=== PATIENT | female | born 1970 | race Caucasian/White ===

== ENCOUNTER 2025-02-03 21:55 | Emergency (ER) | payer MEDICAID, SELFPAY ==
--- NOTE | 2025-02-03 22:06 | EDNOTE_ITS ---
ED Chest Pain RME/HPI General Chief Complaint: Chest Pain Stated Complaint: CHEST PAIN Time Seen by Provider: 02/03/25 22:22 Arrival date/time: 02/03/25 21:55 Limitations: no limitations RME / HPI RME / HPI narrative: Dr. Bae's Main ED Evaluation: 54yo female with a history of DM presents to the ED for a chief complaint of mid chest pain. No radiation or migration. EMS administered nitroglycerin sublingual and 1-inch nitropaste en route. Blood sugar en route was 101. Patient reports associated diarrhea. No fever, chills, or any other associated symptoms. Related Data Home Medications ?Medication ?Instructions ?Recorded ?Confirmed insulin glargine 100 unit/mL (3 40 unit subcut QAM 10/30/22 mL) subcutaneous pen (Lantus Solostar U-100 Insulin) Previous Rx's ?Medication ?Instructions ?Recorded blood sugar diagnostic (Accu-Chek #100 ea 08/07/22 Evelyn Plus test strips) pen needle, diabetic 32 gauge x #100 ea 08/07/2207/11 (BD Ultra-Fine Micro Pen Needle) insulin degludec 100 unit/mL (3 40 unit (0.4 mL) subcu t QAM 1 11/01/22 mL) subcutaneous pen (Tresiba month #12 mL FlexTouch U-100 insulin) insulin glargine 100 unit/mL (3 40 unit (0.4 mL) subcu t QAM 1 11/01/22 mL) subcutaneous pen (Lantus month #12 mL Solostar U-100 Insulin) insulin glargine U-300 conc 300 40 unit (0.1333 mL) bocanegra bcut QDAY 1 11/01/22 unit/mL (3 mL) subcutaneous pen month #3.999 mL (Toujeo Max U-300 SoloStar) insulin glargine-yfgn 100 unit/mL 40 unit (0.4 mL) sub cut QDAY 11/01/22 (3 mL) subcutaneous pen (Semglee month #12 mL (insulin glargine-yfgn) Pen) insulin lispro 100 unit/mL 12 unit (0.12 mL) subcut TI D 11/01/22 subcutaneous pen month #10.8 mL insulin glargine 100 unit/mL 20 unit (0.2 mL) subcut B ID #20 mL 11/09/23 subcutaneous solution (Lantus U-100 Insulin) Allergies Allergy/AdvReac Type Severity Reaction Status Date / Time codeine Allergy Mild Vomiting Verified 11/09/23 19:56 Review of Systems Review of Systems Systems Reviewed: All systems reviewed, normal except as documented Past Medical History Past Medical History NEUROLOGIC: Positive Cerebrovascular Accident CARDIAC: Negative Congestive Heart Failure RESPIRATORY: Negative Chronic Obstructive Pulmonary Disease (COPD) GASTROINTESTINAL: Negative Gastrointestinal Disorders GENITOURINARY: Negative Renal Disease ENDOCRINE: Positive Endocrine Disorders and Diabetes Mellitus Type 1; Negative Diabetes Mellitus Type 2 PSYCHO/SOCIAL: Positive Psychiatric Problems, Recreational Drug Use and Anxiety OTHER HISTORY: Positive Chicken Pox and Hepatitis C (2011) Surgical History SURGICAL: Positive Tonsillectomy and Tubal Ligation Social History SMOKING STATUS: Former smoker SECOND HAND EXPOSURE: No SUBSTANCE USE: former substance user, IV drugs and methamphetamine ED Exam General Limitations: Present no limitations General appearance: Present alert and in no apparent distress Head Head exam: Present atraumatic Eye Eye exam: Present normal appearance, PERRL and EOMI ENT ENT exam: Present normal exam, normal oropharynx and mucous membranes moist Neck Neck exam: Present normal inspection, full ROM and trachea midline Chest Chest inspection: Present normal inspection and symmetric chest wall rise Respiratory Respiratory exam: Present normal lung sounds bilaterally Cardiovascular Cardiovascular exam: Present regular rate, normal rhythm and normal heart sounds Abdominal Exam Abdominal exam: Present soft and normal bowel sounds Extremities Exam Extremities exam: Present normal inspection and full ROM Back Exam Back exam: Present normal inspection and full ROM Neurological Exam Neurological exam: Present alert, oriented X3 and CN II-XII intact Psychiatric Psychiatric exam: Present normal affect and normal mood Skin Skin exam: Present warm, dry, intact and normal color Course Course Course Narrative: CXR is ordered for determining the etiology of chest pain. Quality Measures none Orders Category Date Time Status EKG (ED ONLY) *Do not use* NOW Care 02/03/25 22:02 Completed CXRP [XR chest 1V portable] Stat Exams 02/03/25 22:23 Completed EKG (ED Only) Stat Exams 02/03/25 22:02 Ordered BNP [B-Type Natriuretic Peptide] Stat Lab 02/03/25 22:32 Completed Beta Hydroxybutyrate Stat Lab 02/03/25 23:17 Completed CBC Stat Lab 02/03/25 22:32 Completed CMP [Comprehensive Metabolic Panel] Stat Lab 02/03/25 22:32 Completed Drug Screen,Urine Stat Lab 02/04/25 00:18 Completed HCG Qualitative,Urine Stat Lab 02/04/25 00:18 Completed Magnesium Stat Lab 02/03/25 22:32 Completed Troponin I Stat Lab 02/03/25 22:32 Completed Troponin I Stat Lab 02/04/25 02:35 Completed Diazepam Inj [Valium Inj] Med 02/03/25 22:43 Discontinued 2 mg IVP X1 ONE Sodium Chloride 0.9% 1000 ml [Ns] 1,000 ml Med 02/03/25 22:23 Discontinued IV 999 mls/hr Sodium Chloride 0.9% 1000 ml [Ns] 1,000 ml Med 02/03/25 22:25 Discontinued IV 999 mls/hr Vital Signs Vital signs: Vital Signs Temperature 96.9 F 02/03/25 22:19 Pulse Rate 100 02/03/25 22:19 Respiratory Rate 24 H 02/03/25 22:19 Blood Pressure 89/68 L 02/03/25 22:19 Pulse Oximetry (%) 99 02/03/25 22:19 Oxygen Delivery Method Room Air 02/03/25 22:19 Chest Pain MDM Narrative MDM Narrative:: Scribe Attestation: 02/03/25 Ghada Felipe am scribing for and in the presence of Dr. Bae. Patient data External records reviewed:: [facility] previous records (Per chart review, patient was seen here on 11/09/23 for dehydration.) and EMS form Clinical information provided by:: patient and EMS Social determinants that could affect healthcare access:: substance use (history of methamphetamine abuse) Patient has the following chronic illnesses:: DM How is presenting disease/condition affected by chronic disease/condition?: uneffected by Evaluation data The following diagnostics were reviewed and interpreted by me:: lab results, radiology exam(s) and EKG tracing(s) Lab and/or radiology exams considered but not ordered:: none Interpretation Summary: WBC 15.7, Troponin x2 normal, BNP normal, Electrolytes normal, HCG negative, UDS positive for methamphetamines. EKG done at 2202, sinus tachycardia, rate of 106, RBBB, ST depression in V6, no ST elevations, according to my interpretation. [place] [address] [place] [facility] Report Signed Patient: SERGIO ALVARADO Record#: [id number] Birthdate: 1970 Age/Sex: 54 / F Location: [facility] Attending Dr: Ordering Physician: Clarissa Sandoval MD Date of Service: 02/03/25 Procedure(s): XR chest 1V portable Accession Number(s): [id number] cc: Foster Rizvi MD; NO PRIMARY/FAMILY,PHYSICIAN; Clarissa Sandoval MD~ Examination: AP chest single view TECHNIQUE: AP portable semiupright chest single view Date and time: February 03, 2025 10:41 PM INDICATION: Chest pain today. FINDINGS: Normal heart size Lungs are clear. The osseous structures are intact IMPRESSION: No active disease Dictated By: Foster Rizvi MD Signed By: <Electronically signed by Foster Rizvi MD in OV> 02/03/25 2232 Medications / Prescriptions Medications or Prescriptions considered but not ordered:: none Medication administrations:: Medication Administration History Discontinued Medications Diazepam (Diazepam Inj 5 Mg/Ml Vial 2 Ml) 2 mg IVP X1 ONE Stop: 02/03/25 22:44 Last Admin: 02/03/25 22:54 Dose: 2 mg Documented By: CHARU Sodium Chloride (Ns) 1,000 mls @ 999 mls/hr IV .Q1H1M ONE Stop: 02/03/25 23:23 Last Infusion: 02/04/25 00:14 Dose: Infused Documented By: Admin: 02/03/25 22:35 Dose: 999 mls/hr Documented By: CHARU Sodium Chloride (Ns) 1,000 mls @ 999 mls/hr IV .Q1H1M ONE Stop: 02/03/25 23:25 Last Infusion: 02/04/25 00:14 Dose: Infused Documented By: Admin: 02/03/25 22:37 Dose: 999 mls/hr Documented By: CHARU see above Consultations Consultation(s) initiated? (list below): No Diagnosis Chest Pain Differential Diagnosis: atypical chest pain and other (electrolyte abnormality, anxiety, NSTEMI, ischemia) Most likely diagnosis given after review of the tests above:: see clinical impression below Admission Indicated Admission indicated?: not indicated Explain why admission is indicated or not indicated:: Patient is resting comfortably and is stable to be discharged home. Admission Request Was there a request for admission?: No Disposition Plan Disposition Plan: Discharge Discharge Attestation Discharge Attestation: The patient and all family members were given an opportunity to ask questions and understood the discharge instructions. Discharge instructions specifically effects, indications for sooner follow up or return to the emergency department, and the expected course of current diagnosis. Patient condition: Stable Discharge Plan Plan Patient Disposition: HOME (Self Care) Patient condition on transfer: Stable Prescriptions/Referrals Prescriptions/Med Rec: No Action (DME) pen needle, diabetic [BD Ultra-Fine Micro Pen Needle] 32 gauge x 1/4 needle See Rx Instructions .Route Qty: 100 0RF Rx Instructions: As directed (DME) Accu-Chek Evelyn Plus test strp Strip See Rx Instructions .Route Qty: 100 0RF Rx Instructions: As directed insulin glargine [Lantus Solostar U-100 Insulin] 100 unit/mL (3 mL) insulin pen 40 unit SUBCUT QAM insulin glargine-yfgn [Semglee(insulin glarg-yfgn)Pen] 100 unit/mL (3 mL) insulin pen 40 unit subcut QDAY 30 Days Qty: 12 2RF insulin glargine [Lantus Solostar U-100 Insulin] 100 unit/mL (3 mL) insulin pen 40 unit subcut QAM 30 Days Qty: 12 2RF Toujeo Max U-300 SoloStar 300 unit/mL (3 mL) insulin pen 40 unit subcut QDAY 30 Days Qty: 3.999 2RF Rx Instructions: Sending multiple prescriptions. Please only dispense 1 form of insulin which is covered/cheapest option for patient. insulin degludec [Tresiba FlexTouch U-100] 100 unit/mL (3 mL) insulin pen 40 unit subcut QAM 30 Days Qty: 12 2RF insulin lispro 100 unit/mL insulin pen 12 unit subcut TID 30 Days Qty: 10.8 2RF insulin glargine [Lantus U-100 Insulin] 100 unit/mL solution 20 unit subcut BID Qty: 20 0RF Referrals: [facility] [Outside] - In 1 week Problem List Clinical Impression: Atypical chest pain Patient/Caregiver Discharge Instructions Education Materials: ED Chest Pain, Uncertain Cause Additional Instructions: Return to the Emergency Department for worsening symptoms or other concerns. Please continue medication as prescribed. Print Language: Romanian Stand Alone Forms: Consuelo Award Info., Patient Portal Info Letter
[2025-02-03 22:15] VITALS: PULSE 100
[2025-02-03 22:16] VITALS: PULSE 100; O2SAT 94; BMI 25.4
[2025-02-03 22:19] VITALS: BP 89/68; PULSE 100; RESP 24; TEMP 36.1; O2SAT 99
--- NOTE | 2025-02-03 22:23 | XR_ITS ---
Examination: AP chest single view TECHNIQUE: AP portable semiupright chest single view Date and time: February 03, 2025 10:41 PM INDICATION: Chest pain today. FINDINGS: Normal heart size Lungs are clear. The osseous structures are intact IMPRESSION: No active disease
[2025-02-03] MEDS: SODIUM CHLORIDE 0.9% 1000 ML 1,000 ML 999 ML IV ×2 (22:35→22:37)
[2025-02-03 22:38] VITALS: BP 94/69
[2025-02-03 22:50] LABS: Basophils # (Auto) 0.1 Thou/mm3 (0.0-0.2); Basophils % (Auto) 1 % (0-2.5); Eosinophils # (Auto) 0.1 Thou/mm3 (0.0-0.5); Eosinophils % (Auto) 1 % (0-10); Hematocrit 48.3 % (36.0-46.0); Hemoglobin 16.0 g/dL (12.0-16.0); Immature Granulocytes Auto 0.06 Thou/mm3 (0.00-0.00); Lymphocytes # (Auto) 1.5 Thou/mm3 (1.0-4.8); Lymphocytes % (Auto) 10 % (10-50); Mean Corpuscular HGB Conc 33.1 g/dl (31.0-37.0); Mean Corpuscular Hemoglobin 28.3 pg (25.0-35.0); Mean Corpuscular Volume 86 fL (80-100); Monocytes # (Auto) 0.7 Thou/mm3 (0.0-0.8); Monocytes % (Auto) 5 % (0-12); Neutrophils # (Auto) 13.2 Thou/mm3 (1.8-7.7); Neutrophils % (Auto) 84 % (37-80); Nucleated Red Blood Cell # 0.00 Thou/mm3 (0.00-0.00); Nucleated Red Blood Cell % 0 /100 WBC (0); Platelet Count 473 Thou/mm3 (140-440); RDW Standard Deviation 41.1 fL (36.4-46.3); Red Blood Count 5.65 Miln/mm3 (4.00-5.20); White Blood Count 15.7 Thou/mm3 (3.6-11.0)
[2025-02-03] MEDS: DIAZEPAM INJ 5 MG/ML VIAL 2 ML 2 MG IVP (22:54)
[2025-02-03 23:13] LABS: B-Type Natriuretic Peptide 20 pg/mL (0-100)
[2025-02-03 23:14] LABS: Alanine Aminotransferase 131 U/L (10-49); Albumin, Serum 5.2 gm/dL (3.5-5.0); Albumin/Globulin Ratio 1.4 (1.2-2.2); Alkaline Phosphatase 151 U/L (46-116); Anion Gap 10 (7-16); Aspartate Amino Transferase 73 U/L (0-34); BUN/Creatinine Ratio 19 Ratio (12-20); Bilirubin,Total 0.6 mg/dL (0.3-1.2); Blood Urea Nitrogen 19 mg/dL (9-23); Calcium 10.9 mg/dL (8.3-10.6); Calcium (Corrected) 10.9 mg/dL (8.5-10.1); Carbon Dioxide 26.0 mMol/L (20.0-31.0); Chloride 100 mMol/L (98-107); Creatinine (Component) 1.0 mg/dL (0.6-1.3); Estimated Creatinine Clearance 56.8 mL/min (>60); Globulin 3.7 gm/dL (2.3-3.5); Glucose 97 mg/dL (74-106); Osmolality,Calculated 274 (275-295); Potassium 3.5 mMol/L (3.4-5.1); Sodium 136 mMol/L (136-145); Total Protein 8.9 gm/dL (5.7-8.2); Troponin I < 0.002 ng/mL (0.0-0.045); eGFR > 60 See Note
[2025-02-03 23:28] LABS: Beta Hydroxybutyrate 0.2 mmol/L (<0.6)
[2025-02-03 23:40] LABS: Magnesium 1.8 mg/dL (1.6-2.6)
[2025-02-04 00:19] VITALS: BP 133/83; PULSE 101; RESP 15; O2SAT 95
[2025-02-04 00:24] VITALS: PULSE 99
--- NOTE | 2025-02-04 00:40 | PC.NURSE ---
PT AMBULATED TO RESTROOM WITHOUT ASSISTANCE. PTS GAIT WAS STEADY. PT DENIES WEAKNESS AND SOB
[2025-02-04 00:45] LABS: HCG Qualitative,Urine Negative
[2025-02-04 00:59] LABS: Amphetamine/Methamp Scrn,U Positive (Negative); Barbiturate Screen,Urine Negative (Negative); Benzodiazepines Screen,Urine Negative (Negative); Benzoylecgonine Screen, Ur Negative (Negative); Fentanyl Screen,Urine Negative (Negative); Opiate Screen,Urine Negative (Negative); THC Screen,Urine Negative (Negative)
[2025-02-04 03:03] LABS: Troponin I < 0.002 ng/mL (0.0-0.045)
[2025-02-04 03:21] VITALS: BP 114/73; PULSE 102; RESP 17; TEMP 36.5; O2SAT 95
--- NOTE | 2025-02-04 03:24 | PC.NURSE ---
patient is resting quietly in bed with eyes closed, respirations are even and unlabored, and there is no acute distress. CHEST RISE AND FALL NOTED. PT WAS AWAKEN FOR VITAL SIGNS
[2025-02-04 05:16] VITALS: BP 115/80; PULSE 95; RESP 18; TEMP 36.1; O2SAT 95
== END 2025-02-04 05:17 | disposition home or self-care (01) ==
PROVIDERS: Emergency Provider Emergency Medicine
DX: R07.89 Other chest pain (principal); R00.0 Tachycardia, unspecified; I45.10 Unspecified right bundle-branch block
CPT/HCPCS: 36415; 71045; 80053; 80307; 81025; 82010; 83735; 83880; 84484; 85025; 93005; 96361; 96374; 99283; J3360; J7030

== ENCOUNTER 2025-05-03 00:38 | Inpatient (IN) | payer SELFPAY ==
[2025-05-03] VITALS (41 sets, daily range): BP systolic 65–142; BP diastolic 43–80; PULSE 66–120; RESP 14–31; TEMP 36.5–37.4; O2SAT 90–100; BMI 25.5; BMI 25.4
--- NOTE | 2025-05-03 01:07 | PD.EDRME ---
Rapid Medical Screening Exam RME Arrival date/time: 05/03/25 00:38 This is a case of 55-year-old female with history of diabetes and DKA came into the emergency room due to abdominal pain nausea vomiting today worsening of the symptoms this patient decided to start consulted in the emergency room Chief Complaint: Nausea/Vomiting/Diarrhea Time Seen by Provider: 05/03/25 01:06 Vital signs: Vital Signs Temperature 97.7 F 05/03/25 00:52 Pulse Rate 66 05/03/25 00:52 Respiratory Rate 26 H 05/03/25 00:52 Blood Pressure 65/43 L 05/03/25 00:52 Pulse Oximetry (%) 98 05/03/25 00:52 Oxygen Delivery Method Room Air 05/03/25 00:52 Exam: Patient is dehydrated in distress mild to moderate tenderness on the periumbilical area Clinical Impression: Abdominal pain nausea vomiting hyperglycemia hypotensive
[2025-05-03] MEDS: SODIUM CHLORIDE 0.9% 1000 ML 1,000 ML 999 ML IV ×2 (01:37→02:20)
[2025-05-03 01:54] LABS: Base Excess, Venous -19 (-3-3); O2 Saturation, Venous 79 % (96-97); PCO2, Venous 31 mmHg (36-56); PO2, Venous 50 mmHg (15-58); pH, Venous 7.11 (7.33-7.66)
[2025-05-03 01:58] LABS: Basophils # (Auto) 0.1 Thou/mm3 (0.0-0.2); Basophils % (Auto) 0 % (0-2.5); Eosinophils # (Auto) 0.0 Thou/mm3 (0.0-0.5); Eosinophils % (Auto) 0 % (0-10); Hematocrit 45.4 % (36.0-46.0); Hemoglobin 14.6 g/dL (12.0-16.0); Immature Granulocytes Auto 0.31 Thou/mm3 (0.00-0.00); Lymphocytes # (Auto) 1.8 Thou/mm3 (1.0-4.8); Lymphocytes % (Auto) 6 % (10-50); Mean Corpuscular HGB Conc 32.2 g/dl (31.0-37.0); Mean Corpuscular Hemoglobin 29.6 pg (25.0-35.0); Mean Corpuscular Volume 92 fL (80-100); Monocytes # (Auto) 2.2 Thou/mm3 (0.0-0.8); Monocytes % (Auto) 7 % (0-12); Neutrophils # (Auto) 26.0 Thou/mm3 (1.8-7.7); Neutrophils % (Auto) 86 % (37-80); Nucleated Red Blood Cell # 0.00 Thou/mm3 (0.00-0.00); Nucleated Red Blood Cell % 0 /100 WBC (0); Platelet Count 441 Thou/mm3 (140-440); RDW Standard Deviation 43.3 fL (36.4-46.3); Red Blood Count 4.93 Miln/mm3 (4.00-5.20); White Blood Count 30.3 Thou/mm3 (3.6-11.0)
--- NOTE | 2025-05-03 01:59 | EDNOTE_ITS ---
Nausea/Vomit./Diarrhea-RME/HPI General Chief complaint: Nausea/Vomiting/Diarrhea Stated complaint: VOMITING, HISTORY DKA, TYPE 1 DM Time Seen by Provider: 05/03/25 01:06 Arrival date/time: 05/03/25 00:38 RME / HPI RME / HPI Narrative: 05/03/25 00:38 This is a case of 55-year-old female with history of diabetes and DKA came into the emergency room due to abdominal pain nausea vomiting today worsening of the symptoms this patient decided to start consulted in the emergency room Dr. Tello?s Main ED Evaluation: 55yo female known IDDM presenting with gross hematemesis intermittently x 1 week up to 5 episodes. Patient reports generalized fatigue and lightheadedness with standing. No fever or chills. Reports blood sugar has been running high . Denies noncompliance regarding i nsulin. No melena or hematochezia. No prior history of PUD or esophageal varices. PSH noncontributory. Reports heavy smoker, denies alcohol or illicit drug use. Related Data Home Medications ?Medication ?Instructions ?Recorded ?Confirmed insulin glargine 100 unit/mL (3 40 unit subcut QAM 10/30/22 mL) subcutaneous pen (Lantus Solostar U-100 Insulin) Previous Rx's ?Medication ?Instructions ?Recorded blood sugar diagnostic (Accu-Chek #100 ea 08/07/22 Evelyn Plus test strips) pen needle, diabetic 32 gauge x #100 ea 08/07/2207/11 (BD Ultra-Fine Micro Pen Needle) insulin degludec 100 unit/mL (3 40 unit (0.4 mL) subcu t QAM 1 11/01/22 mL) subcutaneous pen (Tresiba month #12 mL FlexTouch U-100 insulin) insulin glargine 100 unit/mL (3 40 unit (0.4 mL) subcu t QAM 11/01/22 mL) subcutaneous pen (Lantus month #12 mL Solostar U-100 Insulin) insulin glargine U-300 conc 300 40 unit (0.1333 mL) bocanegra bcut QDAY 11/01/22 unit/mL (3 mL) subcutaneous pen month #3.999 mL (Toujeo Max U-300 SoloStar) insulin glargine-yfgn 100 unit/mL 40 unit (0.4 mL) sub cut QDAY 1 11/01/22 (3 mL) subcutaneous pen (Semglee month #12 mL (insulin glargine-yfgn) Pen) insulin lispro 100 unit/mL 12 unit (0.12 mL) subcut TI D 1 11/01/22 subcutaneous pen month #10.8 mL insulin glargine 100 unit/mL 20 unit (0.2 mL) subcut B ID #20 mL 11/09/23 subcutaneous solution (Lantus U-100 Insulin) Allergies Allergy/AdvReac Type Severity Reaction Status Date / Time codeine Allergy Mild Vomiting Verified 05/03/25 00:39 Review of Systems Review of Systems Systems Reviewed: All systems reviewed, normal except as documented Past Medical History Past Medical History NEUROLOGIC: Positive Cerebrovascular Accident CARDIAC: Negative Congestive Heart Failure RESPIRATORY: Negative Chronic Obstructive Pulmonary Disease (COPD) GASTROINTESTINAL: Negative Gastrointestinal Disorders GENITOURINARY: Negative Renal Disease ENDOCRINE: Positive Endocrine Disorders and Diabetes Mellitus Type 1; Negative Diabetes Mellitus Type 2 PSYCHO/SOCIAL: Positive Psychiatric Problems, Recreational Drug Use and Anxiety OTHER HISTORY: Positive Chicken Pox and Hepatitis C (2011) Surgical History SURGICAL: Positive Tonsillectomy and Tubal Ligation Social History SMOKING STATUS: Current some day smoker SECOND HAND EXPOSURE: No SUBSTANCE USE: former substance user, IV drugs and methamphetamine ED Exam Narrative Physical exam: GENERAL APPEARANCE: alert and oriented x 4, active hematemesis, in mild distress VITALS: All vitals were reviewed and the pulse ox is 98% on room air, which is normal according to my interpretation. Notably hypotensive and tachycardic. HEENT: Normocephalic, atraumatic; pupils equal, round, reactive to light; EOMI; mucous membranes pink, moist; obvious blood in the oral cavity NECK: Supple LUNGS: CTABL; no wheezes, no rales, no rhonchi HEART: Tachycardic, regular rhythm; normal S1, S2; no murmurs ABDOMEN: non distended; normal BS; soft, no tenderness, no guarding, no rebound; no masses, no organomegaly, no hernia BACK: no CVA tenderness EXTREMITIES: atraumatic; no edema; slightly cold on palpation NEUROLOGIC: awake; alert and oriented x4; cranial nerves II-XII grossly intact; no focal sensory or motor deficits PSYCHIATRIC: appropriate mood and affect SKIN: warm, dry, pale; no rashes Course Quality Measures none Orders Category Date Time Status Bedside Blood Glucose STAT Care 05/03/25 02:31 Active Buffer Copper STAT Care 05/03/25 02:31 Active DKA Protocol QSHIFT Care 05/03/25 02:31 Active EKG (ED ONLY) *Do not use* NOW Care 05/03/25 02:32 Completed IV [Insert IV] NOW Care 05/03/25 01:32 Active Intake and Output Routine Care 05/03/25 02:31 Ordered NPO NOW Care 05/03/25 02:32 Active Notify provider NEEDED Care 05/03/25 02:31 Active Referral Registered Dietitian Routine Cons 05/03/25 02:[address] abdomen pelvis wo con Stat Exams 05/03/25 03:27 Taken EKG (ED Only) Stat Exams 05/03/25 02:31 Ordered XR chest 1V portable Stat Exams 05/03/25 02:52 Taken Arterial Blood Gas Stat Lab 05/03/25 02:58 Completed Beta HCG,Quantitative Stat Lab 05/03/25 01:36 Completed Beta Hydroxybutyrate Stat Lab 05/03/25 01:39 Completed Blood Culture (Lab) Stat Lab 05/03/25 01:39 Received CBC Stat Lab 05/03/25 01:39 Completed Comprehensive Metabolic Panel Stat Lab 05/03/25 01:39 Completed HCG Qualitative,Urine Stat Lab 05/03/25 04:33 Completed Lactate (Lactic Acid) Stat Lab 05/03/25 01:39 Results Lipase Stat Lab 05/03/25 01:39 Completed Magnesium Stat Lab 05/03/25 01:39 Completed Phosphorous Stat Lab 05/03/25 01:39 Completed Procalcitonin Stat Lab 05/03/25 01:36 Completed Type and Screen Stat Lab 05/03/25 02:30 Completed Urinalysis Stat Lab 05/03/25 04:33 Completed Urinalysis, C/S if Indicated Stat Lab 05/03/25 04:33 Received Venous Blood Gas Stat Lab 05/03/25 01:39 Completed ALBUTEROL RT 0.5ml [Proventil Rt 0.5ml] Med 05/03/25 02:41 Discontinued 10 mg INH X1 ONE Calcium Chloride 10% Abboject Med 05/03/25 02:41 Discontinued 10 ml IV X1 ONE Dextrose 5%-Lactated Ringers [D5-Lr] 1,000 ml Med 05/03/25 02:31 Active Pot Chl Additive [KCl Additive] 40 meq IV 250 mls/hr Dextrose 5%-Lactated Ringers [D5-Lr] 1,000 ml Med 05/03/25 02:31 Active IV 250 mls/hr Dextrose 50% Syr [D50w Syringe Abboject] Med 05/03/25 02:31 Active 25 ml IV PRNMRX1 PRN Insulin Regular Med 05/03/25 02:31 Discontinued 7 unit IV X1 ONE KCL 20 mEq/L in D5-LR Med 05/03/25 02:31 Active 20 meq in 1,000 ml IV 250 mls/hr Magnesium Sulfate 2 GM Ivpb [Magnesium Sulfate Ivpb] Med 05/03/25 02:31 Active 2 gm in 50 ml IV 25 mls/hr POT PHOS 15 mMol in NS 250 ML [Pot Phos 15 mMol in NS Med 05/03/25 02:31 Active 250 ml] 15 mmol in 250 ml IV PRN POTASSIUM CHL 10 mEq IVPB [Kcl Ivpb] Med 05/03/25 02:31 Active 10 meq in 100 ml IV 100 mls/hr POTASSIUM CHL 10 mEq IVPB [Kcl Ivpb] Med 05/03/25 02:31 Active 10 meq in 100 ml IV PRN Pantoprazole Inj [Protonix Inj] Med 05/03/25 02:09 Discontinued 80 mg IVP X1 ONE Pantoprazole Inj [Protonix Inj] Med 05/03/25 02:37 Discontinued 80 mg IVP X1 ONE Pantoprazole/Ns 80Mg IV Premix [Protonix/NS 80mg IV Med 05/03/25 02:10 Active Premix] 80 mg in 100 ml IV Q10H Piper/Tazo Inj [Zosyn Inj] 3.375 gm Med 05/03/25 02:45 Discontinued Sodium Chloride 0.9% (Pop) [NS 0.9% mini bag] 100 ml IV X1 Piper/Tazo Inj [Zosyn Inj] 4.5 gm Med 05/03/25 06:00 Pending Sodium Chloride 0.9% (Pop) [NS 0.9% mini bag] 100 ml IV Q8HR Pre-Mixed [Pre-mixed Bag] 1 bag Med 05/03/25 02:31 Active Insulin Reg 100 Units/100 ml [Myxredlin] 100 unit IV 0.1 unit/kg/hr Ringers Lactated 1000 ml [Lactated Ringers] 1,000 ml Med 05/03/25 02:31 Active Pot Chl Additive [KCl Additive] 20 meq IV 250 mls/hr Ringers Lactated 1000 ml [Lactated Ringers] 1,000 ml Med 05/03/25 02:31 Active Pot Chl Additive [KCl Additive] 40 meq IV 250 mls/hr Ringers Lactated 1000 ml [Lactated Ringers] 1,000 ml Med 05/03/25 02:31 Active IV 250 mls/hr Sodium Bicarb 8.4% SYR Med 05/03/25 02:31 Active 50 ml IV Q4HR PRN Sodium Chloride 0.9% 1000 ml [Ns] 1,000 ml Med 05/03/25 01:06 Discontinued IV 999 mls/hr Sodium Chloride 0.9% 1000 ml [Ns] 1,000 ml Med 05/03/25 02:09 Discontinued IV 999 mls/hr Sodium Chloride 0.9% 1000 ml [Ns] 1,000 ml Med 05/03/25 02:11 Discontinued IV 999 mls/hr Sodium Chloride 0.9% 250 ml [Ns] 250 ml Med 05/03/25 02:31 Active Sod Phos Additive [NaPhos Additive] 15 mmol IV 62.5 mls/hr Sodium Chloride Rt Sarai 0.9% [NS Rt Sarai 0.9%] Med 05/03/25 02:41 Active 3 ml INH PRN PRN Vancomycin Inj 1,000 mg Med 05/03/25 02:38 Discontinued Sodium Chloride 0.9% 250 ml [Ns] 250 ml IV X1 Vital Signs Vital signs: Vital Signs Temperature 97.7 F 05/03/25 00:52 Pulse Rate 66 05/03/25 00:52 Respiratory Rate 26 H 05/03/25 00:52 Blood Pressure 65/43 L 05/03/25 00:52 Pulse Oximetry (%) 98 05/03/25 00:52 Oxygen Delivery Method Room Air 05/03/25 00:52 Nausea/Vomiting/Diarrhea MDM Narrative MDM Narrative:: Scribe Attestation: 05/03/25 - I, Ghada Prashant, am scribing for and in the presence of Dr. Tello. 55yo female known IDDM presenting with gross hematemesis intermittently x 1 week up to 5 episodes. Patient reports generalized fatigue and lightheadedness with standing. Please see PE findings. Lab markers demonstrated WBC 30.3, Hgb 14.6, left shift without bandemia. Chemistries demonstrated markedly elevated K 6.8, Cl 77, markedly elevated AG 33, Creatinine 4.1 demonstrating acute renal failure, Glucose 1438, elevated osmolality at 329, and Lipase at 1146. Beta Hydroxybutyrate >6.4. Patient immediately triaged to monitored bed, IV established, and received IV fluids to correct volume deficit. On initial presentation, patient demonstrated gross hematemesis of 200-300cc. Patient star pipo on Protonix drip and was enrolled in sepsis protocol. IV empiric antibiotics administered. Dx: DKA, acute renal failure, hyperkalemia, acute pancreatitis, acute upper GI bleed Patient data External records reviewed:: [facility] previous records (Per chart review, patient was seen here on 02/03/25 for atypical chest pain.) Clinical information provided by:: patient Social determinants that could affect healthcare access:: substance use (tobacco use) Patient has the following chronic illnesses:: DMI How is presenting disease/condition affected by chronic disease/condition?: exacerbated by Evaluation data The following diagnostics were reviewed and interpreted by me:: lab results, radiology exam(s) and EKG tracing(s) Lab and/or radiology exams considered but not ordered:: none Interpretation Summary: CXR shows increased markings at the left lower lobe consistent with possible consolidation, no pleural effusions, normal cardiac silhouette, according to my interpretation. EKG done at 0248, sinus tachycardia, rate of 103, diffuse peaked T-waves throughout the precordium, RBBB, normal axis, normal intervals, according to my interpretation. Telerad Preliminary Report Draft Patient: SERGIO ALVARADO [facility]. Record#: [id number] Birthdate: 1970 Age/Sex: 55 / F [facility] Att[facility] Dr: Ordering Physician: Date of Service: Procedure(s): Accession Number(s): cc: ~ CT abdomen and pelvis without intravenous contrast (axial sections with sagittal and coronal reformats) May 03, 2025 at 0446 hours Clinical History: Pancreatitis/ Gastrointestinal bleed. Comparison: No prior study is available for comparison. Findings: The lung bases are clear. The head and body of the pancreas are edematous with mild peripancreatic fat stranding. There is a no peripancreatic fluid. Contiguous spread of inflammation is seen to third part of duodenum. The liver, gallbladder, spleen, kidneys and adrenals are unremarkable on this noncontrast study. No evidence of bowel obstruction. The appendix is within normal limits (images 130-141/[id number]). Abundant amount of fecal matter is seen within the colon. There is no mesenteric or retroperitoneal adenopathy. The urinary bladder is unremarkable. There is a small uterine fibroid .There is no free air. The osseous structures are unremarkable. Impression: Acute pancreatitis without peripancreatic fluid collection. Recommend clinical and laboratory correlation. Constipation. Other findings as described above. Report Electronically Signed By: Bakari Stevenson 05/03/2025 5:15:26 AM Medications / Prescriptions Medications / Prescriptions considered but not ordered:: none Medication administrations:: Medication Administration History Dextrose (Dextrose 50%-Water Inj 50 Ml Syringe) 25 ml IV PRNMRX1 PRN PRN Reason: Blood Sugar - Low Pantoprazole Sodium (Protonix/Ns 80mg Iv Premix) 80 mg in 100 mls @ 10 mls/hr IV Q10H [facility] Stop: 05/06/25 00:09 Last Admin: 05/03/25 03:00 Dose: 10 mls/hr Documented By: LINETTE Potassium Chloride (Kcl Ivpb) 10 meq in 100 mls @ 100 mls/hr IV .Q1H PRN PRN Reason: IF POTASSIUM LESS THAN 3.3 Stop: 06/02/25 02:30 Magnesium Sulfate (Magnesium Sulfate Ivpb) 2 gm in 50 mls @ 25 mls/hr IV .Q2H PRN PRN Reason: PER DKA PROTOCOL Stop: 06/02/25 02:30 Insulin Human Regular 100 unit (/ IV Miscellaneous Supplies) 100 mls @ 6.759 mls/hr IV .[id number] PRN; Protocol PRN Reason: PER PROTOCOL Stop: 06/02/25 02:30 Last Titration: 05/03/25 04:20 Dose: 0.1 unit/kg/hr, 6.759 mls/hr Documented By: LINETTE Co-signed By: KITA Admin: 05/03/25 03:12 Dose: 0.1 unit/kg/hr, 6.759 mls/hr Documented By: LINETTE Co-signed By: Dextrose/Lactated Ringer's (D5-Lr) 1,000 mls @ 250 mls/hr IV .Q4H PRN PRN Reason: PER PROTOCOL Stop: 06/02/25 02:30 Lactated Ringer's (Lactated Ringers) 1,000 mls @ 250 mls/hr IV .Q4H PRN PRN Reason: PER PROTOCOL Stop: 05/04/25 02:30 Potassium Chloride 20 meq/ (Lactated Ringer's) 1,010 mls @ 250 mls/hr IV .Q4H3M PRN PRN Reason: K LEVEL 3.3 TO 5.3mM/L Stop: 06/02/25 02:30 Potassium Chloride 40 meq/ (Lactated Ringer's) 1,020 mls @ 250 mls/hr IV .Q4H5M PRN PRN Reason: K LEVEL < 3.3 mM/L Stop: 06/02/25 02:30 Potassium Chloride 40 meq/ (Dextrose/Lactated Ringer's) 1,020 mls @ 250 mls/hr IV .Q4H5M PRN PRN Reason: K LEVEL < 3.3mM/L Stop: 06/02/25 02:30 Potassium Cl/Dextrose/Lact Ringer's (Kcl 20 Meq/L In D5-Lr) 20 meq in 1,000 mls @ 250 mls/hr IV .Q4H PRN PRN Reason: K LEVEL 3.3 TO 5.3 mM/L Potassium Chloride (Kcl Ivpb) 10 meq in 100 mls @ 50 mls/hr IV PRN PRN PRN Reason: K LEVEL 3.3 to 5.3 & BG > 200 Stop: 06/02/25 02:30 Potassium Phosphate (Pot Phos 15 Mmol In Ns 250 Ml) 15 mmol in 250 mls @ 62.5 mls/hr IV PRN PRN PRN Reason: Phosphate <= 1mg/dL Stop: 06/02/25 02:30 Sodium Phosphate 15 mmol/ (Sodium Chloride) 255 mls @ 62.5 mls/hr IV .Q4H5M PRN PRN Reason: Phosphate <= 1mg/dL and K> than 5.3 Stop: 06/02/25 02:30 Piperacillin Sod/Tazobactam (Sod 4.5 gm/ Sodium Chloride) 100 mls @ 200 mls/hr IV Q8HR CHUY; Protocol Stop: 05/10/25 05:59 Sodium Bicarbonate (Sodium Bicarb Inj 8.4% Syr 50 Ml Syringe) 50 ml IV Q4HR PRN PRN Reason: For ph <= to 7.0 Stop: 06/02/25 02:30 Sodium Chloride (Sodium Chloride Rt Sarai 0.9% 3 Ml Nebu) 3 ml INH PRN PRN PRN Reason: SOLN Stop: 06/02/25 02:40 Last Admin: 05/03/25 02:55 Dose: 3 ml Documented By: DANIEL Discontinued Medications Albuterol (Albuterol Rt 2.5 Mg/0.5 Ml Nebu) 10 mg INH X1 ONE Stop: 05/03/25 02:42 Last Admin: 05/03/25 02:55 Dose: 10 mg Documented By: DANIEL Calcium Chloride (Calcium Chloride 10% Inj 10 Ml Syrg) 10 ml IV X1 ONE Stop: 05/03/25 02:42 Last Admin: 05/03/25 04:31 Dose: 10 ml Documented By: LINETTE Sodium Chloride (Ns) 1,000 mls @ 999 mls/hr IV .Q1H1M ONE Stop: 05/03/25 02:06 Last Infusion: 05/03/25 02:38 Dose: Infused Documented By: Admin: 05/03/25 01:37 Dose: 999 mls/hr Documented By: LINETTE Sodium Chloride (Ns) 1,000 mls @ 999 mls/hr IV .Q1H1M ONE Stop: 05/03/25 03:11 Last Admin: 05/03/25 02:17 Dose: Not Given Documented By: KITA Non-Admin Reason: Discontinued Sodium Chloride (Ns) 1,000 mls @ 999 mls/hr IV .Q1H1M ONE Stop: 05/03/25 03:09 Last Infusion: 05/03/25 03:21 Dose: Infused Documented By: Admin: 05/03/25 02:20 Dose: 999 mls/hr Documented By: KITA Vancomycin HCl 1,000 mg/ (Sodium Chloride) 250 mls @ 150 mls/hr IV X1 ONE Stop: 05/03/25 04:17 Piperacillin Sod/Tazobactam (Sod 3.375 gm/ Sodium Chloride) 100 mls @ 200 mls/hr IV X1 ONE; Protocol Stop: 05/03/25 03:14 Last Infusion: 05/03/25 04:26 Dose: Infused Documented By: Admin: 05/03/25 03:56 Dose: 200 mls/hr Documented By: LINETTE Insulin Human Regular (Insulin Hum Regular 1 Unit/0.01 Ml (Per Unit)) 7 unit IV X1 ONE Stop: 05/03/25 02:32 Last Admin: 05/03/25 02:48 Dose: 7 unit Documented By: LINETTE Co-signed By: KITA Pantoprazole Sodium (Pantoprazole Inj 40 Mg Vial) 80 mg IVP X1 ONE Stop: 05/03/25 02:10 Last Admin: 05/03/25 03:06 Dose: Not Given Documented By: LINETTE Non-Admin Reason: Duplicate Medication on eMAR Pantoprazole Sodium (Pantoprazole Inj 40 Mg Vial) 80 mg IVP X1 ONE Stop: 05/03/25 02:38 Last Admin: 05/03/25 02:44 Dose: 80 mg Documented By: LINETTE see above Consultations Consultation(s) initiated? (list below): Yes Consultation #1 (Physician, Specialty, Details): Discussed case with the resident physician, attending Dr. Yu from Hospitalist service regarding admission. Discussed patients ED course, exam findings, labs, and radiology results. The Hospitalist agrees to accept the patient for admission. Time: 05:25 Diagnosis Nausea Differential Diagnosis: drug-induced nausea and vomiting, dehydration and other (pancreatitis, diverticulitis, electrolyte abnormality) Most likely diagnosis given after review of the tests above:: see clinical impression below Admission Indicated Admission indicated?: indicated Admission Request Was there a request for admission?: Yes Admission Attestation Admission request attestation: Discussed case with [] from Hospitalist service regarding admission. Discussed patients ED course, exam findings, labs, and radiology results. The Hospitalist [agrees,declines] to accept the patient for admission. Disposition Plan Disposition Plan: Admit Critical Care Time Critical Care Time Critical Care Time: Yes Total Critical Care Time (min.): 50 Attestation: The high probability of sudden, clinically significant deterioration in the patient?s condition required the highest level of my preparedness to intervene urgently. The services I provided to this patient were to treat and/or prevent clinically significant deterioration. Services included the following: chart data review, reviewing nursing notes and/or old charts, documentation time, automotive consultant collaboration regarding findings and treatment options, medication orders and management, direct patient care, vital sign assessments and ordering, interpreting and reviewing diagnostic studies and lab tests. Aggregate critical care time includes only time during which I was engaged in work directly related to the patient?s care, as described above, whether at bedside or elsewhere in the Emergency Department. It did not include time spent performing other reported procedures or the services of residents, students, nurses or physician assistants. Discharge Plan Plan Patient Disposition: Admit Acute Care w/in Hospital Prescriptions/Referrals Prescriptions/Med Rec: No Action (DME) pen needle, diabetic [BD Ultra-Fine Micro Pen Needle] 32 gauge x 1/4 needle See Rx Instructions .Route Qty: 100 0RF Rx Instructions: As directed (DME) Accu-Chek Evelyn Plus test strp Strip See Rx Instructions .Route Qty: 100 0RF Rx Instructions: As directed insulin glargine [Lantus Solostar U-100 Insulin] 100 unit/mL (3 mL) insulin pen 40 unit SUBCUT QAM insulin glargine-yfgn [Semglee(insulin glarg-yfgn)Pen] 100 unit/mL (3 mL) insulin pen 40 unit subcut QDAY 30 Days Qty: 12 2RF insulin glargine [Lantus Solostar U-100 Insulin] 100 unit/mL (3 mL) insulin pen 40 unit subcut QAM 30 Days Qty: 12 2RF Toujeo Max U-300 SoloStar 300 unit/mL (3 mL) insulin pen 40 unit subcut QDAY 30 Days Qty: 3.999 2RF Rx Instructions: Sending multiple prescriptions. Please only dispense 1 form of insulin which is covered/cheapest option for patient. insulin degludec [Tresiba FlexTouch U-100] 100 unit/mL (3 mL) insulin pen 40 unit subcut QAM 30 Days Qty: 12 2RF insulin lispro 100 unit/mL insulin pen 12 unit subcut TID 30 Days Qty: 10.8 2RF insulin glargine [Lantus U-100 Insulin] 100 unit/mL solution 20 unit subcut BID Qty: 20 0RF Problem List Clinical Impression: DKA (diabetic ketoacidosis), Acute renal failure, Hyperkalemia, Acute pancreatitis, GI bleed Patient/Caregiver Discharge Instructions Print Language: Cameroonian Stand Alone Forms: Consuelo Award Info., Patient Portal Info Letter
[2025-05-03 02:02] LABS: Beta Hydroxybutyrate > 6.4 mmol/L (<0.6)
--- NOTE | 2025-05-03 02:14 | PC.NURSE ---
Pt vomitted a coupeous amount of dark red blood. Dr. Fuentes made aware, see MAR
[2025-05-03 02:28] LABS: Alanine Aminotransferase 74 U/L (10-49); Albumin, Serum 4.6 gm/dL (3.5-5.0); Albumin/Globulin Ratio 1.7 (1.2-2.2); Alkaline Phosphatase 119 U/L (46-116); Anion Gap 33 (7-16); Aspartate Amino Transferase 25 U/L (0-34); BUN/Creatinine Ratio 12 Ratio (12-20); Bilirubin,Total 0.4 mg/dL (0.3-1.2); Blood Urea Nitrogen 49 mg/dL (9-23); Calcium 8.7 mg/dL (8.3-10.6); Calcium (Corrected) 8.7 mg/dL (8.5-10.1); Chloride 77 mMol/L (98-107); Creatinine (Component) 4.1 mg/dL (0.6-1.3); Estimated Creatinine Clearance 14.8 mL/min (>60); Globulin 2.7 gm/dL (2.3-3.5); Lipase 1146 U/L (12-53); Osmolality,Calculated 329 (275-295); Sodium 120 mMol/L (136-145); Total Protein 7.3 gm/dL (5.7-8.2); eGFR 12 See Note
[2025-05-03 02:30] LABS: Carbon Dioxide < 10.0 mMol/L (20.0-31.0); Potassium 6.8 mMol/L (3.4-5.1)
[2025-05-03 02:31] LABS: Glucose 1438 mg/dL (74-106)
--- NOTE | 2025-05-03 02:31 | EKG_ITS ---
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
[2025-05-03] MEDS: INSULIN HUM REGULAR 1 UNIT/0.01 ML (PER UNIT) 7 UNIT IV (02:48)
--- NOTE | 2025-05-03 02:52 | XR_ITS ---
EXAMINATION: AP chest single view TECHNIQUE: Portable AP chest single view Date and time: May 03, 2025, 0303 hours, comparison February 03, 2025 INDICATIONS: Abdominal pain nausea vomiting shortness of breath today FINDINGS: Normal heart size Mild vascular congestion. No lobar pneumonia or pulmonary edema. Prominent osteopenia IMPRESSION: Mild vascular congestion
[2025-05-03] MEDS: SODIUM CHLORIDE RT SOL 0.9% 3 ML NEBU INH (02:55)
[2025-05-03] MEDS: ALBUTEROL RT 2.5 MG/0.5 ML NEBU 10 MG INH (02:55)
[2025-05-03] MEDS: PANTOPRAZOLE/NS 80MG IV PREMIX 80 MG/100 ML BAG 10 MG IV (03:00)
[2025-05-03 03:05] LABS: Base Excess -18 (-3-3); HCO3 9 mEq/L (20-26); Inspired Oxygen, FIO2 21 %; O2 Saturation 98 % (91-98); PCO2 24 mmHg (32.0-48.0); PO2 107 mmHg (83-108)
[2025-05-03] MEDS: INSULIN REG 100 UNITS/100 ML 100 UNIT in PRE-MIXED 1 BAG 6.759 UNIT IV ×2 (03:12→17:00)
[2025-05-03 03:25] LABS: Allen Test Performed/OK; Puncture Site Right Radial; pH, Arterial 7.16 (7.35-7.45)
[2025-05-03 03:27] LABS: Magnesium 2.5 mg/dL (1.6-2.6)
--- NOTE | 2025-05-03 03:27 | XR_ITS ---
Examination: CT abdomen and pelvis without contrast. Coronal 3-D reconstructions. Sagittal 2-D reconstructions. Date and time of exam: May 03, 2025 at 0447 hours INDICATIONS: Abdominal pain and vomiting today, history of diabetic ketoacidosis history pancreatitis gastrointestinal bleeding CTDI: vol (mGy): 8.51 DLP: (mGycm): 451 Technique: Axial images of the abdomen have been obtained, 3 mm slice thickness Intravenous contrast material has not been administered. Low dose protocols were performed. One or more of the following dose reduction techniques were used; automated exposure control, adjustment of the mA and/or KV according to patient size, use of iterative reconstruction technique. Findings: Limited noncontrast study Fatty infiltration throughout the liver no focal liver or splenic lesions Possible gallbladder sludge versus small stones Edematous appearing pancreas on this noncontrast study No hydronephrosis or renal calculi No bowel obstruction Small fat-containing inguinal hernia Normal appendix No pelvic mass Urinary bladder intact The [place] structures are intact IMPRESSION: Suspicious for acute pancreatitis, consider MRCP follow-up
[2025-05-03 03:46] LABS: Phosphorous 10.3 mg/dL (2.4-5.1)
[2025-05-03] MEDS: PIPER/TAZO INJ 3.375 GM in SODIUM CHLORIDE 0.9% (POP) 100 ML IV (03:56)
[2025-05-03 04:10] LABS: Lactate (Lactic Acid) 5.8 mMol/L (0.4-2.0)
[2025-05-03 04:15] LABS: Beta HCG,Quantitative 2 mIU/mL (<5.0); Procalcitonin 1.43 ng/ml (0.0-0.49)
[2025-05-03] MEDS: CALCIUM CHLORIDE 10% INJ 10 ML SYRG IV (04:31)
[2025-05-03 05:03] LABS: Collection Type, Urine Clean Catch
[2025-05-03 05:09] LABS: HCG Qualitative,Urine Negative
[2025-05-03 05:16] LABS: Bilirubin,Urine Negative (Negative); Blood,Urine Negative (Negative); Clarity,Urine Turbid (Clear/Hazy); Color,Urine Lt-Yellow (Lt Yel-Yel); Glucose, Urine 4+ (Negative); Hyaline Casts,Urine < 1 /hpf (0-1); Ketones,Urine 1+ (Negative); Leukocyte Esterase,Urine Negative (Negative); Nitrite,Urine Negative (Negative); PH,Urine 5.5 (5.0-7.0); Protein,Urine Trace (Neg - Trace); RBC,Urine 4 /hpf (0-3); Specific Gravity,Urine 1.021 (1.001-1.035); Squamous Epithelial Cell,Urine 5 /hpf (0-5); Urobilinogen,Urine Negative mg/dL (0.0-1.0); WBC,Urine 4 /hpf (0-5)
--- NOTE | 2025-05-03 05:16 | PRELIM_ITS ---
CT abdomen and pelvis without intravenous contrast (axial sections with sagittal and coronal reformats) May 03, 2025 at 0446 hours Clinical History: Pancreatitis/ Gastrointestinal bleed. Comparison: No prior study is available for comparison. Findings: The lung bases are clear. The head and body of the pancreas are edematous with mild peripancreatic fat stranding. There is a no peripancreatic fluid. Contiguous spread of inflammation is seen to third part of duodenum. The liver, gallbladder, spleen, kidneys and adrenals are unremarkable on this noncontrast study. No evidence of bowel obstruction. The appendix is within normal limits (images 130-141/248). Abundant amount of fecal matter is seen within the colon. There is no mesenteric or retroperitoneal adenopathy. The urinary bladder is unremarkable. There is a small uterine fibroid .There is no free air. The osseous structures are unremarkable. Impression: Acute pancreatitis without peripancreatic fluid collection. Recommend clinical and laboratory correlation. Constipation. Other findings as described above. Report Electronically Signed By: Bakari Stevenson 05/03/2025 5:15:26 AM [EST]
--- NOTE | 2025-05-03 05:42 | ESHP_ITS ---
Documentation for date of: 05/03/25 HPI History of Present Illness History of present illness: Chief complaint: Abdominal pain, dark vomiting HPI: Ms. Joseph is a 55-year-old female with past medical history of poorly controlled type 1 insulin-dependent diabetes mellitus, recurrent DKA, substance use/methamphetamine and hepatitis C, who was presented to the ED on 05/03/2025 with significant abdominal pain, intractable nausea and multiple episodes of vomiting. She also complained of gross hematemesis intermittently over the last week, endorses 3?4 episodes of dark red blood-streaked vomitus. She has also experienced significant fatigue and lightheadedness over the last 48 hours. Patient was seen in the ED yesterday and discharged. Denies any fever or chills. Per patient, her blood sugar has been running high at home. She denies noncompliance with insulin, expresses taking her medications regularly. She has no known history of peptic ulcers or esophageal varices, however did have hepatitis C which was treated in the past. Patient cannot recall when her hepatitis C was diagnosed. Patient is still an active heavy smoker, however denies alcohol or illicit drug use. She denies any other systemic symptoms, exposure or recent travel at this time. Pt was recently at a wedding 4 days and drank a lot of alcohol >8 beers, wine and ?rum. Last Meth use 5 days ago. In the ED, vitals showed tachycardia HR 102-110 bpm, tachypnea 21?26 and soft blood pressure 70?80/40?50 before fluids. Initial laboratory workup remarkable for leukocytosis WBC 20.3 with neutrophil predominance, borderline thrombocytosis 441 PLT, gross abnormalities on the CHEM panel?hyperkalemia 6.8, glucose 1438, anion gap 33, bicarb <10 with ABG pH 7.16 and CO2 24, BHB > 6.4, lactic acid 5.8, RFT: BUN 49 CR 4.1 (baseline 0.5?0.7) and GFR 12, and hyperphosphatemia 10.3. Lipase level noted to be 1146 and Pro-Milan 1.43. Pending urinalysis and urine tox result. On imaging, CT abdomen pelvis showed significant edema surrounding pancreas, malignancy ruled out. Patient will be admitted to ICU for management of DKA and acute pancreatitis. Started on DKA protocol, pending Abdo pelvic CT read. She was given 3 L IVF bolus in the ED, and started on Protonix drip 80 mg over 10 hours. Allergies: NKFDA Social history: Tobacco?Use:?Active smoker , vapes (nicotine) ETOH?Use:?Denies, except for one episode Drug?Note:?Denies, previously positive for meth. Says she is clean since 5 days Social?History?Note:?Lives?at home with family Family history: Unsure Review of Systems Review of Systems Narrative Review of Systems: GENERAL: Denies fevers/chills, diaphoresis. HEENT: Denies headache or visual/hearing changes. Denies nasal discharge. NEURO: Denies unusual weakness or difficulty speaking. CARDIO: Denies chest pain, palpitations. PULM: Denies SOB, cough, wheezing. GI: diffuse abdominal pain, worsening N/V, dark vomitus, no C/D. Reports having BMs URO: Denies burning/itching/pain/urinary changes. 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 MSK/EXT/SKIN: Denies skeletal/muscle pain, changes in upper or lower extremities, itchiness, superficial skin chnages. PSYCH: Cooperative, pleasant mood & affect. The rest of the review of systems is otherwise negative. Exam Vital Signs Temp Pulse Resp BP Pulse Ox O2 Del Method 97.9 F 110 H 23 H 97/60 98 Room Air 05/03/25 03:00 05/03/25 04:00 05/03/25 04:00 05/03/25 04:00 05/03/25 04:00 05/03/25 04:00 Narrative Exam Constitutional Alert, oriented x3. Fatigued HEENT Vision grossly intact, PERRL. Patent nares. Trachea midline. Dried blood around mouth, no teeth, wears dentures since her late 30s Respiratory Chest normal on inspection and clear to auscultation bilaterally. Cardiovascular S1 and S2 audible, RRR. No murmurs or carotid bruit. No gross JVD. Abdominal Soft and BS + ; diffusely tender to palpation, epigastric primarily. Genitourinary No bladder tenderness, no flank pain. Normal to palpation. Musculoskeletal Extremities tone within normal limits. No LE edema. Neurological CN II - XII grossly intact. Extremity motor and sensation grossly intact. Skin Warm, dry and intact. No apparent lesions. Psychiatric Patient has a good affect, is cooperative. Results: Labs 10/27/25 07:37 05/03/25 23:02 Labs: Short CBC 05/03/25 Range/Units 01:39 WBC 30.3 H (3.6-11.0) Thou/mm3 Hgb 14.6 (12.0-16.0) g/dL Hct 45.4 (36.0-46.0) % Plt Count 441 H (140-440) Thou/mm3 BMP 05/03/25 01:39 Sodium 120 L Potassium 6.8 H* Chloride 77 L* Carbon Dioxide < 10.0 L* BUN 49 H Creatinine 4.1 H* Glucose 1438 H* Calcium 8.7 Liver Function 05/03/25 Range/Units 01:39 Total Bilirubin 0.4 (0.3-1.2) mg/dL AST 25 (0-34) U/L ALT 74 H (10-49) U/L Alkaline Phosphatase 119 H (46-116) U/L Albumin 4.6 (3.5-5.0) gm/dL Urine 05/03/25 Range/Units 04:33 Urine Color Lt-Yellow (Lt Yel-Yel) Urine Clarity Turbid A (Clear/Hazy) Urine pH 5.5 (5.0-7.0) Ur Specific [place] 1.021 (1.001-1.035) Urine Protein Trace (Neg - Trace) Urine Glucose (UA) 4+ A (Negative) ABG Interpretation ABG results: 05/03/25 05/03/25 01:39 02:58 ABG pH 7.16 L* ABG pCO2 24 L ABG pO2 107 ABG HCO3 9 L* ABG O2 Saturation 98 ABG Base Excess -18 L VBG pH 7.11 L VBG pCO2 31 L VBG pO2 50 VBG Base Excess -19 L Quality Measures Quality Measures none Medications Home Medications and Allergies Home Medications ?Medication ?Instructions ?Recorded ?Confirmed ?Type insulin glargine 100 unit/mL (3 40 unit subcut QAM 10/30/22 History mL) subcutaneous pen (Lantus Solostar U-100 Insulin) Allergies Allergy/AdvReac Type Severity Reaction Status Date / Time codeine Allergy Mild Vomiting Verified 05/03/25 00:39 Visit Medications Dextrose (Dextrose 50%-Water Inj 50 Ml Syringe) 25 ml IV [id number] PRN PRN Reason: Blood Sugar - Low Pantoprazole Sodium (Protonix/Ns 80mg Iv Premix) 80 mg in 100 mls @ 10 mls/hr IV Q10H CHUY Stop: 05/06/25 00:09 Last Admin: 05/03/25 03:00 Dose: 10 mls/hr Potassium Chloride (Kcl Ivpb) 10 meq in 100 mls @ 100 mls/hr IV .Q1H PRN PRN Reason: IF POTASSIUM LESS THAN 3.3 Stop: 06/02/25 02:30 Magnesium Sulfate (Magnesium Sulfate Ivpb) 2 gm in 50 mls @ 25 mls/hr IV .Q2H PRN PRN Reason: PER DKA PROTOCOL Stop: 06/02/25 02:30 Insulin Human Regular 100 unit (/ IV Miscellaneous Supplies) 100 mls @ 6.759 mls/hr IV .[id number] PRN; Protocol PRN Reason: PER PROTOCOL Stop: 06/02/25 02:30 Last Titration: 05/03/25 04:20 Dose: 0.1 unit/kg/hr, 6.759 mls/hr Dextrose/Lactated Ringer's (D5-Lr) 1,000 mls @ 250 mls/hr IV .Q4H PRN PRN Reason: PER PROTOCOL Stop: 06/02/25 02:30 Lactated Ringer's (Lactated Ringers) 1,000 mls @ 250 mls/hr IV .Q4H PRN PRN Reason: PER PROTOCOL Stop: 05/04/25 02:30 Potassium Chloride 20 meq/ (Lactated Ringer's) 1,010 mls @ 250 mls/hr IV .Q4H3M PRN PRN Reason: K LEVEL 3.3 TO 5.3mM/L Stop: 06/02/25 02:30 Potassium Chloride 40 meq/ (Lactated Ringer's) 1,020 mls @ 250 mls/hr IV .Q4H5M PRN PRN Reason: K LEVEL < 3.3 mM/L Stop: 06/02/25 02:30 Potassium Chloride 40 meq/ (Dextrose/Lactated Ringer's) 1,020 mls @ 250 mls/hr IV .Q4H5M PRN PRN Reason: K LEVEL < 3.3mM/L Stop: 06/02/25 02:30 Potassium Cl/Dextrose/Lact Ringer's (Kcl 20 Meq/L In D5-Lr) 20 meq in 1,000 mls @ 250 mls/hr IV .Q4H PRN PRN Reason: K LEVEL 3.3 TO 5.3 mM/L Potassium Chloride (Kcl Ivpb) 10 meq in 100 mls @ 50 mls/hr IV PRN PRN PRN Reason: K LEVEL 3.3 to 5.3 & BG > 200 Stop: 06/02/25 02:30 Potassium Phosphate (Pot Phos 15 Mmol In Ns 250 Ml) 15 mmol in 250 mls @ 62.5 mls/hr IV PRN PRN PRN Reason: Phosphate <= 1mg/dL Stop: 06/02/25 02:30 Sodium Phosphate 15 mmol/ (Sodium Chloride) 255 mls @ 62.5 mls/hr IV .Q4H5M PRN PRN Reason: Phosphate <= 1mg/dL and K> than 5.3 Stop: 06/02/25 02:30 Piperacillin Sod/Tazobactam (Sod 4.5 gm/ Sodium Chloride) 100 mls @ 200 mls/hr IV Q8HR CHUY; Protocol Stop: 05/10/25 05:59 Sodium Bicarbonate (Sodium Bicarb Inj 8.4% Syr 50 Ml Syringe) 50 ml IV Q4HR PRN PRN Reason: For ph <= to 7.0 Stop: 06/02/25 02:30 Sodium Chloride (Sodium Chloride Rt Sarai 0.9% 3 Ml Nebu) 3 ml INH PRN PRN PRN Reason: SOLN Stop: 06/02/25 02:40 Last Admin: 05/03/25 02:55 Dose: 3 ml Discontinued Medications Albuterol (Albuterol Rt 2.5 Mg/0.5 Ml Nebu) 10 mg INH X1 ONE Stop: 05/03/25 02:42 Last Admin: 05/03/25 02:55 Dose: 10 mg Calcium Chloride (Calcium Chloride 10% Inj 10 Ml Syrg) 10 ml IV X1 ONE Stop: 05/03/25 02:42 Last Admin: 05/03/25 04:31 Dose: 10 ml Sodium Chloride (Ns) 1,000 mls @ 999 mls/hr IV .Q1H1M ONE Stop: 05/03/25 02:06 Last Infusion: 05/03/25 02:38 Dose: Infused Sodium Chloride (Ns) 1,000 mls @ 999 mls/hr IV .Q1H1M ONE Stop: 05/03/25 03:11 Last Admin: 05/03/25 02:17 Dose: Not Given Sodium Chloride (Ns) 1,000 mls @ 999 mls/hr IV .Q1H1M ONE Stop: 05/03/25 03:09 Last Infusion: 05/03/25 03:21 Dose: Infused Vancomycin HCl 1,000 mg/ (Sodium Chloride) 250 mls @ 150 mls/hr IV X1 ONE Stop: 05/03/25 04:17 Piperacillin Sod/Tazobactam (Sod 3.375 gm/ Sodium Chloride) 100 mls @ 200 mls/hr IV X1 ONE; Protocol Stop: 05/03/25 03:14 Last Infusion: 05/03/25 04:26 Dose: Infused Insulin Human Regular (Insulin Hum Regular 1 Unit/0.01 Ml (Per Unit)) 7 unit IV X1 ONE Stop: 05/03/25 02:32 Last Admin: 05/03/25 02:48 Dose: 7 unit Pantoprazole Sodium (Pantoprazole Inj 40 Mg Vial) 80 mg IVP X1 ONE Stop: 05/03/25 02:10 Last Admin: 05/03/25 03:06 Dose: Not Given Pantoprazole Sodium (Pantoprazole Inj 40 Mg Vial) 80 mg IVP X1 ONE Stop: 05/03/25 02:38 Last Admin: 05/03/25 02:44 Dose: 80 mg Assessment & Plan Plan Patient is a 55-year-old female admitted for acute pancreatitis in the setting of DKA ENDO DKA Type 1 IDDM Hx of DKA Dx: - Anion gap 33, bicarb <10 with ABG pH 7.16 and CO2 24 - glucose 1438, BHB > 6.4 - Lactic acid 5.8 - Pt was given 3 L IVF bolus in the ED - Patient was seen in the ED yesterday and discharged. Rx: - Insulin drip per DKA protocol - Continue IV fluid hydration, anticipate improvement in DKA and pancreatitis - Electrolyte repletion per DKA protocol - Hypoglycemia protocol in place - HbA1c ordered for a.m. draw NEURO No active problems CVS Sinus tachycardia Hypotension - improved with IVF Meth use 5 days ago Active smoker, nicotine vape Dx: - ED Vitals: tachycardia HR 102-110 bpm, blood pressure 70?80/40?50 before fluids. - Likely in the setting of DKA Pancreatitis - Actively smokes, vapes with nicotine. Hx of >30 pack years - Pt was recently at a wedding 4 days and drank a lot of alcohol >8 beers, wine and ?rum - Last Meth use 5 days ago Rx: - Continue DKA protocol - Repeat EKG after electrolyte correction - No hx of cardiac work up. Follow up echo to r/o wall motion abnormalities given rapid IVF hydration in the setting of DKA - Consider Nicotine patch PULM No active problems GI/Hep Acute pancreatitis Acute hematemesis History of hep C Alcohol use, recent episode of heavy drinking Dx: - Presented with significant abdominal pain, intractable nausea and multiple episodes of vomiting. - Gross hematemesis intermittently over the last week, endorses 3?4 episodes of dark red blood-streaked vomitus. - Fatigue and lightheadedness over the last 48 hours. - Lipase =- 1146 - Pro-Milan = 1.43 - CT abdomen/pelvis shows netta-pacreatic edema, pending official read. No malignancy. - Malgorzata-Imrie score= 3 , high risk for severe pancreatitis - Ransons's criteria= 4 , 15% predicted mortality - She was given CaCl x in the ED, rachael Ca 8.7 on chem panel - Pt was recently at a wedding 4 days and drank a lot of alcohol >8 beers, wine and ?rum Rx: - On DKA management per protocol. Ancitipate improvement in pancreatitis with fluids. - Started on Protonix drip 80 mg over 10 hours - GI consulted, day team to follow up recs. Patient will likely need EGD after pancreatitis resolves. - NPO. No Hx of PUD or varices. - PRN zofran for N/V RENAL AGMA 2/2 DKA, LA MAHI/ARF Lactic acidosis HyperKalemia HyperPHOSphatemia Dx: Gross abnormalities on the CHEM panel? - RFT: BUN 49 CR 4.1 (baseline 0.5?0.7) and GFR 12, - K 6.8, Phos 10.3 - Anion gap 33, bicarb <10 with ABG pH 7.16 and CO2 24 - glucose 1438, BHB > 6.4 - Lactic acid 5.8 - Pt was given 3 L IVF bolus in the ED Rx: - Insulin drip per DKA protocol - Continue IV fluid hydration, anticipate improvement in DKA and pancreatitis - Pain control: Tylenol (1-4) , Dilaudid 0.5 IV (5-10) - Patient was given 7 units insulin regular x 1, Will give 15 mL Kayexalate x 1, anticipate improvement in potassium levels with insulin drip - Sevelamer 400mg x1, expect correction with improved Renal function HEME/ONC Leukocytosis Dx: - Initial labs: WBC 20.3 with neutrophil predominance Rx: - Likely in the setting of pancreatitis and DKA - Anticipate improvement with IVF and insulin ID No active problems MSK/DERM: Hx of dentures since her late 30s Rx: Able to eat comfortably with dentures Lost teeth due to extensive drug use Able to carry ADLs daily ICU Health maintenance: Dispo: Admit to ICU for acute pancreatitis in the setting of DKA Diet: N.p.o. DVT ppx: SCDs only GI ppx: Protonix drip IV lines: 2 pIV Code status: FULL CODE Plan of care discussed with attending Dr Yu, Rodriguez Newby M.D. PGY3 Disclaimer: Minor errors in master fire control technician may be present as this note was dictated using voice recognition software. Attending Provider Attestation/Addendum After examination of the patient and review of the clinical data I feel that this patient needs admission to the hospital for further treatment/evaluation. TOTAL CC TIME: 75 MIN TOTAL TIME: 75 Minutes of direct medical management and planning of care. I Sherrie Yu MD, attest that I was physically present for ojeda portions of evaluation, and examined patient, labs and imagings and plan of care were discussed with IM residents team, and I agree with the findings and plans documented above.
[2025-05-03] MEDS: Vancomycin Inj 1,000 MG in SODIUM CHLORIDE 0.9% 250 ML 250 ML 150 MG IV (06:12)
[2025-05-03 06:43] LABS: Lactate (Lactic Acid) 6.6 mMol/L (0.4-2.0)
[2025-05-03 06:49] LABS: Reflex Lactate? Y
[2025-05-03] MEDS: RINGERS LACTATED 1000 ML 1,000 ML 999 ML IV (07:33)
[2025-05-03] MEDS: CALCIUM GLUCONATE 10% INJ 1 GM/10 ML VIAL IV (07:39)
[2025-05-03] MEDS: Sodium Bicarb Inj 8.4% SYR 50 ML SYRINGE IV (07:39)
[2025-05-03 07:44] LABS: Basophils # (Auto) 0.0 Thou/mm3 (0.0-0.2); Basophils % (Auto) 0 % (0-2.5); Eosinophils # (Auto) 0.0 Thou/mm3 (0.0-0.5); Eosinophils % (Auto) 0 % (0-10); Hematocrit 38.2 % (36.0-46.0); Hemoglobin 13.5 g/dL (12.0-16.0); Immature Granulocytes Auto 0.13 Thou/mm3 (0.00-0.00); Lymphocytes # (Auto) 0.7 Thou/mm3 (1.0-4.8); Lymphocytes % (Auto) 4 % (10-50); Mean Corpuscular HGB Conc 35.3 g/dl (31.0-37.0); Mean Corpuscular Hemoglobin 29.0 pg (25.0-35.0); Mean Corpuscular Volume 82 fL (80-100); Monocytes # (Auto) 1.5 Thou/mm3 (0.0-0.8); Monocytes % (Auto) 8 % (0-12); Neutrophils # (Auto) 17.9 Thou/mm3 (1.8-7.7); Neutrophils % (Auto) 88 % (37-80); Nucleated Red Blood Cell # 0.00 Thou/mm3 (0.00-0.00); Nucleated Red Blood Cell % 0 /100 WBC (0); Platelet Count 374 Thou/mm3 (140-440); RDW Standard Deviation 36.6 fL (36.4-46.3); Red Blood Count 4.65 Miln/mm3 (4.00-5.20); White Blood Count 20.4 Thou/mm3 (3.6-11.0)
[2025-05-03] MEDS: SOD POLYSTYRENE SULFON SUSP 15 GM/60 ML BTL PO (08:00)
[2025-05-03] MEDS: OCTREOTIDE ACET INJ 1,000 MCG in SODIUM CHLORIDE 0.9% 100 ML 5.1 MCG IV (08:03)
[2025-05-03] MEDS: CEFEPIME INJ 2 GM in SODIUM CHLORIDE 0.9% (Popper) 50 ML IV (08:03)
[2025-05-03 08:06] LABS: Albumin, Serum 4.2 gm/dL (3.5-5.0); BUN/Creatinine Ratio 16 Ratio (12-20); Blood Urea Nitrogen 49 mg/dL (9-23); Calcium 9.5 mg/dL (8.3-10.6); Calcium (Corrected) 9.5 mg/dL (8.5-10.1); Carbon Dioxide 18.2 mMol/L (20.0-31.0); Cardiac Risk Estimate 2.8 RATIO (3.7-5.6); Chloride 104 mMol/L (98-107); Cholesterol 205 mg/dL (132-200); Creatinine (Component) 3.0 mg/dL (0.6-1.3); Estimated Creatinine Clearance 20.3 mL/min (>60); HDL Cholesterol 73 mg/dL (40-60); LDL Cholesterol,Calculated 102 mg/dL (0-130); Magnesium 2.2 mg/dL (1.6-2.6); Phosphorous 4.4 mg/dL (2.4-5.1); Potassium 3.5 mMol/L (3.4-5.1); Triglycerides 148 mg/dL (30-150); eGFR 18 See Note
[2025-05-03 08:12] LABS: Anion Gap 20 (7-16); Osmolality,Calculated 334 (275-295); Sodium 142 mMol/L (136-145)
[2025-05-03 08:14] LABS: Glucose 775 mg/dL (74-106)
[2025-05-03] MEDS: SEVELAMER CARBONATE 800 MG TABLET 400 MG PO (08:16)
[2025-05-03 09:34] LABS: Reflex Lactate? Y
[2025-05-03 09:48] LABS: Lactic Acid, 3 HR 3.7 mMol/L (0.4-2.0)
[2025-05-03] MEDS: POT CHL ADDITIVE 20 MEQ in RINGERS LACTATED 1000 ML 1,000 ML 250 MEQ IV (10:26)
[2025-05-03 10:40] LABS: Albumin, Serum 4.3 gm/dL (3.5-5.0); Anion Gap 17 (7-16); BUN/Creatinine Ratio 16 Ratio (12-20); Blood Urea Nitrogen 39 mg/dL (9-23); Calcium 10.4 mg/dL (8.3-10.6); Calcium (Corrected) 10.4 mg/dL (8.5-10.1); Carbon Dioxide 23.4 mMol/L (20.0-31.0); Chloride 106 mMol/L (98-107); Creatinine (Component) 2.5 mg/dL (0.6-1.3); Estimated Creatinine Clearance 24.3 mL/min (>60); Magnesium 2.4 mg/dL (1.6-2.6); Osmolality,Calculated 329 (275-295); Phosphorous 3.9 mg/dL (2.4-5.1); Potassium 3.6 mMol/L (3.4-5.1); Sodium 146 mMol/L (136-145); eGFR 22 See Note
[2025-05-03 10:42] LABS: Glucose 630 mg/dL (74-106)
--- NOTE | 2025-05-03 11:02 | XR_ITS ---
Examination: Abdomen sonogram, Limited Date and time of exam: May 03, 2025, 1340 hours INDICATIONS: CT examination today gallbladder sludge versus stones Technique: Real-time richardson scale transabdominal sonographic images of the upper abdomen obtained. Findings: No gallstones identified Normal gallbladder wall Common bile duct 0.30 cm Pancreatic head 2.4 cm Liver 16.87 cm no liver lesions Normal hepatopetal portal venous Patent IVC IMPRESSION: Negative for cholelithiasis, negative for cholecystitis Mild to moderate hepatomegaly
--- NOTE | 2025-05-03 11:33 | ESPR_ITS ---
<Statement entered by Usman Banegas MD - 05/04/25 10:36> TOTAL CC TIME: 45 MIN I saw and evaluated the patient. I reviewed the resident?s note and agree with findings and plan as documented in the resident?s note. Upon my evaluation, this patient had a high probability of imminent or life- threatening deterioration due to metabolic acidosis due to DKA, pancreatitis in the setting of cocaine intoxication., which required my direct attention, intervention, and personal management. This time is exclusive of time spent on procedures, which are documented separately if performed. Continue copious IV fluids and frequent Basic chemistry follow-up. Replete electrolytes as appropriate. Abdominal exam reveals mild tenderness to percussion, pancreatitis seems to be mild. However she does have evidence of cholelithiasis and will require follow-up with the surgeon given the concurrent diagnosis of pancreatitis. No evidence of common bile duct dilation or choledocholithiasis or significant elevations in labs to suggest cholangitis or retained stone. <Statement entered by Markus Metcalf MD - 05/03/25 17:05> This patient is a 55-year-old female with history of type 1 diabetes,Hep c, history of recurrent pancreatitis, history of drug use methamphetamine use presented with abdominal pain, intractable nausea and vomiting and lightheadedness. Patient is alert and oriented x 3. Her abdominal was soft tender more on the epigastrium and right hypochondrium. Patient was found to have DKA and mild pancreatitis seen on CT abdomen pelvis. Patient met SIRS criteria on point of arrival due to DKA and pancreatitis. Patient had 1 episode of bloody emesis per nursing. Vitals showed hypotension improved post fluid resuscitation. Patient was started on DKA protocol and electrolytes were repleted as necessary. Initially patient received 2 L NS in the ED. Additional 1 L bolus with bicarb amp was given. CT abdomen showed that patient has tiny gallstones/gallbladder sludge therefore ultrasound abdomen was performed which showed no gallstones or sludge. Will continue with Protonix 40 IV twice daily and hemoglobin is currently stable therefore we will trend it. GI was consulted by night team. Initial pancreatitis scores were not calculated because of skewed results with DKA. Octreotide was discontinued. Lactic acid has been downtrending. Blood sugars have been improving. Currently sodium has been uptrending however we will wait until DKA resolved to change to IV fluids if sodium continues to trend up. Kidney functions have shown improvement. Due to 1 episode of emesis with blood and stable hemoglobin, DVT prophylaxis with heparin was added and will be stopped if hemoglobin drops or patient has another episode of emesis with blood. Will continue with DKA protocol. Echo and antibiotics were discontinued. All labs and orders were reviewed. I discussed and supervised with the application development intern physician who took care of this patient. I personally saw and examined the patient. I agree with most of the assessment and plan. Disclaimer: Despite multiple revisions, due to the dictation software being used, the document bellow may not be free of grammatical errors including phonetic/typographic errors. However, this does not deter from our commitment to providing health care in the patient's best interest in mind. Plan of care discussed with attending Physician Dr. Makenzie Metcalf MD PGY-3 Documentation for date of: 05/03/25 Subjective Subjective Interval history: 55-year-old female with a past medical history of poorly controlled type 1 insulin-dependent diabetes mellitus, recurrent diabetic ketoacidosis, hepatitis C, and substance use (including methamphetamine) presented to the ED on 05/03 with complaints of abdominal pain, intractable nausea, and two episodes of hematemesis. She has been experiencing significant fatigue and lightheadedness over the past 48 hours. Patient reports being compliant with her insulin regimen. She states that she attended a wedding 4 days ago, during which she had a large intake of alcohol. Patient?s last methamphetamine use was 5 days ago. Patient admitted to the ICU for DKA and acute pancreatitis. Patient was started on DKA protocol. Exam Vital Signs Temp Pulse Resp BP Pulse Ox O2 Del Method 98.0 F 115 H 20 102/57 L 90 L Room Air 05/03/25 09:00 05/03/25 10:00 05/03/25 10:00 05/03/25 10:05/03/25 10:05/03/25 09:00 Narrative Exam General: Awake and in no acute distress. Head: Normocephalic, atraumatic. Eyes: Pupils equally round and reactive to light. Anicteric. Mouth/Throat: Dried blood around mouth. No teeth. Heart: Regular rate and rhythm, no murmurs. No JVD. Lungs: Clear to auscultation with no wheezing or crackles. Non-labored respirations, symmetric chest rise, no use of accessory muscles. Abdomen: Tender to palpation R>L. No guarding or rebound tenderness. Neurologic: Alert and oriented x3, no gross neurological deficit, and patient able to move all 4 extremities. Extremities: No edema. Posterior tibial pulses are 2+ bilaterally. 2+ radial pulse bilaterally. No clubbing or cyanosis. No mottling. Skin: No rash. Psychiatric: Anxious. Objective Labs 05/03/25 07:37 05/03/25 19:26 Labs: Laboratory Results - last 24 hr 05/03/25 05/03/25 05/03/25 01:36 01:39 02:30 WBC 30.3 H RBC 4.93 Hgb 14.6 Hct 45.4 MCV 92 MCH 29.6 MCHC 32.2 RDW Std Deviation 43.3 Plt Count 441 H Neut % (Auto) 86 H Lymph % (Auto) 6 L Leslie % (Auto) 7 Eos % (Auto) 0 Baso % (Auto) 0 Neut # (Auto) 26.0 H Lymph # (Auto) 1.8 Leslie # (Auto) 2.2 H Eos # (Auto) 0.0 Baso # (Auto) 0.1 Immature Gran # (Auto) 0.31 H Absolute Nucleated RBC 0.00 Immature Gran % 1 H Nucleated RBC % 0 Puncture Site ABG pH ABG pCO2 ABG pO2 ABG HCO3 ABG O2 Saturation ABG Base Excess VBG pH 7.11 L VBG pCO2 31 L VBG pO2 50 VBG O2 Sat (Yaron) 79 L VBG Base Excess -19 L FiO2 Sodium 120 L Potassium 6.8 H* Chloride 77 L* Carbon Dioxide < 10.0 L* Anion Gap 33 H BUN 49 H Creatinine 4.1 H* Estim Creat Clear Calc 14.8 L eGFR 12 L* BUN/Creatinine Ratio 12 Glucose 1438 H* Calculated Osmolality 329 H Lactic Acid 5.8 H* Calcium 8.7 Corrected Calcium 8.7 Phosphorus 10.3 H Magnesium 2.5 Total Bilirubin 0.4 AST 25 ALT 74 H Alkaline Phosphatase 119 H Total Protein 7.3 Albumin 4.6 Globulin 2.7 Albumin/Globulin Ratio 1.7 Triglycerides Cholesterol LDL Cholesterol, Calc HDL Cholesterol Cholesterol/HDL Ratio Lipase 1146 H* Beta-Hydroxybutyrate/Acetoacetate > 6.4 H Procalcitonin 1.43 H Beta HCG, Quant 2 Ur Collection Type Urine Color Urine Clarity Urine pH Ur Specific Baker Urine Protein Urine Glucose (UA) Urine Ketones Urine Blood Urine Nitrite Urine Bilirubin Urine Urobilinogen (Auto) Ur Leukocyte Esterase Urine RBC Urine WBC Ur Squamous Epith Cells Ur Transition Epith Cell Ur Renal Epithelial Cell Calcium Carbonate Cryst Calcium Phosphate Cryst Calcium Oxalate Crystal Leucine Crystals Cystine Crystals Uric Acid Crystals Triple Phos Crystals Tyrosine Crystals Amorphous Crystals Urine Bacteria Cellular Casts Epithelial Casts Fatty Casts Hyaline Casts Granular Casts Waxy Casts Broad Casts RBC Casts Urine Mucus Urine Trichomonas Ur Yeast w Hyphae Urine Yeast (Budding) Urine Sperm Ur Oval Fat Bodies Ur Culture Indicated? Urine HCG, Qual Blood Type O Positive Antibody Screen NEGATIVE Blood Bank Wristband ID Yes 05/03/25 05/03/25 05/03/25 02:58 04:33 04:33 WBC RBC Hgb Hct MCV MCH MCHC RDW Std Deviation Plt Count Neut % (Auto) Lymph % (Auto) Leslie % (Auto) Eos % (Auto) Baso % (Auto) Neut # (Auto) Lymph # (Auto) Leslie # (Auto) Eos # (Auto) Baso # (Auto) Immature Gran # (Auto) Absolute Nucleated RBC Immature Gran % Nucleated RBC % Puncture Site Right Radial ABG pH 7.16 L* ABG pCO2 24 L ABG pO2 107 ABG HCO3 9 L* ABG O2 Saturation 98 ABG Base Excess -18 L VBG pH VBG pCO2 VBG pO2 VBG O2 Sat (Yaron) VBG Base Excess FiO2 21 Sodium Potassium Chloride Carbon Dioxide Anion Gap BUN Creatinine Estim Creat Clear Calc eGFR BUN/Creatinine Ratio Glucose Calculated Osmolality Lactic Acid Calcium Corrected Calcium Phosphorus Magnesium Total Bilirubin AST ALT Alkaline Phosphatase Total Protein Albumin Globulin Albumin/Globulin Ratio Triglycerides Cholesterol LDL Cholesterol, Calc HDL Cholesterol Cholesterol/HDL Ratio Lipase Beta-Hydroxybutyrate/Acetoacetate Procalcitonin Beta HCG, Quant Ur Collection Type Clean Catch Cancelled Urine Color Lt-Yellow Urine Clarity Urine pH Ur Specific Baker Urine Protein Urine Glucose (UA) Urine Ketones Urine Blood Urine Nitrite Urine Bilirubin Urine Urobilinogen (Auto) Ur Leukocyte Esterase Urine RBC Urine WBC Ur Squamous Epith Cells Ur Transition Epith Cell Ur Renal Epithelial Cell Calcium Carbonate Cryst Calcium Phosphate Cryst Calcium Oxalate Crystal Leucine Crystals Cystine Crystals Uric Acid Crystals Triple Phos Crystals Tyrosine Crystals Amorphous Crystals Urine Bacteria Cellular Casts Epithelial Casts Fatty Casts Hyaline Casts Granular Casts Waxy Casts Broad Casts RBC Casts Urine Mucus Urine Trichomonas Ur Yeast w Hyphae Urine Yeast (Budding) Urine Sperm Ur Oval Fat Bodies Ur Culture Indicated? Urine HCG, Qual Blood Type Antibody Screen Blood Bank Wristband ID 05/03/25 05/03/25 05/03/25 04:33 04:33 04:33 WBC RBC Hgb Hct MCV MCH MCHC RDW Std Deviation Plt Count Neut % (Auto) Lymph % (Auto) Leslie % (Auto) Eos % (Auto) Baso % (Auto) Neut # (Auto) Lymph # (Auto) Leslie # (Auto) Eos # (Auto) Baso # (Auto) Immature Gran # (Auto) Absolute Nucleated RBC Immature Gran % Nucleated RBC % Puncture Site ABG pH ABG pCO2 ABG pO2 ABG HCO3 ABG O2 Saturation ABG Base Excess VBG pH VBG pCO2 VBG pO2 VBG O2 Sat (Yaron) VBG Base Excess FiO2 Sodium Potassium Chloride Carbon Dioxide Anion Gap BUN Creatinine Estim Creat Clear Calc eGFR BUN/Creatinine Ratio Glucose Calculated Osmolality Lactic Acid Calcium Corrected Calcium Phosphorus Magnesium Total Bilirubin AST ALT Alkaline Phosphatase Total Protein Albumin Globulin Albumin/Globulin Ratio Triglycerides Cholesterol LDL Cholesterol, Calc HDL Cholesterol Cholesterol/HDL Ratio Lipase Beta-Hydroxybutyrate/Acetoacetate Procalcitonin Beta HCG, Quant Ur Collection Type Urine Color Cancelled Urine Clarity Turbid A Cancelled Urine pH 5.5 Cancelled Ur Specific Baker 1.021 Urine Protein Urine Glucose (UA) Urine Ketones Urine Blood Urine Nitrite Urine Bilirubin Urine Urobilinogen (Auto) Ur Leukocyte Esterase Urine RBC Urine WBC Ur Squamous Epith Cells Ur Transition Epith Cell Ur Renal Epithelial Cell Calcium Carbonate Cryst Calcium Phosphate Cryst Calcium Oxalate Crystal Leucine Crystals Cystine Crystals Uric Acid Crystals Triple Phos Crystals Tyrosine Crystals Amorphous Crystals Urine Bacteria Cellular Casts Epithelial Casts Fatty Casts Hyaline Casts Granular Casts Waxy Casts Broad Casts RBC Casts Urine Mucus Urine Trichomonas Ur Yeast w Hyphae Urine Yeast (Budding) Urine Sperm Ur Oval Fat Bodies Ur Culture Indicated? Urine HCG, Qual Blood Type Antibody Screen Blood Bank Wristband ID 05/03/25 05/03/25 05/03/25 04:33 04:33 04:33 WBC RBC Hgb Hct MCV MCH MCHC RDW Std Deviation Plt Count Neut % (Auto) Lymph % (Auto) Leslie % (Auto) Eos % (Auto) Baso % (Auto) Neut # (Auto) Lymph # (Auto) Leslie # (Auto) Eos # (Auto) Baso # (Auto) Immature Gran # (Auto) Absolute Nucleated RBC Immature Gran % Nucleated RBC % Puncture Site ABG pH ABG pCO2 ABG pO2 ABG HCO3 ABG O2 Saturation ABG Base Excess VBG pH VBG pCO2 VBG pO2 VBG O2 Sat (Yaron) VBG Base Excess FiO2 Sodium Potassium Chloride Carbon Dioxide Anion Gap BUN Creatinine Estim Creat Clear Calc eGFR BUN/Creatinine Ratio Glucose Calculated Osmolality Lactic Acid Calcium Corrected Calcium Phosphorus Magnesium Total Bilirubin AST ALT Alkaline Phosphatase Total Protein Albumin Globulin Albumin/Globulin Ratio Triglycerides Cholesterol LDL Cholesterol, Calc HDL Cholesterol Cholesterol/HDL Ratio Lipase Beta-Hydroxybutyrate/Acetoacetate Procalcitonin Beta HCG, Quant Ur Collection Type Urine Color Urine Clarity Urine pH Ur Specific Baker Cancelled Urine Protein Trace Cancelled Urine Glucose (UA) 4+ A Cancelled Urine Ketones 1+ A Urine Blood Urine Nitrite Urine Bilirubin Urine Urobilinogen (Auto) Ur Leukocyte Esterase Urine RBC Urine WBC Ur Squamous Epith Cells Ur Transition Epith Cell Ur Renal Epithelial Cell Calcium Carbonate Cryst Calcium Phosphate Cryst Calcium Oxalate Crystal Leucine Crystals Cystine Crystals Uric Acid Crystals Triple Phos Crystals Tyrosine Crystals Amorphous Crystals Urine Bacteria Cellular Casts Epithelial Casts Fatty Casts Hyaline Casts Granular Casts Waxy Casts Broad Casts RBC Casts Urine Mucus Urine Trichomonas Ur Yeast w Hyphae Urine Yeast (Budding) Urine Sperm Ur Oval Fat Bodies Ur Culture Indicated? Urine HCG, Qual Blood Type Antibody Screen Blood Bank Wristband ID 05/03/25 05/03/25 05/03/25 04:33 04:33 04:33 WBC RBC Hgb Hct MCV MCH MCHC RDW Std Deviation Plt Count Neut % (Auto) Lymph % (Auto) Leslie % (Auto) Eos % (Auto) Baso % (Auto) Neut # (Auto) Lymph # (Auto) Leslie # (Auto) Eos # (Auto) Baso # (Auto) Immature Gran # (Auto) Absolute Nucleated RBC Immature Gran % Nucleated RBC % Puncture Site ABG pH ABG pCO2 ABG pO2 ABG HCO3 ABG O2 Saturation ABG Base Excess VBG pH VBG pCO2 VBG pO2 VBG O2 Sat (Yaron) VBG Base Excess FiO2 Sodium Potassium Chloride Carbon Dioxide Anion Gap BUN Creatinine Estim Creat Clear Calc eGFR BUN/Creatinine Ratio Glucose Calculated Osmolality Lactic Acid Calcium Corrected Calcium Phosphorus Magnesium Total Bilirubin AST ALT Alkaline Phosphatase Total Protein Albumin Globulin Albumin/Globulin Ratio Triglycerides Cholesterol LDL Cholesterol, Calc HDL Cholesterol Cholesterol/HDL Ratio Lipase Beta-Hydroxybutyrate/Acetoacetate Procalcitonin Beta HCG, Quant Ur Collection Type Urine Color Urine Clarity Urine pH Ur Specific Baker Urine Protein Urine Glucose (UA) Urine Ketones Cancelled Urine Blood Negative Cancelled Urine Nitrite Negative Cancelled Urine Bilirubin Negative Urine Urobilinogen (Auto) Ur Leukocyte Esterase Urine RBC Urine WBC Ur Squamous Epith Cells Ur Transition Epith Cell Ur Renal Epithelial Cell Calcium Carbonate Cryst Calcium Phosphate Cryst Calcium Oxalate Crystal Leucine Crystals Cystine Crystals Uric Acid Crystals Triple Phos Crystals Tyrosine Crystals Amorphous Crystals Urine Bacteria Cellular Casts Epithelial Casts Fatty Casts Hyaline Casts Granular Casts Waxy Casts Broad Casts RBC Casts Urine Mucus Urine Trichomonas Ur Yeast w Hyphae Urine Yeast (Budding) Urine Sperm Ur Oval Fat Bodies Ur Culture Indicated? Urine HCG, Qual Blood Type Antibody Screen Blood Bank Wristband ID 05/03/25 05/03/25 05/03/25 04:33 04:33 04:33 WBC RBC Hgb Hct MCV MCH MCHC RDW Std Deviation Plt Count Neut % (Auto) Lymph % (Auto) Leslie % (Auto) Eos % (Auto) Baso % (Auto) Neut # (Auto) Lymph # (Auto) Leslie # (Auto) Eos # (Auto) Baso # (Auto) Immature Gran # (Auto) Absolute Nucleated RBC Immature Gran % Nucleated RBC % Puncture Site ABG pH ABG pCO2 ABG pO2 ABG HCO3 ABG O2 Saturation ABG Base Excess VBG pH VBG pCO2 VBG pO2 VBG O2 Sat (Yaron) VBG Base Excess FiO2 Sodium Potassium Chloride Carbon Dioxide Anion Gap BUN Creatinine Estim Creat Clear Calc eGFR BUN/Creatinine Ratio Glucose Calculated Osmolality Lactic Acid Calcium Corrected Calcium Phosphorus Magnesium Total Bilirubin AST ALT Alkaline Phosphatase Total Protein Albumin Globulin Albumin/Globulin Ratio Triglycerides Cholesterol LDL Cholesterol, Calc HDL Cholesterol Cholesterol/HDL Ratio Lipase Beta-Hydroxybutyrate/Acetoacetate Procalcitonin Beta HCG, Quant Ur Collection Type Urine Color Urine Clarity Urine pH Ur Specific Baker Urine Protein Urine Glucose (UA) Urine Ketones Urine Blood Urine Nitrite Urine Bilirubin Cancelled Urine Urobilinogen (Auto) Negative Cancelled Ur Leukocyte Esterase Negative Cancelled Urine RBC 4 H Urine WBC Ur Squamous Epith Cells Ur Transition Epith Cell Ur Renal Epithelial Cell Calcium Carbonate Cryst Calcium Phosphate Cryst Calcium Oxalate Crystal Leucine Crystals Cystine Crystals Uric Acid Crystals Triple Phos Crystals Tyrosine Crystals Amorphous Crystals Urine Bacteria Cellular Casts Epithelial Casts Fatty Casts Hyaline Casts Granular Casts Waxy Casts Broad Casts RBC Casts Urine Mucus Urine Trichomonas Ur Yeast w Hyphae Urine Yeast (Budding) Urine Sperm Ur Oval Fat Bodies Ur Culture Indicated? Urine HCG, Qual Blood Type Antibody Screen Blood Bank Wristband ID 05/03/25 05/03/25 05/03/25 04:33 04:33 04:33 WBC RBC Hgb Hct MCV MCH MCHC RDW Std Deviation Plt Count Neut % (Auto) Lymph % (Auto) Leslie % (Auto) Eos % (Auto) Baso % (Auto) Neut # (Auto) Lymph # (Auto) Leslie # (Auto) Eos # (Auto) Baso # (Auto) Immature Gran # (Auto) Absolute Nucleated RBC Immature Gran % Nucleated RBC % Puncture Site ABG pH ABG pCO2 ABG pO2 ABG HCO3 ABG O2 Saturation ABG Base Excess VBG pH VBG pCO2 VBG pO2 VBG O2 Sat (Yaron) VBG Base Excess FiO2 Sodium Potassium Chloride Carbon Dioxide Anion Gap BUN Creatinine Estim Creat Clear Calc eGFR BUN/Creatinine Ratio Glucose Calculated Osmolality Lactic Acid Calcium Corrected Calcium Phosphorus Magnesium Total Bilirubin AST ALT Alkaline Phosphatase Total Protein Albumin Globulin Albumin/Globulin Ratio Triglycerides Cholesterol LDL Cholesterol, Calc HDL Cholesterol Cholesterol/HDL Ratio Lipase Beta-Hydroxybutyrate/Acetoacetate Procalcitonin Beta HCG, Quant Ur Collection Type Urine Color Urine Clarity Urine pH Ur Specific Baker Urine Protein Urine Glucose (UA) Urine Ketones Urine Blood Urine Nitrite Urine Bilirubin Urine Urobilinogen (Auto) Ur Leukocyte Esterase Urine RBC Cancelled Urine WBC 4 Cancelled Ur Squamous Epith Cells 5 Cancelled Ur Transition Epith Cell Cancelled Ur Renal Epithelial Cell Cancelled Calcium Carbonate Cryst Cancelled Calcium Phosphate Cryst Cancelled Calcium Oxalate Crystal Cancelled Leucine Crystals Cancelled Cystine Crystals Cancelled Uric Acid Crystals Cancelled Triple Phos Crystals Cancelled Tyrosine Crystals Cancelled Amorphous Crystals Cancelled Urine Bacteria None Cellular Casts Epithelial Casts Fatty Casts Hyaline Casts Granular Casts Waxy Casts Broad Casts RBC Casts Urine Mucus Urine Trichomonas Ur Yeast w Hyphae Urine Yeast (Budding) Urine Sperm Ur Oval Fat Bodies Ur Culture Indicated? Urine HCG, Qual Blood Type Antibody Screen Blood Bank Wristband ID 05/03/25 05/03/25 05/03/25 04:33 04:33 06:28 WBC RBC Hgb Hct MCV MCH MCHC RDW Std Deviation Plt Count Neut % (Auto) Lymph % (Auto) Leslie % (Auto) Eos % (Auto) Baso % (Auto) Neut # (Auto) Lymph # (Auto) Leslie # (Auto) Eos # (Auto) Baso # (Auto) Immature Gran # (Auto) Absolute Nucleated RBC Immature Gran % Nucleated RBC % Puncture Site ABG pH ABG pCO2 ABG pO2 ABG HCO3 ABG O2 Saturation ABG Base Excess VBG pH VBG pCO2 VBG pO2 VBG O2 Sat (Yaron) VBG Base Excess FiO2 Sodium Potassium Chloride Carbon Dioxide Anion Gap BUN Creatinine Estim Creat Clear Calc eGFR BUN/Creatinine Ratio Glucose Calculated Osmolality Lactic Acid 6.6 H* Calcium Corrected Calcium Phosphorus Magnesium Total Bilirubin AST ALT Alkaline Phosphatase Total Protein Albumin Globulin Albumin/Globulin Ratio Triglycerides Cholesterol LDL Cholesterol, Calc HDL Cholesterol Cholesterol/HDL Ratio Lipase Beta-Hydroxybutyrate/Acetoacetate Procalcitonin Beta HCG, Quant Ur Collection Type Urine Color Urine Clarity Urine pH Ur Specific Baker Urine Protein Urine Glucose (UA) Urine Ketones Urine Blood Urine Nitrite Urine Bilirubin Urine Urobilinogen (Auto) Ur Leukocyte Esterase Urine RBC Urine WBC Ur Squamous Epith Cells Ur Transition Epith Cell Ur Renal Epithelial Cell Calcium Carbonate Cryst Calcium Phosphate Cryst Calcium Oxalate Crystal Leucine Crystals Cystine Crystals Uric Acid Crystals Triple Phos Crystals Tyrosine Crystals Amorphous Crystals Urine Bacteria Cancelled Cellular Casts Cancelled Epithelial Casts Cancelled Fatty Casts Cancelled Hyaline Casts < 1 Cancelled Granular Casts Cancelled Waxy Casts Cancelled Broad Casts Cancelled RBC Casts Cancelled Urine Mucus Cancelled Urine Trichomonas Cancelled Ur Yeast w Hyphae Cancelled Urine Yeast (Budding) Cancelled Urine Sperm Cancelled Ur Oval Fat Bodies Cancelled Ur Culture Indicated? Cancelled Urine HCG, Qual Negative Blood Type Antibody Screen Blood Bank Wristband ID 05/03/25 05/03/25 07:37 09:29 WBC 20.4 H D RBC 4.65 Hgb 13.5 Hct 38.2 MCV 82 MCH 29.0 MCHC 35.3 RDW Std Deviation 36.6 Plt Count 374 D Neut % (Auto) 88 H Lymph % (Auto) 4 L Leslie % (Auto) 8 Eos % (Auto) 0 Baso % (Auto) 0 Neut # (Auto) 17.9 H Lymph # (Auto) 0.7 L Leslie # (Auto) 1.5 H Eos # (Auto) 0.0 Baso # (Auto) 0.0 Immature Gran # (Auto) 0.13 H Absolute Nucleated RBC 0.00 Immature Gran % 1 H Nucleated RBC % 0 Puncture Site ABG pH ABG pCO2 ABG pO2 ABG HCO3 ABG O2 Saturation ABG Base Excess VBG pH VBG pCO2 VBG pO2 VBG O2 Sat (Yaron) VBG Base Excess FiO2 Sodium 142 D 146 H Potassium 3.5 D 3.6 Chloride 104 106 Carbon Dioxide 18.2 L 23.4 Anion Gap 20 H 17 H BUN 49 H 39 H Creatinine 3.0 H D 2.5 H D Estim Creat Clear Calc 20.3 L 24.3 L eGFR 18 L 22 L BUN/Creatinine Ratio 16 16 Glucose 775 H* D 630 H* D Calculated Osmolality 334 H 329 H Lactic Acid 3.7 H Calcium 9.5 10.4 Corrected Calcium 9.5 10.4 H Phosphorus 4.4 3.9 Magnesium 2.2 2.4 Total Bilirubin AST ALT Alkaline Phosphatase Total Protein Albumin 4.2 4.3 Globulin Albumin/Globulin Ratio Triglycerides 148 Cholesterol 205 H LDL Cholesterol, Calc 102 HDL Cholesterol 73 H Cholesterol/HDL Ratio 2.8 L Lipase Beta-Hydroxybutyrate/Acetoacetate Procalcitonin Beta HCG, Quant Ur Collection Type Urine Color Urine Clarity Urine pH Ur Specific Baker Urine Protein Urine Glucose (UA) Urine Ketones Urine Blood Urine Nitrite Urine Bilirubin Urine Urobilinogen (Auto) Ur Leukocyte Esterase Urine RBC Urine WBC Ur Squamous Epith Cells Ur Transition Epith Cell Ur Renal Epithelial Cell Calcium Carbonate Cryst Calcium Phosphate Cryst Calcium Oxalate Crystal Leucine Crystals Cystine Crystals Uric Acid Crystals Triple Phos Crystals Tyrosine Crystals Amorphous Crystals Urine Bacteria Cellular Casts Epithelial Casts Fatty Casts Hyaline Casts Granular Casts Waxy Casts Broad Casts RBC Casts Urine Mucus Urine Trichomonas Ur Yeast w Hyphae Urine Yeast (Budding) Urine Sperm Ur Oval Fat Bodies Ur Culture Indicated? Urine HCG, Qual Blood Type Cancelled Antibody Screen Cancelled Blood Bank Wristband ID Cancelled ABG Interpretation ABG results: 05/03/25 05/03/25 01:39 02:58 ABG pH 7.16 L* ABG pCO2 24 L ABG pO2 107 ABG HCO3 9 L* ABG O2 Saturation 98 ABG Base Excess -18 L VBG pH 7.11 L VBG pCO2 31 L VBG pO2 50 VBG Base Excess -19 L Quality Measures Quality Measures none Assessment & Plan Assessment Current Active Medications: Generic Name Dose Route Start Last Admin Trade Name Freq PRN Reason Stop Dose Admin Acetaminophen 650 mg 05/03/25 06:11 Acetaminophen 325 Mg Tablet PO 06/02/25 06:14 Q4H PRN fever >99.9 Dextrose 25 ml 05/03/25 02:31 Dextrose 50%-Water Inj 50 Ml Syringe IV [id number] PRN Blood Sugar - Low Heparin Sodium (Porcine) 5,000 unit 05/03/25 21:00 Heparin Sod Inj 5000 Unit/Ml Vial SC 05/17/25 20:59 Q12HR CHUY Hydromorphone HCl 0.5 mg 05/03/25 06:10 Hydromorphone Inj 2 Mg/Ml Vial IVP 05/08/25 06:09 Q4H PRN pain 5-10 Potassium Chloride 10 meq in 100 mls @ 100 mls/hr 05/03/25 02:31 Kcl Ivpb IV 06/02/25 02:30 .Q1H PRN IF POTASSIUM LESS THAN 3.3 Magnesium Sulfate 2 gm in 50 mls @ 25 mls/hr 05/03/25 02:31 Magnesium Sulfate Ivpb IV 06/02/25 02:30 .Q2H PRN PER DKA PROTOCOL Insulin Human Regular 100 unit 100 mls @ 6.759 mls/hr 05/03/25 02:31 05/03/25 11:00 / IV Miscellaneous Supplies IV 06/02/25 02:30 0.1 unit/kg/hr .[id number] PRN 6.759 mls/hr PER PROTOCOL Titration Protocol 0.1 UNIT/KG/HR Dextrose/Lactated Ringer's 1,000 mls @ 250 mls/hr 05/03/25 02:31 D5-Lr IV 06/02/25 02:30 .Q4H PRN PER PROTOCOL Lactated Ringer's 1,000 mls @ 250 mls/hr 05/03/25 02:31 Lactated Ringers IV 05/04/25 02:30 .Q4H PRN PER PROTOCOL Potassium Chloride 20 meq/ 1,010 mls @ 250 mls/hr 05/03/25 02:31 05/03/25 10:26 Lactated Ringer's IV 06/02/25 02:30 250 mls/hr .Q4H3M PRN Administration K LEVEL 3.3 TO 5.3mM/L Potassium Chloride 40 meq/ 1,020 mls @ 250 mls/hr 05/03/25 02:31 Lactated Ringer's IV 06/02/25 02:30 .Q4H5M PRN K LEVEL < 3.3 mM/L Potassium Chloride 40 meq/ 1,020 mls @ 250 mls/hr 05/03/25 02:31 Dextrose/Lactated Ringer's IV 06/02/25 02:30 .Q4H5M PRN K LEVEL < 3.3mM/L Potassium Cl/Dextrose/Lact Ringer's 20 meq in 1,000 mls @ 250 mls/hr 05/03/25 02:31 Kcl 20 Meq/L In D5-Lr IV .Q4H PRN K LEVEL 3.3 TO 5.3 mM/L Potassium Chloride 10 meq in 100 mls @ 50 mls/hr 05/03/25 02:31 Kcl Ivpb IV 06/02/25 02:30 PRN PRN K LEVEL 3.3 to 5.3 & BG > 200 Potassium Phosphate 15 mmol in 250 mls @ 62.5 mls/hr 05/03/25 02:31 Pot Phos 15 Mmol In Ns 250 Ml IV 06/02/25 02:30 PRN PRN Phosphate <= 1mg/dL Sodium Phosphate 15 mmol/ 255 mls @ 62.5 mls/hr 05/03/25 02:31 Sodium Chloride IV 06/02/25 02:30 .Q4H5M PRN Phosphate <= 1mg/dL and K> than 5.3 Cefepime HCl 2 gm/ Sodium 50 mls @ 100 mls/hr 05/03/25 21:00 Chloride IV 05/10/25 20:59 Q12HR CHUY Pantoprazole Sodium 40 mg 05/03/25 21:00 Pantoprazole Inj 40 Mg Vial IVP 06/02/25 20:59 BID CHUY Sodium Bicarbonate 50 ml 05/03/25 02:31 Sodium Bicarb Inj 8.4% Syr 50 Ml Syringe IV 06/02/25 02:30 Q4HR PRN For ph <= to 7.0 Sodium Chloride 3 ml 05/03/25 02:41 05/03/25 02:55 Sodium Chloride Rt Sarai 0.9% 3 Ml Nebu INH 06/02/25 02:40 3 ml PRN PRN Administration SOLN Plan 55-year-old female with poorly controlled type 1 diabetes, recurrent DKA, hepatitis C, and methamphetamine use presented with acute abdominal pain, intractable nausea, and hematemesis following recent alcohol intake, admitted to ICU for DKA and acute pancreatitis. Neurology #no active problems Cardiovascular #SIRS present on arrival due to pancreatitis and DKA Diagnostic Test: - Met 2/4 SIRS criteria: T 97.7F, HR 66, RR 26, WBC 30.3. - Lactic acid on admission: 5.8. - BP 65/4. MAP 50. - Cr 4.1. - Source: acute pancreatitis and DKA. - Blood cultures pending. - UA: glucose 4+, ketones 1+, WBC 4, RBC 4. - CXR: mild vascular congestion. - CTAP: edematous appearing pancreas, fatty infiltration throughout liver with no focal liver or splenic lesions. Treatment Review (completed): - IV fluids: 30 mL/kg was given in the ED. Received 2L NS in ED. Gave additional 1L LR in the ICU. - Cefepime was initially started in the ED; however, it has since been discontinued as the patient shows no signs of active infection. Leukocytosis likely reactive from DKA and acute pancreatitis. Patient remains afebrile. Treatment Plan: - Trend lactic acid until downtrend. - CBC/BMP daily or more frequent if unstable. - Monitor organ dysfunction resolution or progression. - Continue with DKA protocol. Respiratory #no active problems GI and F/E/N #Acute pancreatitis DDx: gallstones vs alcohol vs infection vs hypertriglyceridemia vs drugs. Diagnostic Test: - Liver ultrasound: negative for cholelithiasis, negative for cholecystitis - Triglycerides 148. - Lipase 1146. - CT abdomen/pelvis: edematous appearing pancreas. - Davenport score: not calculated as scoring system confounded by DKA. - History of recent heavy alcohol intake. Treatment Plan: - Hydromorphone 0.5mg Q4H PRN pain. - Ondansetron 4mg IV PRN nausea. - NPO. No Hx of PUD or varices. - Protonix 40mg BID IV daily for GI PPX. - On DKA protocol, anticipate improvement with IV fluids. - Begin diet when nausea and vomiting as improved. #Acute hematemesis DDx: gastric and/or duodenal ulcers vs esophagitis vs gastritis History of Aleve use for back pain. Diagnostic Test: - Hemoglobin 14.6. Treatment Plan: - NPO - IV Pantoprazole 40mg BID. - Transfuse if Hgb < 7. - Monitor vital signs. - GI consulted, appreciate recommendations. - Started heparin for DVT PPX as patient reported 1-2 episodes of hematemesis but has stable hemoglobin. Will stop heparin if hemoglobin drops or patient has another episode of emesis with blood History of hep C Diagnostic test: - Hepatitis C antibody: reactive. Treatment Plan: - Per patient, she has been treated in the past but does not remember name of treatment. - Chronic hepatitis panel ordered by GI team. Renal #Anion gap metabolic acidosis DDx: lactic acidosis, DKA Diagnostic Test: - Admission labs show: - Blood glucose 1438. - Lactic acid 5.8. - Anion gap 33. - Sodium 120. - Potassium 6.8. - Bicarb <10. - Phosphorus 10.3. - ABG pH 7.16 and pCO2 24. Treatment Review (completed): - Sevelamer 400mg x1 for hyperphosphatemia. - 3L IVF bolus. Treatment Plan: - On DKA protocol, anticipate improvement with IV fluids. - Bicarb ampules as needed. - Blood glucose checks Q1H. - Lactic acid checks Q4H. Repeat until anion gap is closed x2. - Renal panel Q4H. #Acute kidney injury DDx: dehydration vs hypotension Diagnostic Test: - Cr 4.1 (baseline 0.5- 0.7) - eGFR 12 - BUN 49 Treatment Plan: - Insulin drip per DKA protocol. - Daily renal panel to trend BUN, Cr, and electrolytes. - Avoid nephrotoxins - Renally dose meds as appropriate. - Strict I&Os, monitor urine output closely. - Monitor for signs of volume overload or uremic symptoms. Heme #Leukocytosis Likely in the setting of pancreatitis and DKA. Diagnostic Test: - Initial labs: WBC 20.3 with neutrophil predominance. Treatment Plan: - Anticipate improvement with IVF and insulin. Endo #Diabetic ketoacidosis #Insulin dependent type 2 diabetes Diagnostic Test: - ABG: pH 7.16, CO2 24. - Bicarb on chem panel <10. - Na 120, Cl 77, K 6.8. - Glucose 1438. - Lactic acid 5.8. - Beta-Hydroxybutyrate > 6.4. - Hemoglobin A1c pending. Treatment Review (completed): - 3L IV fluids, along with DKA protocol. - Bicarb amp. Treatment Plan: - Insulin gtt per DKA protocol. - LR/D5 IV fluids. - Lactic acid level Q4H until anion gap is closed x2. - Renal panel Q4H. - Replete electrolytes as needed. - Hypoglycemia protocol in place. ID #no active problems Health Maintenance: DVT prophylaxis: heparin 5000 SQ GI prophylaxis: Protonix 40mg BID Diet: NPO Perez: none Lines: Peripherals Drips: none Vent: no on MV CODE STATUS: FULL CODE Patient discussed with my senior resident Dr. Metcalf and attending, Dr. Banegas. Kings Duran, DO Internal Medicine, PGY 1
[2025-05-03 13:02] LABS: Base Excess, Venous 2 (-3-3); O2 Saturation, Venous 74 % (96-97); PCO2, Venous 50 mmHg (36-56); PO2, Venous 39 mmHg (15-58); pH, Venous 7.36 (7.33-7.66)
[2025-05-03 13:25] LABS: Lactate (Lactic Acid) 4.0 mMol/L (0.4-2.0)
[2025-05-03 13:35] LABS: Albumin, Serum 4.1 gm/dL (3.5-5.0); Anion Gap 17 (7-16); BUN/Creatinine Ratio 25 Ratio (12-20); Blood Urea Nitrogen 53 mg/dL (9-23); Calcium 10.0 mg/dL (8.3-10.6); Calcium (Corrected) 10.0 mg/dL (8.5-10.1); Carbon Dioxide 24.6 mMol/L (20.0-31.0); Chloride 110 mMol/L (98-107); Creatinine (Component) 2.1 mg/dL (0.6-1.3); Estimated Creatinine Clearance 28.9 mL/min (>60); Magnesium 2.2 mg/dL (1.6-2.6); Osmolality,Calculated 333 (275-295); Phosphorous 3.5 mg/dL (2.4-5.1); Potassium 3.7 mMol/L (3.4-5.1); Sodium 152 mMol/L (136-145); eGFR 27 See Note
[2025-05-03 13:36] LABS: Glucose 408 mg/dL (74-106)
[2025-05-03 14:11] LABS: Hepatitis B Core Antibody IgM Non Reactive (Non React); Hepatitis B Surface Ab NonReact(Not Immune) (Immune); Hepatitis B Surface Antigen Non Reactive (Non React); Hepatitis C Antibody Reactive (Non React)
[2025-05-03] MEDS: POT CHL ADDITIVE 20 MEQ in DEXTROSE 5%-LACTATED RINGERS 990 ML 250 MEQ IV ×2 (14:17→18:43)
[2025-05-03 15:45] LABS: Amphetamine/Methamp Scrn,U Negative (Negative); Barbiturate Screen,Urine Negative (Negative); Benzodiazepines Screen,Urine Negative (Negative); Benzoylecgonine Screen, Ur Negative (Negative); Fentanyl Screen,Urine Negative (Negative); Opiate Screen,Urine Negative (Negative); THC Screen,Urine Negative (Negative)
[2025-05-03 16:14] LABS: Reflex Lactate? Y
--- NOTE | 2025-05-03 18:18 | ESCONSULT_ITS ---
HPI Data of Consult Requesting Physician: Sherrie Yu MD Admitting Provider: Sherrie Yu MD Attending Provider: Sherrie Yu MD Primary Care Provider: Physician No Primary/Family Consult Narrative Reason for consult: Acute Pancreatitis History of present illness: HPI:A 55-year-old female patient with past medical history of insulin-dependent diabetes mellitus, recurrent DKA, methamphetamine use disorder, reportedly hepatitis C presented to the ED after she started to experience multiple episodes of hematemesis. She reported that she had 6 episodes of hematemesis and she estimated blood loss to be almost 1 cup. She also reported persistent vomiting and pain at the epigastric area which made her unable to eat or keep anything down. She denied any history of similar episodes in the past, denied any bleeding per rectum, denied any weight loss or diarrhea. Denied any mouth ulcers. However on questioning she reported that she was binge drinking 3 to 4 days ago after she has stopped drinking alcohol for long period. She reported that she has history of hepatitis C in which she was on treatment for few months however she does not remember the name of the medication. However she has not followed up since then. Patient denied any history of jaundice or liver cirrhosis. Patient was found to have SIRS response with tachycardia of 102, respiratory rate of 26, blood pressure of 70/40, CBC showed WBC of 20.3, mild thrombocytosis of 441, CMP showed glucose level of 1438 and potassium level of 6.8 anion gap was 33 bicarb less than 10 and ABG showed pH of 7.16 and CO2 of 24. Beta- hydroxybutyrate was 6.4 and lactic acid was 5.8 serum creatinine was found to be 4.1 and BUN of 49. Her baseline range between 0.5-0.8. Lipase level test was done by the ED and the patient was found to have lipase level of 1146 and Pro- [place] of 1.43, CT scan showed suspicious edema of the pancreas indicating the possibility of pancreatitis. Patient was admitted to the ICU for DKA management. In the ICU patient was started on DKA protocol, IV fluids, Protonix, and octreotide gtt. PMH:Denied any similar symptoms in the past, as above Social hx: Alcohol: Has been sober for few months before presentation, Tobacco: Denied Illicit drugs: Meth abuse, last dose was 5 days ago Allergies: Codeine cc:: cc: Sherrie Yu MD Exam Vital Signs Temp Pulse Resp BP Pulse Ox O2 Del Method 99.0 F 113 H 17 131/70 H 99 Room Air 05/03/25 12:00 05/03/25 18:00 05/03/25 18:00 05/03/25 18:00 05/03/25 18:00 05/03/25 17:00 Narrative Exam GEN: AOx3, able to speak full sentences HEENT: NC/AC, PERRLA, oral mucosa dry with poor dentition, neck supple CVS: RRR, systolic murmur in the pulmonary area -S2 present, no JVD RESP: CTAB GI: soft,non distended, diffuse tenderness however no rigidity or skin rash. MSK: able to move all 4 limbs, trace lower extremity edema SKIN: warm and dry WATER [employer]EROB[employer] INSTRUCTOR: CN II-XII and Sensation grossly intact. Results Labs 05/03/25 07:37 05/03/25 19:26 Labs: Short CBC 05/03/25 05/03/25 Range/Units 01:39 07:37 WBC 30.3 H 20.4 H D (3.6-11.0) Thou/mm3 Hgb 14.6 13.5 (12.0-16.0) g/dL Hct 45.4 38.2 (36.0-46.0) % Plt Count 441 H 374 D (140-440) Thou/mm3 BMP 05/03/25 05/03/25 05/03/25 01:39 07:37 09:29 Sodium 120 L 142 D 146 H Potassium 6.8 H* 3.5 D 3.6 Chloride 77 L* 104 106 Carbon Dioxide < 10.0 L* 18.2 L 23.4 BUN 49 H 49 H 39 H Creatinine 4.1 H* 3.0 H D 2.5 H D Glucose 1438 H* 775 H* D 630 H* D Calcium 8.7 9.5 10.4 05/03/25 12:54 Sodium 152 H Potassium 3.7 Chloride 110 H Carbon Dioxide 24.6 BUN 53 H Creatinine 2.1 H Glucose 408 H* D Calcium 10.0 Liver Function 05/03/25 05/03/25 05/03/25 Range/Units 01:39 07:37 09:29 Total Bilirubin 0.4 (0.3-1.2) mg/dL AST 25 (0-34) U/L ALT 74 H (10-49) U/L Alkaline Phosphatase 119 H (46-116) U/L Albumin 4.6 4.2 4.3 (3.5-5.0) gm/dL 05/03/25 Range/Units 12:54 Total Bilirubin (0.3-1.2) mg/dL AST (0-34) U/L ALT (10-49) U/L Alkaline Phosphatase (46-116) U/L Albumin 4.1 (3.5-5.0) gm/dL Urine 05/03/25 05/03/25 05/03/25 Range/Units 04:33 04:33 04:33 Urine Color Lt-Yellow Cancelled (Lt Yel-Yel) Urine Clarity Turbid A Cancelled (Clear/Hazy) Urine pH 5.5 (5.0-7.0) Ur Specific [place] (1.001-1.035) Urine Protein (Neg - Trace) Urine Glucose (UA) (Negative) 05/03/25 05/03/25 05/03/25 Range/Units 04:33 04:33 04:33 Urine Color (Lt Yel-Yel) Urine Clarity (Clear/Hazy) Urine pH Cancelled (5.0-7.0) Ur Specific [place] 1.021 Cancelled (1.001-1.035) Urine Protein Trace Cancelled (Neg - Trace) Urine Glucose (UA) 4+ A (Negative) 05/03/25 Range/Units 04:33 Urine Color (Lt Yel-Yel) Urine Clarity (Clear/Hazy) Urine pH (5.0-7.0) Ur Specific [place] (1.001-1.035) Urine Protein (Neg - Trace) Urine Glucose (UA) Cancelled (Negative) ABG Interpretation ABG results: 05/03/25 05/03/25 05/03/25 01:39 02:58 12:54 ABG pH 7.16 L* ABG pCO2 24 L ABG pO2 107 ABG HCO3 9 L* ABG O2 Saturation 98 ABG Base Excess -18 L VBG pH 7.11 L 7.36 VBG pCO2 31 L 50 D VBG pO2 50 39 VBG Base Excess -19 L 2 Quality Measures Quality Measures none Medications Home Medications and Allergies Home Medications ?Medication ?Instructions ?Recorded ?Confirmed ?Type insulin glargine 100 unit/mL (3 40 unit subcut QAM 10/30/22 History mL) subcutaneous pen (Lantus Solostar U-100 Insulin) Allergies Allergy/AdvReac Type Severity Reaction Status Date / Time codeine Allergy Mild Vomiting Verified 05/03/25 00:39 Visit Medications Acetaminophen (Acetaminophen 325 Mg Tablet) 650 mg PO Q4H PRN PRN Reason: fever >99.9 Stop: 06/02/25 06:14 Dextrose (Dextrose 50%-Water Inj 50 Ml Syringe) 25 ml IV [id number] PRN PRN Reason: Blood Sugar - Low Heparin Sodium (Porcine) (Heparin Sod Inj 5000 Unit/Ml Vial) 5,000 unit SC Q12HR CHUY Stop: 05/17/25 20:59 Hydromorphone HCl (Hydromorphone Inj 2 Mg/Ml Vial) 0.5 mg IVP Q4H PRN PRN Reason: pain 5-10 Stop: 05/08/25 06:09 Potassium Chloride (Kcl Ivpb) 10 meq in 100 mls @ 100 mls/hr IV .Q1H PRN PRN Reason: IF POTASSIUM LESS THAN 3.3 Stop: 06/02/25 02:30 Magnesium Sulfate (Magnesium Sulfate Ivpb) 2 gm in 50 mls @ 25 mls/hr IV .Q2H PRN PRN Reason: PER DKA PROTOCOL Stop: 06/02/25 02:30 Insulin Human Regular 100 unit (/ IV Miscellaneous Supplies) 100 mls @ 6.759 mls/hr IV .[id number] PRN; Protocol PRN Reason: PER PROTOCOL Stop: 06/02/25 02:30 Last Titration: 05/03/25 18:00 Dose: 0.1 unit/kg/hr, 6.759 mls/hr Dextrose/Lactated Ringer's (D5-Lr) 1,000 mls @ 250 mls/hr IV .Q4H PRN PRN Reason: PER PROTOCOL Stop: 06/02/25 02:30 Lactated Ringer's (Lactated Ringers) 1,000 mls @ 250 mls/hr IV .Q4H PRN PRN Reason: PER PROTOCOL Stop: 05/04/25 02:30 Potassium Chloride 20 meq/ (Lactated Ringer's) 1,010 mls @ 250 mls/hr IV .Q4H3M PRN PRN Reason: K LEVEL 3.3 TO 5.3mM/L Stop: 06/02/25 02:30 Last Infusion: 05/03/25 14:18 Dose: 0 mls/hr Potassium Chloride 40 meq/ (Lactated Ringer's) 1,020 mls @ 250 mls/hr IV .Q4H5M PRN PRN Reason: K LEVEL < 3.3 mM/L Stop: 06/02/25 02:30 Potassium Chloride 40 meq/ (Dextrose/Lactated Ringer's) 1,020 mls @ 250 mls/hr IV .Q4H5M PRN PRN Reason: K LEVEL < 3.3mM/L Stop: 06/02/25 02:30 Potassium Chloride (Kcl Ivpb) 10 meq in 100 mls @ 50 mls/hr IV PRN PRN PRN Reason: K LEVEL 3.3 to 5.3 & BG > 200 Stop: 06/02/25 02:30 Potassium Phosphate (Pot Phos 15 Mmol In Ns 250 Ml) 15 mmol in 250 mls @ 62.5 mls/hr IV PRN PRN PRN Reason: Phosphate <= 1mg/dL Stop: 06/02/25 02:30 Sodium Phosphate 15 mmol/ (Sodium Chloride) 255 mls @ 62.5 mls/hr IV .Q4H5M PRN PRN Reason: Phosphate <= 1mg/dL and K> than 5.3 Stop: 06/02/25 02:30 Potassium Chloride 20 meq/ (Dextrose/Lactated Ringer's) 1,000 mls @ 250 mls/hr IV .Q4H PRN PRN Reason: K LEVEL 3.3 TO 5.3 mM/L Stop: 06/02/25 14:01 Last Admin: 05/03/25 14:17 Dose: 250 mls/hr Pantoprazole Sodium (Pantoprazole Inj 40 Mg Vial) 40 mg IVP BID CHUY Stop: 06/02/25 20:59 Sodium Bicarbonate (Sodium Bicarb Inj 8.4% Syr 50 Ml Syringe) 50 ml IV Q4HR PRN PRN Reason: For ph <= to 7.0 Stop: 06/02/25 02:30 Sodium Chloride (Sodium Chloride Rt Sarai 0.9% 3 Ml Nebu) 3 ml INH PRN PRN PRN Reason: SOLN Stop: 06/02/25 02:40 Last Admin: 05/03/25 02:55 Dose: 3 ml Discontinued Medications Albuterol (Albuterol Rt 2.5 Mg/0.5 Ml Nebu) 10 mg INH X1 ONE Stop: 05/03/25 02:42 Last Admin: 05/03/25 02:55 Dose: 10 mg Calcium Chloride (Calcium Chloride 10% Inj 10 Ml Syrg) 10 ml IV X1 ONE Stop: 05/03/25 02:42 Last Admin: 05/03/25 04:31 Dose: 10 ml Calcium Gluconate (Calcium Gluconate 10% Inj 1 Gm/10 Ml Vial) 1 gm IV X1 ONE Stop: 05/03/25 07:05 Last Admin: 05/03/25 07:39 Dose: 1 gm Sodium Chloride (Ns) 1,000 mls @ 999 mls/hr IV .Q1H1M ONE Stop: 05/03/25 02:06 Last Infusion: 05/03/25 02:38 Dose: Infused Sodium Chloride (Ns) 1,000 mls @ 999 mls/hr IV .Q1H1M ONE Stop: 05/03/25 03:11 Last Admin: 05/03/25 02:17 Dose: Not Given Sodium Chloride (Ns) 1,000 mls @ 999 mls/hr IV .Q1H1M ONE Stop: 05/03/25 03:09 Last Infusion: 05/03/25 03:21 Dose: Infused Pantoprazole Sodium (Protonix/Ns 80mg Iv Premix) 80 mg in 100 mls @ 10 mls/hr IV Q10H CHUY Stop: 05/06/25 00:09 Last Infusion: 05/03/25 11:00 Dose: 0 mls/hr Piperacillin Sod/Tazobactam (Sod 4.5 gm/ Sodium Chloride) 100 mls @ 200 mls/hr IV Q8HR CHUY; Protocol Stop: 05/10/25 05:59 Vancomycin HCl 1,000 mg/ (Sodium Chloride) 250 mls @ 150 mls/hr IV X1 ONE Stop: 05/03/25 04:17 Last Infusion: 05/03/25 08:00 Dose: Infused Piperacillin Sod/Tazobactam (Sod 3.375 gm/ Sodium Chloride) 100 mls @ 200 mls/hr IV X1 ONE; Protocol Stop: 05/03/25 03:14 Last Infusion: 05/03/25 04:26 Dose: Infused Cefepime HCl 2 gm/ Sodium (Chloride) 50 mls @ 100 mls/hr IV Q12HR CHUY Stop: 05/10/25 20:59 Cefepime HCl 2 gm/ Sodium (Chloride) 50 mls @ 100 mls/hr IV X1 ONE Stop: 05/03/25 06:29 Last Admin: 05/03/25 08:03 Dose: 100 mls/hr Octreotide Acetate 1,000 mcg/ (Sodium Chloride) 102 mls @ 5.1 mls/hr IV .Q20H CHUY; Protocol Stop: 06/03/25 03:59 Octreotide Acetate 1,000 mcg/ (Sodium Chloride) 102 mls @ 5.1 mls/hr IV .Q20H CHUY; Protocol Stop: 05/04/25 02:59 Last Infusion: 05/03/25 11:00 Dose: 0 mcg/hr, 0 mls/hr Lactated Ringer's (Lactated Ringers) 1,000 mls @ 999 mls/hr IV .Q1H1M ONE Stop: 05/03/25 08:05 Last Admin: 05/03/25 07:33 Dose: 999 mls/hr Insulin Human Regular (Insulin Hum Regular 1 Unit/0.01 Ml (Per Unit)) 7 unit IV X1 ONE Stop: 05/03/25 02:32 Last Admin: 05/03/25 02:48 Dose: 7 unit Pantoprazole Sodium (Pantoprazole Inj 40 Mg Vial) 80 mg IVP X1 ONE Stop: 05/03/25 02:10 Last Admin: 05/03/25 03:06 Dose: Not Given Pantoprazole Sodium (Pantoprazole Inj 40 Mg Vial) 80 mg IVP X1 ONE Stop: 05/03/25 02:38 Last Admin: 05/03/25 02:44 Dose: 80 mg Sevelamer Carbonate (Sevelamer Carbonate 800 Mg Tablet) 400 mg PO X1 ONE Stop: 05/03/25 06:13 Last Admin: 05/03/25 08:16 Dose: 400 mg Sodium Bicarbonate (Sodium Bicarb Inj 8.4% Syr 50 Ml Syringe) 50 ml IV X1 ONE Stop: 05/03/25 06:58 Last Admin: 05/03/25 07:39 Dose: 50 ml Sodium Polystyrene Sulfonate (Sod Polystyrene Sulfon Susp 15 Gm/60 Ml Btl) 15 gm PO X1 ONE Stop: 05/03/25 06:15 Last Admin: 05/03/25 08:00 Dose: 15 gm Assessment & Plan Plan Summary: A 55-year-old female patient with past medical history of insulin- dependent diabetes mellitus, recurrent DKA, methamphetamine use disorder, reportedly hepatitis C presented to the ED after she started to experience multiple episodes of hematemesis. She reported that she had 6 episodes of hematemesis and she estimated blood loss to be almost 1 cup. Patient was admitted for treatment of acute pancreatitis, DKA and upper GI bleed. #Acute pancreatitis #Upper GI bleed #History of questionable hepatitis C #Gallbladder stone versus sludge Reportedly patient is known case of hep C status posttreatment? She came due to severe abdominal pain associated with hematemesis after she was binge drinking. Patient denied any excessive vomiting however she reported the pain. Reported upper GI bleed almost 1 cup of blood. There is no clear documentation of her hepatitis C on her chart. Patient was found to have lipase level of 1400, CT scan showed pancreatic edema and also showed gallbladder sludge versus stones. Patient denied any melena or fresh blood per rectum and denied any history of weight loss. Patient denied any history of similar symptoms and denied any history of acute pancreatitis. Plan ? Liver ultrasound ? Chronic hepatitis panel ? Continue patient on Protonix, and octreotide drip ? Keep the patient n.p.o. for possible EGD as soon as her general condition improved ? Continue IV fluid management for the DKA and also for the acute pancreatitis ? Alcohol cessation counseling ? if the liver ultrasound showed gallbladder stones it would be recommended to consult general surgery before discharge #DKA #Type 1 diabetes mellitus # substance use disorder Plan ? Continue IV fluid treatment as per protocol, on insulin, and electrolyte replacement ?Chronic hepatitis screening Thank you for your consultation, please do not hesitate to reach out if you have any question or concern - Patient's plan and care discussed with my attending, Dr Jose Miguel Cooper MD Internal Medicine PGY-3 Attending Provider Attestation/Addendum Patient evaluated patient personally examined by me and the laboratory data reviewed I discussed the case in detail with the evaluation of internal medicine resident And I fully agree with the assessment Patient is coming out of the DKA We will hold off doing the endoscopy today I have spoken during my examination with the attending RN in the ICU Patient will have a clear liquid diet till 10 AM tomorrow then n.p.o. and we will do the upper endoscopy tomorrow evening Consent obtained for fiberoptic esophagogastroduodenoscopy with possible biopsy possible therapeutic intervention under intravenous moderate sedation Serial CBC Continue IV Protonix Thank you very much for the opportunity to participate in the care of this patient
[2025-05-03 19:32] LABS: Lactate (Lactic Acid) 2.0 mMol/L (0.4-2.0)
[2025-05-03 20:14] LABS: Albumin, Serum 3.8 gm/dL (3.5-5.0); Anion Gap 8 (7-16); BUN/Creatinine Ratio 27 Ratio (12-20); Blood Urea Nitrogen 30 mg/dL (9-23); Calcium 9.7 mg/dL (8.3-10.6); Calcium (Corrected) 9.9 mg/dL (8.5-10.1); Carbon Dioxide 31.5 mMol/L (20.0-31.0); Chloride 114 mMol/L (98-107); Creatinine (Component) 1.1 mg/dL (0.6-1.3); Estimated Creatinine Clearance 55.2 mL/min (>60); Glucose 163 mg/dL (74-106); Magnesium 1.9 mg/dL (1.6-2.6); Osmolality,Calculated 313 (275-295); Phosphorous 2.3 mg/dL (2.4-5.1); Potassium 3.6 mMol/L (3.4-5.1); Sodium 153 mMol/L (136-145); eGFR 60 See Note
[2025-05-03] MEDS: HEPARIN SOD INJ 5000 UNIT/ML VIAL SC (20:26)
[2025-05-03] MEDS: ACETAMINOPHEN 325 MG TABLET 650 MG PO (20:32)
[2025-05-03] MEDS: ONDANSETRON INJ 2 MG/ML INJ 2 ML 4 MG IVP (20:39)
[2025-05-03] MEDS: DEXTROSE 5%-0.45% NS 1,000 ML 250 ML IV (21:20)
[2025-05-03] MEDS: POT PHOS 15 mMol in NS 250 ML 15 MMOL/250 ML BAG 62.5 MMOL IV (21:21)
[2025-05-03] MEDS: POTASSIUM CHL 10 mEq IVPB 10 MEQ/100 ML BAG 50 MEQ IV (22:20)
[2025-05-03 23:39] LABS: Albumin, Serum 3.8 gm/dL (3.5-5.0); Anion Gap 11 (7-16); BUN/Creatinine Ratio 21 Ratio (12-20); Blood Urea Nitrogen 25 mg/dL (9-23); Calcium 9.2 mg/dL (8.3-10.6); Calcium (Corrected) 9.4 mg/dL (8.5-10.1); Carbon Dioxide 29.2 mMol/L (20.0-31.0); Chloride 113 mMol/L (98-107); Creatinine (Component) 1.2 mg/dL (0.6-1.3); Estimated Creatinine Clearance 50.6 mL/min (>60); Glucose 299 mg/dL (74-106); Osmolality,Calculated 318 (275-295); Phosphorous 2.8 mg/dL (2.4-5.1); Potassium 3.8 mMol/L (3.4-5.1); Sodium 153 mMol/L (136-145); eGFR 54 See Note
[2025-05-04] VITALS (16 sets, daily range): BP systolic 115–150; BP diastolic 61–89; PULSE 83–109; RESP 14–27; TEMP 36.4–37.2; O2SAT 92–99; BMI 25.4
[2025-05-04] MEDS: POTASSIUM CHL 10 mEq IVPB 10 MEQ/100 ML BAG 50 MEQ IV (00:14)
[2025-05-04] MEDS: SODIUM CHLORIDE 0.45 % 1,000 ML 150 ML IV (00:19)
[2025-05-04] MEDS: INSULIN DEGLUDEC 5 UNIT/0.05 ML (PER 5 UNITS) 25 UNIT SC ×2 (00:22→21:24)
[2025-05-04 05:56] LABS: Basophils # (Auto) 0.0 Thou/mm3 (0.0-0.2); Basophils % (Auto) 0 % (0-2.5); Eosinophils # (Auto) 0.0 Thou/mm3 (0.0-0.5); Eosinophils % (Auto) 0 % (0-10); Hematocrit 32.2 % (36.0-46.0); Hemoglobin 11.2 g/dL (12.0-16.0); Immature Granulocytes Auto 0.08 Thou/mm3 (0.00-0.00); Lymphocytes # (Auto) 1.7 Thou/mm3 (1.0-4.8); Lymphocytes % (Auto) 10 % (10-50); Mean Corpuscular HGB Conc 34.8 g/dl (31.0-37.0); Mean Corpuscular Hemoglobin 29.3 pg (25.0-35.0); Mean Corpuscular Volume 84 fL (80-100); Monocytes # (Auto) 1.1 Thou/mm3 (0.0-0.8); Monocytes % (Auto) 7 % (0-12); Neutrophils # (Auto) 13.4 Thou/mm3 (1.8-7.7); Neutrophils % (Auto) 82 % (37-80); Nucleated Red Blood Cell # 0.00 Thou/mm3 (0.00-0.00); Nucleated Red Blood Cell % 0 /100 WBC (0); Platelet Count 263 Thou/mm3 (140-440); RDW Standard Deviation 37.5 fL (36.4-46.3); Red Blood Count 3.82 Miln/mm3 (4.00-5.20); White Blood Count 16.4 Thou/mm3 (3.6-11.0)
[2025-05-04 06:30] LABS: Albumin, Serum 3.7 gm/dL (3.5-5.0); Anion Gap 14 (7-16); BUN/Creatinine Ratio 22 Ratio (12-20); Blood Urea Nitrogen 20 mg/dL (9-23); Calcium 8.9 mg/dL (8.3-10.6); Calcium (Corrected) 9.1 mg/dL (8.5-10.1); Carbon Dioxide 25.8 mMol/L (20.0-31.0); Chloride 110 mMol/L (98-107); Creatinine (Component) 0.9 mg/dL (0.6-1.3); Estimated Creatinine Clearance 67.5 mL/min (>60); Glucose 239 mg/dL (74-106); Magnesium 2.0 mg/dL (1.6-2.6); Osmolality,Calculated 308 (275-295); Phosphorous 2.6 mg/dL (2.4-5.1); Potassium 4.0 mMol/L (3.4-5.1); Sodium 150 mMol/L (136-145); Thyroid Stimulating Hormone 0.72 uIU/mL (0.55-4.78); eGFR > 60 See Note
[2025-05-04 06:37] LABS: Glucose Estimated Average 240 mg/dL (80-131); Hemoglobin A1C 10.0 % Hgb (4.8-6.0)
[2025-05-04] MEDS: INSULIN LISPRO (AdmeLOG) 1 UNIT/0.01 ML UNIT 5 UNIT SC (07:50)
[2025-05-04] MEDS: INSULIN LISPRO (AdmeLOG) 1 UNIT/0.01 ML UNIT SC ×3 (07:50→17:57)
--- NOTE | 2025-05-04 09:42 | ESPR_ITS ---
Documentation for date of: 05/04/25 Overnight downgrade form ICU. Patient is a 55 year old female with past medical history of Diabetes Mellitus type II, insulin dependent with frequent admission secondary to ICU, Hepatitis C, and Substance Use Disorder-Methamphetamine who was admitted directly into the ICU DKA. Patient also complaining of hematemsis. Down graded after anion gap closed and paitent was started on degludec 25 units HS and Sliding Scale. A1c 10.0% Patient examined at bedside. Alert and Orientated X 3. Jennynet is currenlty NPO as she is scheduled for EGD given hematemesis. Acute Pancreatitis, improving, as initial Lipase of 1146 and pancreatitis noted on Abdomen/Pelvis CT . Leukocytosis likely reactive vs less likely secondary to cholelithiasis as US liver NEGATIVE. MAHI resolved. Sliding scale, lispro 7scheduled, and Degludec 25 units HS. Continue Protonix BID ASCVD 3.2% consider moderate statins given diabetes history. Pending EGD. Microalbum-creatine 1. Hemetemsis 2. Normocytic Anemia, likely dilutional 3. Hyperlgycemia 4. Diabetes Mellitus Type II 5.Leukocytosis. 5.DKA, Resolved. 6.Pancreatitis, resolving 7. Normocytic Anemia Senior Resident Attestation: I have discussed the case with supervising physician and sports team marketing intern physician involved in the care of patient. I personally saw and examined patient and discussed the assessment and plan with the entire medical team, including attending. I agree with assessment and plan as documented below. - The patient's plan was discussed with attending Dr. Cedric Long MD PGY2 Internal Medicine Subjective Subjective Interval history: ICU downgrade for DKA. Patient examined bedside, labs reviewed. Patient prepared for EGD today. Still has nausea, not radiating to the back. Exam Vital Signs Temp Pulse Resp BP Pulse Ox O2 Del Method 97.8 F 108 H 17 124/72 95 Room Air 05/04/25 07:51 05/04/25 07:51 05/04/25 07:51 05/04/25 07:51 05/04/25 07:51 05/04/25 07:51 Narrative Exam GEN: AOx3, able to speak full sentences HEENT: NC/AC, PERRLA, oral mucosa dry with poor dentition, neck supple CVS: RRR, systolic murmur in the pulmonary area -S2 present, + JVD RESP: CTAB GI: soft,non distended, diffuse tenderness however no rigidity or skin rash. MSK: able to move all 4 limbs, trace lower extremity edema SKIN: warm and dry ENGINE BOSS: CN II-XII and Sensation grossly intact. Objective Labs 05/05/25 04:40 05/05/25 10:55 Labs: Laboratory Results - last 24 hr 05/03/25 05/03/25 05/03/25 04:33 09:29 12:54 WBC RBC Hgb Hct MCV MCH MCHC RDW Std Deviation Plt Count Neut % (Auto) Lymph % (Auto) [place] % (Auto) Eos % (Auto) Baso % (Auto) Neut # (Auto) Lymph # (Auto) [place] # (Auto) Eos # (Auto) Baso # (Auto) Immature Gran # (Auto) Absolute Nucleated RBC Immature Gran % Nucleated RBC % VBG pH 7.36 VBG pCO2 50 D VBG pO2 39 VBG O2 Sat (Yaron) 74 L VBG Base Excess 2 Sodium 146 H 152 H Potassium 3.6 3.7 Chloride 106 110 H Carbon Dioxide 23.4 24.6 Anion Gap 17 H 17 H BUN 39 H 53 H Creatinine 2.5 H D 2.1 H Estim Creat Clear Calc 24.3 L 28.9 L eGFR 22 L 27 L BUN/Creatinine Ratio 16 25 H Glucose 630 H* D 408 H* D Estimated Ave Glu mg/dL Hemoglobin A1c Calculated Osmolality 329 H 333 H Lactic Acid 3.7 H 4.0 H Calcium 10.4 10.0 Corrected Calcium 10.4 H 10.0 Phosphorus 3.9 3.5 Magnesium 2.4 2.2 Albumin 4.3 4.1 TSH Urine Opiates Screen Negative Urine Fentanyl Screen Negative Ur Barbiturates Screen Negative U Amphetamin/Meth Scrn Negative U Benzodiazepines Scrn Negative U Cocaine Metab Screen Negative U Marijuana (THC) Screen Negative Hep Bs Antigen Non Reactive Hep Bs Antibody NonReact(Not Immune) L Hep B Core IgM Ab Non Reactive Hepatitis C Antibody Reactive A 05/03/25 05/03/25 05/04/25 19:26 23:02 04:18 WBC 16.4 H RBC 3.82 L Hgb 11.2 L D Hct 32.2 L MCV 84 MCH 29.3 MCHC 34.8 RDW Std Deviation 37.5 Plt Count 263 D Neut % (Auto) 82 H Lymph % (Auto) 10 [place] % (Auto) 7 Eos % (Auto) 0 Baso % (Auto) 0 Neut # (Auto) 13.4 H Lymph # (Auto) 1.7 [place] # (Auto) 1.1 H Eos # (Auto) 0.0 Baso # (Auto) 0.0 Immature Gran # (Auto) 0.08 H Absolute Nucleated RBC 0.00 Immature Gran % 1 H Nucleated RBC % 0 VBG pH VBG pCO2 VBG pO2 VBG O2 Sat (Yaron) VBG Base Excess Sodium 153 H 153 H 150 H Potassium 3.6 3.8 4.0 Chloride 114 H 113 H 110 H Carbon Dioxide 31.5 H 29.2 25.8 Anion Gap 8 11 14 BUN 30 H 25 H 20 Creatinine 1.1 D 1.2 0.9 Estim Creat Clear Calc 55.2 L 50.6 L 67.5 eGFR 60 54 L > 60 BUN/Creatinine Ratio 27 H 21 H 22 H Glucose 163 H D 299 H D [address] Glu mg/dL 240 H Hemoglobin A1c 10.0 H Calculated Osmolality 313 H 318 H 308 H Lactic Acid 2.0 Calcium 9.7 9.2 8.9 Corrected Calcium 9.9 9.4 9.1 Phosphorus 2.3 L 2.8 2.6 Magnesium 1.9 2.0 Albumin 3.8 3.8 3.7 TSH 0.72 Urine Opiates Screen Urine Fentanyl Screen Ur Barbiturates Screen U Amphetamin/Meth Scrn U Benzodiazepines Scrn U Cocaine Metab Screen U Marijuana (THC) Screen Hep Bs Antigen Hep Bs Antibody Hep B Core IgM Ab Hepatitis C Antibody ABG Interpretation ABG results: 05/03/25 05/03/25 05/03/25 01:39 02:58 12:54 ABG pH 7.16 L* ABG pCO2 24 L ABG pO2 107 ABG HCO3 9 L* ABG O2 Saturation 98 ABG Base Excess -18 L VBG pH 7.11 L 7.36 VBG pCO2 31 L 50 D VBG pO2 50 39 VBG Base Excess -19 L 2 Quality Measures Quality Measures none Assessment & Plan Assessment Current Active Medications: Generic Name Dose Route Start Last Admin Trade Name Freq PRN Reason Stop Dose Admin Acetaminophen 650 mg 10/27/25 06:11 05/03/25 20:32 Acetaminophen 325 Mg Tablet PO 06/02/25 06:14 650 mg Q4H PRN Administration fever >99.9 Dextrose 50 ml 05/03/25 23:53 Dextrose 50%-Water Inj 50 Ml Syringe IV 06/02/25 23:52 Q15MIN PRN BG <50 OR BG <70 & pt unresponsive Glucagon 1 mg 05/03/25 23:53 Glucagon Inj 1 Mg Vial IM Q15MIN PRN BG <70, and no IV access Heparin Sodium (Porcine) 5,000 unit 05/03/25 21:00 05/03/25 20:26 Heparin Sod Inj 5000 Unit/Ml Vial SC 05/17/25 20:59 5,000 unit Q12HR CHUY Administration Dextrose/Sodium Chloride 1,000 mls @ 100 mls/hr 05/04/25 08:57 D5-1/2ns IV 05/04/25 18:56 .Q10H ONE Insulin Degludec 25 unit 05/03/25 23:55 05/04/25 00:22 Insulin Degludec 5 Unit/0.05 Ml (Per 5 Units) SC 06/02/25 23:54 25 unit QPM CHUY Administration Insulin Human Lispro 0 unit 05/04/25 09:00 Insulin Lispro (Admelog) 1 Unit/0.01 Ml Unit SC 06/03/25 08:59 Q6HR [facility] Protocol Insulin Human Lispro 7 unit 05/04/25 12:00 Insulin Lispro (Admelog) 1 Unit/0.01 Ml Unit SC 06/03/25 11:59 TIDWM [facility] Ondansetron HCl 4 mg 05/03/25 18:44 05/03/25 20:39 Ondansetron Inj 2 Mg/Ml Inj 2 Ml IVP 06/02/25 18:43 4 mg Q6HR PRN Administration NAUSEA OR VOMITING Protocol Pantoprazole Sodium 40 mg 05/03/25 21:00 05/03/25 20:27 Pantoprazole Inj 40 Mg Vial IVP 06/02/25 20:59 40 mg BID CHUY Administration Plan 55-year-old female with poorly controlled type 1 diabetes, recurrent DKA, hepatitis C, and methamphetamine use presented with acute abdominal pain, intractable nausea, and hematemesis following recent alcohol intake, admitted to ICU for DKA and acute pancreatitis. In the ICU patient had anion gap closed twice and lactic acidosis resolve with IV fluids and insulin regiment. #SIRS most likely 2/2 DKA and pancreatitis - resolved Met 2/4 SIRS criteria: T 97.7F, HR 66, RR 26, WBC 30.3. Lactic acid on admission: 5.8. BP 65/4. MAP 50. Cr 4.1. UA: glucose 4+, ketones 1+, WBC 4, RBC 4. CXR: mild vascular congestion. Blood cultures no growth at 48hrs. IV fluids: 30 mL/kg was given in the ED. Received 2L NS in ED. Gave additional 1L LR in the ICU. Cefepime was initially started in the ED; however, it has since been discontinued as the patient shows no signs of active infection. Leukocytosis likely reactive from DKA and acute pancreatitis. Patient remains afebrile. Plan: -ICU downgrade #DKA - resolved #HAGMA - resolved #Lactic acidosis DDx: lactic acidosis, DKA ABG: pH 7.16, CO2 24. Bicarb on chem panel <10. Na 120, Cl 77, K 6.8. Glucose 1438. Lactic acid 5.8. Beta-Hydroxybutyrate > 6.4. A1C: 10. Treated with 3L IV fluids and bicarb amp, Sevelamer 400mg x1 for hyperphosphatemia. . Lactic acidosis resolved and anion gap closed twice Plan: -CTM labs -FUP repeat renal panels -IVF as necessary #Acute pancreatitis DDx: gallstones vs alcohol vs infection vs hypertriglyceridemia vs drugs. History of recent heavy alcohol intake. Liver ultrasound: negative for cholelithiasis, negative for cholecystitis Labs: Triglycerides 148. Lipase 1146. CT abdomen/pelvis: edematous appearing pancreas. [place] score: not calculated as scoring system confounded by DKA. Plan: - Hydromorphone 0.5mg Q4H PRN pain. - Ondansetron 4mg IV PRN nausea. - CLD advance as tolerated - Protonix 40mg BID IV daily for GI PPX. #Hematemesis 2/2 Patient reports coughing up one cup of blood. is active smoker. EGD planned Plan: -Pending EGD #T2DM A1C:10 on admission Plan: -ISS #Hx of hep C Diagnostic test: - Hepatitis C antibody: reactive. Treatment Plan: - Per patient, she has been treated in the past but does not remember name of treatment. - Chronic hepatitis panel ordered by GI team. Health Maintenance: DVT prophylaxis: heparin 5000 SQ GI prophylaxis: Protonix 40mg BID Diet: NPO Perez: none Lines: Peripherals Drips: none Vent: no on MV CODE STATUS: FULL CODE Patient discussed with my senior resident Dr. Long and attending, Dr. Cedric Boyd MD Internal Medicine, PGY 1 Attending Provider Attestation/Addendum I have seen and examined the patient. I was physically present for the ojeda portions of the services provided including history, physical exam, diagnosis, treatment plans and orders. I agree with assessment and plan of care as documented by residents. Even though this this note was carefully revised there may still be minor errors in branch operations manager due to voice recognition software. Duarte Steele MD
[2025-05-04] MEDS: HEPARIN SOD INJ 5000 UNIT/ML VIAL SC ×3 (09:45→21:25)
[2025-05-04] MEDS: DEXTROSE 5%-0.45% NS 1,000 ML 100 ML IV (10:04)
[2025-05-04] MEDS: ACETAMINOPHEN 325 MG TABLET 650 MG PO (11:44)
[2025-05-04] MEDS: INSULIN LISPRO (AdmeLOG) 1 UNIT/0.01 ML UNIT 7 UNIT SC ×2 (11:45→17:56)
--- NOTE | 2025-05-04 13:25 | PC.SS ---
Addendum entered by Lovely Rubio 05/04/25 15:37: SS follow up note; SS was contacted by Financial counselor, Otilia and she informed SS that patient's medical request was processed this morning. Medical worker should be contacted patient. Original Note: Patient Mireya Gaines is a 55 Year old female admitted for DKA Pacreatitis. SS met with patient at bedside to discuss discharge plan and verify demographic information. Patient reports she lives at home with her , Bharath Gaines who she reports is her surrogate decision maker, [phone]. Patient reports prior to admission she was able to complete all ADL's independently and did not utilize any source of DME to assist with ambulation. Choice of pharmacy is [facility] SS provided Community resources for list of Clinics. SS also contacted Otilia's Financial counselor to contact patient and assist with applying for medi-pinky. At time of discharge patient will return back home, will provide transportation. Discharge Plan: Home Next of kin: , [phone]
[2025-05-04] MEDS: METOCLOPRAMIDE INJ 5 MG/ML VIAL 2 ML IVP (21:27)
[2025-05-05] VITALS: BP 132/69; PULSE 100; RESP 16; TEMP 37.6; O2SAT 96
[2025-05-05] MEDS: INSULIN LISPRO (AdmeLOG) 1 UNIT/0.01 ML UNIT SC ×3 (00:06→12:13)
[2025-05-05] MEDS: METOCLOPRAMIDE INJ 5 MG/ML VIAL 2 ML IVP ×3 (00:08→12:13)
[2025-05-05 04:00] VITALS: BP 126/80; PULSE 97; RESP 17; TEMP 37.2; O2SAT 92
[2025-05-05] MEDS: HEPARIN SOD INJ 5000 UNIT/ML VIAL SC (05:13)
[2025-05-05 05:39] LABS: Basophils # (Auto) 0.0 Thou/mm3 (0.0-0.2); Basophils % (Auto) 0 % (0-2.5); Eosinophils # (Auto) 0.0 Thou/mm3 (0.0-0.5); Eosinophils % (Auto) 0 % (0-10); Hematocrit 38.3 % (36.0-46.0); Hemoglobin 12.9 g/dL (12.0-16.0); Immature Granulocytes Auto 0.01 Thou/mm3 (0.00-0.00); Lymphocytes # (Auto) 2.0 Thou/mm3 (1.0-4.8); Lymphocytes % (Auto) 27 % (10-50); Mean Corpuscular HGB Conc 33.7 g/dl (31.0-37.0); Mean Corpuscular Hemoglobin 29.1 pg (25.0-35.0); Mean Corpuscular Volume 87 fL (80-100); Monocytes # (Auto) 0.6 Thou/mm3 (0.0-0.8); Monocytes % (Auto) 8 % (0-12); Neutrophils # (Auto) 4.8 Thou/mm3 (1.8-7.7); Neutrophils % (Auto) 65 % (37-80); Nucleated Red Blood Cell # 0.00 Thou/mm3 (0.00-0.00); Nucleated Red Blood Cell % 0 /100 WBC (0); Platelet Count 232 Thou/mm3 (140-440); RDW Standard Deviation 41.1 fL (36.4-46.3); Red Blood Count 4.43 Miln/mm3 (4.00-5.20); White Blood Count 7.4 Thou/mm3 (3.6-11.0)
[2025-05-05 06:00] VITALS: BMI 24.5
[2025-05-05 06:18] LABS: Albumin, Serum 4.1 gm/dL (3.5-5.0); Anion Gap 11 (7-16); BUN/Creatinine Ratio 15 Ratio (12-20); Blood Urea Nitrogen 9 mg/dL (9-23); Calcium 9.1 mg/dL (8.3-10.6); Calcium (Corrected) 9.1 mg/dL (8.5-10.1); Carbon Dioxide 31.0 mMol/L (20.0-31.0); Chloride 104 mMol/L (98-107); Creatinine (Component) 0.6 mg/dL (0.6-1.3); Estimated Creatinine Clearance 101.3 mL/min (>60); Glucose 242 mg/dL (74-106); Magnesium 2.0 mg/dL (1.6-2.6); Osmolality,Calculated 297 (275-295); Phosphorous 2.0 mg/dL (2.4-5.1); Potassium 3.2 mMol/L (3.4-5.1); Sodium 146 mMol/L (136-145); eGFR > 60 See Note
[2025-05-05 08:00] VITALS: BP 128/77; PULSE 87; PULSE 97; RESP 18; TEMP 36.4; O2SAT 94
[2025-05-05] MEDS: INSULIN LISPRO (AdmeLOG) 1 UNIT/0.01 ML UNIT 7 UNIT SC (08:10)
[2025-05-05] MEDS: POTASSIUM CHL 10 mEq IVPB 10 MEQ/100 ML BAG 100 MEQ IV ×2 (08:25→10:40)
[2025-05-05] MEDS: NAPH,KPH MBDB 1 PACKET (1.5 GM) PO (08:25)
[2025-05-05 09:07] LABS: Creatinine MALB Rnd Ur 50 mg/dL (30-125); Microalbumin Creat Ratio 30 mg/gCrea (<30); Microalbumin, Random Urine 15 mg/L (0-300)
[2025-05-05] MEDS: FLUCONAZOLE 100 MG TABLET 400 MG PO (10:44)
[2025-05-05 11:29] LABS: Sodium 144 mMol/L (136-145)
[2025-05-05 11:47] VITALS: BP 127/79; PULSE 86; RESP 17; TEMP 36.6; O2SAT 96
[2025-05-05 12:00] VITALS: PULSE 90
--- NOTE | 2025-05-05 12:26 | PC.SS ---
SS follow up note; Patient will possibly discharge home today.
--- NOTE | 2025-05-05 13:31 | PC.CC ---
Dr. Hernández inquired about affordable CGM for this non-insured patient. Per notes, patient has been referred to [facility] with no insurance update at this time. Met w/ patient at bedside. Patient states she has tried a CGM in the past and prefers to test by fingerstick. She does not have insurance at this time, nor does she she a PCP. She purchases NPH and insulin regular OTC from [employer] and intends to continue doing so. She is, however, open to seeing someone at the [facility]. Discussed changes to her medication plan including insulin degludec and insulin lispro. Discussed with patient Randolph [employer] myinsulinRx savings program and provided information on enrollment by text. Patient states she will have access to her cell phone after discharge. Patient stated she needs test strips and was assured an Rx has been sent, but to ensure the corresponding test strips to her home glucometer are dispensed. Also advised to present myinsulinRx savings card to pharmacy and instruct them to dispense brand Tresiba FlexTouch and Novolog Flexpen if needed in order to qualify under program. Discussed with MD. Requested insulin lispro to be changed to Novolog Flexpen to qualify for myinsulinRx program.
[2025-05-05 15:00] LABS: HIV (1&2) Antibody Rapid Non-Reactive
[2025-05-05 16:00] VITALS: BP 131/69; PULSE 83; RESP 17; TEMP 36.4; O2SAT 96
--- NOTE | 2025-05-05 16:31 | PD.RESDS ---
Planned Discharge Date 05/05/25 Patient is a 55 year old female with past medical history of Diabetes Mellitus type II, insulin dependent with frequent admission secondary to ICU, Hepatitis C, and Substance Use Disorder-Methamphetamine, peptic ulcer disease, and sahara esophagitis who was admitted directly into the ICU for DKA treatment secondary to medication non-compliance, concern for hemetemsis, and acute pancreatitis meeting SIRS criteria. After ICU downgraded, patient was started on Degludec 25 units HS and Sliding scale with schedule lispro. Further adjustments made on floors with patient's insluin. Pancreatitis resolved upon downgrade. Patient started on regular diet and eventually made NPO for EGD given hemetemsis per patient hsitory on admission. EGD on 05/04/2025 noted for peptic ulcer disease and sahara esophagitis. Patinet will require Protonix 40 mg BID for 3-6 months, Reglan for 3-6 months, and Fluconazole for total of 21 days. Leukocytosis imrorved likely reactive given DKA and pancreatitis. Blood Cultures Negative. HIV negative. - The patient's plan was discussed with attending Dr. Cedric Long MD PGY2 Internal Medicine DS: Providers Provider Date of admission: 05/03/25 05:36 Primary care physician: Physician No Primary/Family Admitting Provider: Sherrie Yu MD Attending Provider on Admission: Duarte Steele MD Consults: 05/03/25 02:31 Referral Registered Dietitian Routine Comment: 05/03/25 06:04 Consult to Gastroenterology Routine Comment: Consulting Provider: Melonie Gillespie 05/03/25 09:33 Health Equity Referral - Nutrition Routine Comment: Positive screening for nutrition needs. Health Equity Referral - Utilities Routine Comment: Positive screening for utility assistance needs. Attending Provider on DC: Duarte Steele MD Discharging Provider: Duarte Steele MD DS: Diagnosis Problem List Completed Was Problem List Reviewed/Reconciled?: Yes Hospital Course Hospital Course Hospital course: 55-year-old female with poorly controlled type 1 diabetes, recurrent DKA, hepatitis C, and methamphetamine use presented with acute abdominal pain, intractable nausea, and hematemesis following recent alcohol intake, admitted to ICU for DKA and acute pancreatitis. In the ED, vitals showed tachycardia HR 102-110 bpm, tachypnea 21?26 and soft blood pressure 70?80/40?50 before fluids. Initial laboratory workup remarkable for leukocytosis WBC 20.3 with neutrophil predominance, borderline thrombocytosis 441 PLT, gross abnormalities on the CHEM panel?hyperkalemia 6.8, glucose 1438, anion gap 33, bicarb <10 with ABG pH 7.16 and CO2 24, BHB > 6.4, lactic acid 5.8, RFT: BUN 49 CR 4.1 (baseline 0.5?0.7) and GFR 12, and hyperphosphatemia 10.3. Lipase level noted to be 1146 and Pro-Milan 1.43. Pending urinalysis and urine tox result. On imaging, CT abdomen pelvis showed significant edema surrounding pancreas, malignancy ruled out. Started on DKA protocol. She was given 3 L IVF bolus in the ED, and started on Protonix drip 80 mg over 10 hours. In the ICU patient had anion gap closed twice and lactic acidosis resolve with IV fluids and insulin regiment. She was downgraded to floors with lactic acidosis resolution and closure of anion gap twice. Her hematemesis deserved an EGD which revealed sahara esophagitis and esophageal ulcers treated with flucanozole. US liver was negative for acute findings. Her diabetes was managed with insulin sliding scale. Her pancreatitis resolved with IV fluids, morphine pain control. With resolution of pain symptoms, patient was tolerating diet, was counseled on diabetes management, patient deemed safe to discharge. Discharge Instructions: ? We have changed your insulin dose. Take long-acting 30 units once daily and lispro 10 units 15 minutes before meals. ? Monitor your blood glucose and if it is less than 150 skip your dose of short acting insulin. - You have been started on Fluconazole for sahara in your esophagus ? You have been started on medication metoclopramide for diabetic gastroparesis. ? You have been started on pantoprazole 40 twice daily for your esophageal ulcers. - Follow a bland diet for your esophagel ulcers. NO spicy food or salsa - Follow up with your Primary doctor for a Hepatitis B vaccine - Follow with GI Dr. Gillespie for your Hepatitis C within 2 weeks. Get a referal from [facility]/ your primary doctor - Follow up with your primary care physician within 1 week of discharge. If you do not have a primary care physician, please follow up with the [facility] Residents clinic ([phone]) ? If you experience any new, worsening or persistent symptoms either call your primary doctor, or dial 911 or present to the emergency department. #SIRS most likely 2/2 DKA and pancreatitis - resolved #DKA - resolved #HAGMA - resolved #Lactic acidosis #Acute pancreatitis #Hematemesis 2/2 #Sahara esophagitis #T2DM #Hx of hep C Patient's plan and care discussed with my attending, Dr. Steele, and supervising resident MD Jean Marie Jose MD Internal Medicine PGY-1 Status at Discharge Functional status at discharge: independent ambulation Overall status at discharge: patient is back to baseline Time Spent with Patient Time attestation: Total time spent providing and/or coordinating discharge services: 33 min Time spent: Greater than 30 minutes Exam Vital Signs Temp Pulse Resp BP Pulse Ox O2 Del Method O2 Flow Rate 97.6 F 83 17 131/69 H 96 Room Air 3 05/05/25 16:00 05/05/25 16:00 05/05/25 16:00 05/05/25 16:00 05/05/25 16:00 05/05/25 16:00 05/04/25 19:58 Narrative Exam GEN: AOx3, able to speak full sentences HEENT: NC/AC, PERRLA, oral mucosa dry with poor dentition, neck supple CVS: RRR, systolic murmur in the pulmonary area -S2 present, - JVD RESP: CTAB GI: soft,non distended, diffuse tenderness however no rigidity or skin rash. MSK: able to move all 4 limbs, trace lower extremity edema SKIN: warm and dry ABRASIVE GRINDER: CN II-XII and Sensation grossly intact. Discharge Plan Plan Patient Disposition: HOME (Self Care) Patient condition on transfer: Stable Care Plan Goals: ? We have changed your insulin dose. Take long-acting 30 units once daily and lispro 10 units 15 minutes before meals. ? Monitor your blood glucose and if it is less than 150 skip your dose of short acting insulin. - You have been started on Fluconazole for sahara in your esophagus ? You have been started on medication metoclopramide for diabetic gastroparesis. ? You have been started on pantoprazole 40 twice daily for your esophageal ulcers. - Follow a bland diet for your esophagel ulcers. NO spicy food or salsa - Follow up with your Primary doctor for a Hepatitis B vaccine - Follow with GI Dr. Gillespie for your Hepatitis C within 2 weeks. Get a referal from [facility]/ your primary doctor - Follow up with your primary care physician within 1 week of discharge. If you do not have a primary care physician, please follow up with the [facility] Residents clinic ([phone]) ? If you experience any new, worsening or persistent symptoms either call your primary doctor, or dial 911 or present to the emergency department. Prescriptions/Referrals Prescriptions/Med Rec: New insulin degludec 200 unit/mL (3 mL) insulin pen 30 unit subcut QDAY 30 Days Qty: 4.5 2RF (DME) pen needle, diabetic [1st Tier Unifine Pentips] 31 gauge x 3/16 needle See Rx Instructions .Route Qty: 100 0RF Rx Instructions: As directed glucagon 3 mg/actuation spray,non-aerosol 3 mg intranasal [id number] PRN (Reason: hypoglycemia) Qty: 2 0RF pantoprazole 40 mg tablet,delayed release (DR/EC) 40 mg PO BID 30 Days Qty: 60 1RF metoclopramide HCl [Reglan] 5 mg tablet 5 mg PO Q6H 30 Days Qty: 120 0RF (DME) Truetest Test Strips Strip See Rx Instructions .Route Qty: 100 0RF Rx Instructions: As directed (DME) blood-glucose meter [True Metrix Glucose Meter] [facility] See Rx Instructions .Route Qty: 1 0RF Rx Instructions: As directed (DME) lancets [Accu-Chek Softclix Lancets] [facility] See Rx Instructions .Route Qty: 200 0RF Rx Instructions: As directed fluconazole 200 mg tablet 200 mg PO QDAY 20 Days Qty: 20 0RF hydrocodone-acetaminophen 5-325 mg tablet 1 tab PO BID MDD 4 PRN (Reason: pain) 2 Days Qty: 4 0RF insulin aspart U-100 [Novolog FlexPen U-100 Insulin] 100 unit/mL (3 mL) insulin pen 10 unit subcut TIDWMEAL 30 Days Qty: 15 2RF Continued (DME) Accu-Chek Evelyn Plus test strp Strip See Rx Instructions .Route Qty: 100 0RF Rx Instructions: As directed Discontinued (DME) pen needle, diabetic [BD Ultra-Fine Micro Pen Needle] 32 gauge x 1/4 needle See Rx Instructions .Route Qty: 100 0RF Rx Instructions: As directed Pranav N 40 unit subcut QAM Patient Comments: Pt purchases Insulin at [facility] with no prescription. Novalin R See Rx Instructions subcut .COMPLEX Patient Comments: 2-3 times a day depending what pt eats, Pt purchases insulin at [facility] with no prescription Rx Instructions: subcutaneously sliding scale; Referrals: [facility] [Outside] Melonie Gillespie MD [Physician, Gastroenterology] No Primary/Family,Physician [Primary Care Provider] Patient/Caregiver Discharge Instructions Discharge Activity: activity as tolerated Education Materials: Insulin Degludec injection, Esophageal Ulcer, Hypoglycemia (Low Blood Sugar), Pancreatitis Acute Dc, Diabetic Ketoacidosis, ED Diet, [place] (Adult), ED Diabetic Gastroparesis Print Language: Mongolian Stand Alone Forms: Consuelo Award Info., Patient Portal Info Letter Discharge Order Discharge Orders: Discharge (Routine); Ordered 05/05/25 Ordered By: Terry Hernández Quality Discharge Quality Measures VTE prophylaxis MD Attestestation MD Attestation I have seen and examined the patient. I was physically present for the ojeda portions of the services provided including history, physical exam, diagnosis, treatment plans and orders. I agree with assessment and plan of care as documented by residents. Even though this this note was carefully revised there may still be minor errors in food service utility worker due to voice recognition software. Duarte Steele MD
[2025-05-05] MEDS: INSULIN LISPRO (AdmeLOG) 1 UNIT/0.01 ML UNIT 10 UNIT SC (17:31)
== END 2025-05-05 18:00 | disposition home or self-care (01) | DRG 637 ==
LOC: SERX 05:30 → SERHOLD 06:19 → S2SX 08:51 → S3SX 05-04 05:32
PROVIDERS: Nurse Practitioner Family; Specialist; Student in an Organized Health Care Education/Training Program; Admitting Provider Student in an Organized Health Care Education/Training Program; Emergency Provider Emergency Medicine; Visit Provider Student in an Organized Health Care Education/Training Program
PROC: 0DJ08ZZ Inspection of Upper Intestinal Tract, Via Natural or Artificial Opening Endoscopic (ICD-10-PCS; CPT 43239; principal; 2025-05-04 19:00)
DX: E10.10 Type 1 diabetes mellitus with ketoacidosis without coma (principal); K22.11 Ulcer of esophagus with bleeding; K85.90 Acute pancreatitis without necrosis or infection, unspecified; K92.0 Hematemesis; N17.9 Acute kidney failure, unspecified; B37.81 Candidal esophagitis; E83.39 Other disorders of phosphorus metabolism; B19.20 Unspecified viral hepatitis C without hepatic coma; F17.290 Nicotine dependence, other tobacco product, uncomplicated; I95.9 Hypotension, unspecified; E87.5 Hyperkalemia; F15.10 Other stimulant abuse, uncomplicated; K27.9 Peptic ulcer, site unspecified, unspecified as acute or chronic, without hemorrhage or perforation; K76.0 Fatty (change of) liver, not elsewhere classified; K80.20 Calculus of gallbladder without cholecystitis without obstruction; A59.9 Trichomoniasis, unspecified; D75.839 Thrombocytosis, unspecified; Z79.4 Long term (current) use of insulin; Z91.148 Patient's other noncompliance with medication regimen for other reason
CPT/HCPCS: 36415; 36600; 51702; 71045; 74176; 76705; 80053; 80061; 80069; 80307; 81001; 81025; 82010; 82043; 82570; 82803; 83036; 83605; 83690; 83735; 84100; 84145; 84295; 84443; 84702; 85025; 86703; 86705; 86706; 86803; 86850; 86900; 86901; 87040; 87081; 87340; 93005; 93225; 94640; 96361; 96365; 96366; 96375; 99291; 99292; A4314; A4649; J0612; J0692; J1200; J1644; J1815; J2250; J2354; J2405; J2470; J2543; J2765; J3010; J3373; J3475; J3480; J3490; J7030; J7042; J7050; J7120; J7121; J7999; A9270

== ENCOUNTER 2025-06-15 20:42 | Inpatient (IN) | payer SELFPAY ==
[2025-06-15 20:44] VITALS: BMI 27.2
[2025-06-15 21:02] VITALS: BP 99/65; PULSE 129; RESP 28; TEMP 36.6; O2SAT 96
--- NOTE | 2025-06-15 21:08 | EDNOTE_ITS ---
ED Abdominal Pain RME/HPI General Chief Complaint: Abdominal Pain Stated complaint: ABD PAIN NV Time seen by provider: 06/15/25 21:39 Arrival date/time: 06/15/25 20:42 RME / HPI RME / HPI narrative: See MDM for Dr. Araiza's HPI documentation. Related Data Previous Rx's ?Medication ?Instructions ?Recorded blood sugar diagnostic (Accu-Chek #100 ea 08/07/22 Evelyn Plus test strips) blood sugar diagnostic (Truetest #100 ea 05/05/25 Test Strips) blood-glucose meter (True Metrix #1 ea 05/05/25 Glucose Meter) glucagon 3 mg/actuation nasal spray 3 mg intranasal Q5 MINX3 PRN 05/05/25 hypoglycemia #2 ea insulin aspart U-100 100 unit/mL 10 unit (0.1 mL) subc ut TIDWMEAL 1 05/05/25 (3 mL) subcutaneous pen (Novolog month #15 mL FlexPen U-100 Insulin aspart) insulin degludec 200 unit/mL (3 30 unit (0.15 mL) subc ut QDAY 1 05/05/25 mL) subcutaneous pen month #4.5 mL lancets (Accu-Chek Softclix #200 ea 05/05/25 Lancets) pantoprazole 40 mg tablet,delayed 40 mg PO BID 1 month #60 tabs 05/05/25 release pen needle, diabetic 31 gauge x #100 ea 05/05/25 3/16 (1st Tier Unifine Pentips) Allergies Allergy/AdvReac Type Severity Reaction Status Date / Time codeine Allergy Mild Vomiting Verified 06/15/25 20:48 Review of Systems Review of Systems Systems Reviewed: All systems reviewed, normal except as documented Past Medical History Past Medical History NEUROLOGIC: Positive Cerebrovascular Accident; Negative Seizures CARDIAC: Negative Congestive Heart Failure RESPIRATORY: Negative Chronic Obstructive Pulmonary Disease (COPD) GASTROINTESTINAL: Negative Gastrointestinal Disorders GENITOURINARY: Negative Renal Disease ENDOCRINE: Positive Endocrine Disorders and Diabetes Mellitus Type 1; Negative Diabetes Mellitus Type 2 PSYCHO/SOCIAL: Positive Psychiatric Problems, Recreational Drug Use and Anxiety OTHER HISTORY: Positive Chicken Pox and Hepatitis C (2011); Negative Blood Transfusions or Anesthesia Reactions Surgical History SURGICAL: Positive Tonsillectomy and Tubal Ligation Social History SMOKING STATUS: Never smoker SECOND HAND EXPOSURE: No SUBSTANCE USE: former substance user, IV drugs and methamphetamine ED Exam Narrative Physical exam: See MDM for Dr. Araiza's physical exam documentation. Course Quality Measures none Orders Category Date Time Status Admit to Inpatient Status Routine Admission 06/16/25 01:07 Active Patient Condition Routine Admission 06/16/25 01:07 Ordered Activity as Tolerated Routine Care 06/16/25 01:10 Ordered Bedside Blood Glucose ACHS Care 06/16/25 01:11 Active Bedside COVID-19 Antigen Test NOW Care 06/15/25 21:09 Completed Bedside Influenza A&B Antigen Test NOW Care 06/15/25 21:09 Completed Blood glucose [Bedside Blood Glucose] NOW Care 06/15/25 21:04 Completed COVID-19 Screening Questionnaire NOW Care 06/16/25 00:41 Completed Continuous Pulse Oximetry NOW Care 06/16/25 01:11 Completed Decision to Admit X1 Care 06/16/25 00:41 Completed EKG (ED ONLY) *Do not use* NOW Care 06/15/25 21:11 Completed Miscellaneous Nursing Order NOW Care 06/16/25 00:44 Completed Miscellaneous Nursing Order NOW Care 06/16/25 01:05 Completed Miscellaneous Nursing Order NOW Care 06/16/25 01:05 Completed Notify provider NEEDED Care 06/16/25 01:07 Active Saline [Insert IV] NOW Care 06/15/25 21:09 Active Straight [In and Out Catheter] X1 Care 06/15/25 21:09 Completed Strict Intake and Output Routine Care 06/16/25 01:09 Ordered Diet Carbohydrate Consistent Diet 06/16/25 Breakfast Active EKG (ED Only) Stat Exams 06/15/25 21:11 Draft XR chest 1V portable Stat Exams 06/15/25 21:11 Completed ABG [Arterial Blood Gas] Stat Lab 06/15/25 23:00 Completed Alcohol, Blood Medical Stat Lab 06/15/25 21:25 Completed Amylase Stat Lab 06/15/25 21:25 Completed BMP [Basic Metabolic Panel] Stat Lab 06/15/25 23:46 Completed BNP [B-Type Natriuretic Peptide] Stat Lab 06/15/25 21:25 Completed Beta Hydroxybutyrate Stat Lab 06/15/25 21:25 Completed Bilirubin,Direct Stat Lab 06/15/25 21:25 Completed Blood Culture (Lab) Stat Lab 06/15/25 21:25 Results CBC AM DRAW Lab 06/16/25 04:35 Completed CBC AM DRAW Lab 06/17/25 05:00 Ordered CBC AM DRAW Lab 06/18/25 05:00 Ordered CBC AM DRAW Lab 06/19/25 05:00 Ordered CBC AM DRAW Lab 06/20/25 05:00 Ordered CBC AM DRAW Lab 06/21/25 05:00 Ordered CBC AM DRAW Lab 06/22/25 05:00 Ordered CBC AM DRAW Lab 06/23/25 05:00 Ordered CBC AM DRAW Lab 06/24/25 05:00 Ordered CBC AM DRAW Lab 06/25/25 05:00 Ordered CBC AM DRAW Lab 06/26/25 05:00 Ordered CBC Stat Lab 06/15/25 21:25 Completed CK [Creatine Kinase] Stat Lab 06/15/25 21:25 Completed CMP [Comprehensive Metabolic Panel] Stat Lab 06/15/25 21: Completed CRP [C-Reactive Protein] Stat Lab 06/15/25 21:25 Completed Comprehensive Metabolic Panel AM DRAW Lab 06/16/25 04:35 Completed Comprehensive Metabolic Panel AM DRAW Lab 06/17/25 05:00 Ordered Comprehensive Metabolic Panel AM DRAW Lab 06/18/25 05:00 Ordered Comprehensive Metabolic Panel AM DRAW Lab 06/19/25 05:00 Ordered Comprehensive Metabolic Panel AM DRAW Lab 06/20/25 05:00 Ordered Comprehensive Metabolic Panel AM DRAW Lab 06/21/25 05:00 Ordered Comprehensive Metabolic Panel AM DRAW Lab 06/22/25 05:00 Ordered Comprehensive Metabolic Panel AM DRAW Lab 06/23/25 05:00 Ordered Comprehensive Metabolic Panel AM DRAW Lab 06/24/25 05:00 Ordered Comprehensive Metabolic Panel AM DRAW Lab 06/25/25 05:00 Ordered Comprehensive Metabolic Panel AM DRAW Lab 06/26/25 05:00 Ordered Drug Screen,Urine Stat Lab 06/15/25 22:18 Completed ESR [Sed Rate (ESR)] Stat Lab 06/15/25 21:25 Completed HCG,Qualitative Serum Stat Lab 06/15/25 21:25 Completed Hemoglobin A1C [Glycohemoglobin w (eAG)] Stat Lab 06/15/25 21:25 Completed Lactate (Lactic Acid) Stat Lab 06/15/25 21:25 Completed Lactic Acid, 3 HR Stat Lab 06/16/25 00:05 Completed Lipase Stat Lab 06/15/25 21:25 Completed Magnesium AM DRAW Lab 06/16/25 04:35 Completed Magnesium AM DRAW Lab 06/17/25 05:00 Ordered Magnesium AM DRAW Lab 06/18/25 05:00 Ordered Magnesium AM DRAW Lab 06/19/25 05:00 Ordered Magnesium AM DRAW Lab 06/20/25 05:00 Ordered Magnesium AM DRAW Lab 06/21/25 05:00 Ordered Magnesium AM DRAW Lab 06/22/25 05:00 Ordered Magnesium AM DRAW Lab 06/23/25 05:00 Ordered Magnesium AM DRAW Lab 06/24/25 05:00 Ordered Magnesium AM DRAW Lab 06/25/25 05:00 Ordered Magnesium AM DRAW Lab 06/26/25 05:00 Ordered Magnesium Stat Lab 06/15/25 21:25 Completed Phosphorous AM DRAW Lab 06/17/25 05:00 Ordered Phosphorous AM DRAW Lab 06/18/25 05:00 Ordered Phosphorous AM DRAW Lab 06/19/25 05:00 Ordered Phosphorous AM DRAW Lab 06/20/25 05:00 Ordered Phosphorous AM DRAW Lab 06/21/25 05:00 Ordered Phosphorous AM DRAW Lab 06/22/25 05:00 Ordered Phosphorous AM DRAW Lab 06/23/25 05:00 Ordered Phosphorous AM DRAW Lab 06/24/25 05:00 Ordered Phosphorous AM DRAW Lab 06/25/25 05:00 Ordered Phosphorous AM DRAW Lab 06/26/25 05:00 Ordered Phosphorous AM DRAW Lab 06/27/25 05:00 Ordered Procalcitonin Stat Lab 06/15/25 21:25 Completed TSH [Thyroid Stimulating Hormone] Stat Lab 06/15/25 21:25 Completed Troponin I Stat Lab 06/15/25 21:25 Completed UA, C/S IF [Urinalysis, C/S if Indicated] Stat Lab 06/15/25 22:18 Completed VBG [Venous Blood Gas] Stat Lab 06/15/25 23:47 Completed Acetaminophen Tab [Tylenol Tab] Med 06/16/25 01:11 Active 650 mg PO Q6H PRN Dextrose 50% Syr [D50w Syringe Abboject] Med 06/16/25 01:11 Active 25 ml IV Q15MIN PRN Dextrose 50% Syr [D50w Syringe Abboject] Med 06/16/25 01:11 Active 50 ml IV Q15MIN PRN Glucagon Inj Med 06/16/25 01:11 Active 1 mg IM Q15MIN PRN Heparin Inj Med 06/16/25 01:15 Discontinued 5,000 unit SC Q12H INSULIN LISPRO (AdmeLOG) [HumaLOG] Med 06/16/25 07:30 Discontinued See Protocol SC AC Insulin Degludec Inj Med 06/16/25 21:00 Discontinued 30 unit SC HS Insulin Degludec Inj Med 06/16/25 00:42 Discontinued 30 unit SC X1 ONE Insulin Reg 100 Units/100 ml [Myxredlin] Med 06/15/25 21:10 Active 100 unit in 100 ml IV 0.1 unit/kg/hr Insulin Regular Med 06/15/25 21:09 Discontinued 10 unit IV X1 ONE Ondansetron Inj [Zofran Inj] Med 06/16/25 01:11 Active 4 mg IVP Q6H PRN Ondansetron Inj [Zofran Inj] Med 06/15/25 21:09 Discontinued 4 mg IVP X1 ONE Pantoprazole Inj [Protonix Inj] Med 06/16/25 09:00 Discontinued 40 mg IVP QDAY Ringers Lactated 1000 ml [Lactated Ringers] 1,000 ml Med 06/15/25 21:09 Discontinued IV 1,000 mls/hr Ringers Lactated 1000 ml [Lactated Ringers] 1,000 ml Med 06/16/25 01:12 Discontinued IV 100 mls/hr Sodium Chloride 0.9% 1000 ml [Ns] 1,000 ml Med 06/15/25 22:39 Discontinued IV 999 mls/hr Code Status Routine Oth 06/16/25 01:05 Ordered Oxygen Delivery PRN RT 06/16/25 01:11 Active Vital Signs Vital signs: Vital Signs Temperature 97.9 F 06/15/25 21:02 Pulse Rate 129 H 06/15/25 21:02 Respiratory Rate 28 H 06/15/25 21:02 Blood Pressure 99/65 06/15/25 21:02 Pulse Oximetry (%) 96 06/15/25 21:02 Oxygen Delivery Method Room Air 06/15/25 21:02 Abdominal Pain MDM MDM Narrative MDM Narrative:: This section includes all my notes and documentations, including HPI, PE, and ED course. Javy Araiza MD HPI: 55-year-old female with type I DM here with about 24-hour history of vomiting and severe malaise and fatigue and vague abdominal pain. No other complaints. ROS: All negative except as documented in HPI. Physical Exam: General: Alert and oriented. Appearance of severe malaise noted. Eyes: Conjunctivae and lids clear. ENT: No nasal congestion. Neck: Supple. Heart: RRR. Lungs: No respiratory distress. Good air movement. No rhonchi, wheezing, rales. Abdomen: Soft and nontender. Normal bowel sounds. No distension. No rebound or guarding. Back: No CVA tenderness. Skin: Warm and dry. Neuro: Alert and oriented X 3. I reviewed all diagnostic test results. My interpretation of the EKG is sinus tachycardia with nonspecific ST-T changes. My interpretation of the chest x-ray is NAD. Blood tests remarkable for ESR 35, Na 129, Cl 87, Anion Gap 23, Glucose 586, Lactic Acid 4.4, Ca 13, CRP 2.2, Beta Hydroxybutyrate >6.4. ABG showed pH 7.36, pCO2 36, HCO3 20. UA unremarkable. UDS positive for methamphetamine. At this point, diagnoses include: DKA Methamphetamine use Treatment here included: IVF Zofran 4 mg IV Insulin bolus and drip Some improvement noted. I discussed the case with our ICU service. About the presentation and exam and diagnostics and treatments here. And need of further care in the hospital. Will accept the patient. Javy Araiza MD Patient data External records reviewed:: [facility] previous records (Per chart review, patient was admitted here on 05/03/25 for acute pancreatitis.) Clinical information provided by:: patient Social determinants that could affect healthcare access:: none Patient has the following chronic illnesses:: DMI, hepatitis C How is presenting disease/condition affected by chronic disease/condition?: exacerbated by Evaluation data The following diagnostics were reviewed and interpreted by me:: lab results, radiology exam(s) and EKG tracing(s) (My interpretation of the EKG is: Sinus tachycardia (125 bpm) with nonspecific ST-T changes. Javy Araiza MD) Lab and/or radiology exams considered but not ordered:: none Interpretation Summary: I reviewed all diagnostic test results. My interpretation of the EKG is sinus tachycardia with nonspecific ST-T changes. My interpretation of the chest x-ray is NAD. Blood tests remarkable for ESR 35, Na 129, Cl 87, Anion Gap 23, Glucose 586, Lactic Acid 4.4, Ca 13, CRP 2.2, Beta Hydroxybutyrate >6.4. ABG showed pH 7.36, pCO2 36, HCO3 20. UA unremarkable. UDS positive for methamphetamine. Medications / Prescriptions Medications or Prescriptions considered but not ordered:: none Medication administrations:: Medication Administration History Acetaminophen (Acetaminophen 325 Mg Tablet) 650 mg PO Q6H PRN PRN Reason: Fever >101.5 or pain 1-3 Stop: 07/16/25 01:10 Dextrose (Dextrose 50%-Water Inj 50 Ml Syringe) 25 ml IV Q15MIN PRN PRN Reason: BG 50-70 responsive npo pt Stop: 07/16/25 01:10 Dextrose (Dextrose 50%-Water Inj 50 Ml Syringe) 50 ml IV Q15MIN PRN PRN Reason: BG <50 OR BG <70 & pt unresponsive Stop: 07/16/25 01:10 Glucagon (Glucagon Inj 1 Mg Vial) 1 mg IM Q15MIN PRN PRN Reason: BG <70, and no IV access Heparin Sodium (Porcine) (Heparin Sod Inj 5000 Unit/Ml Vial) 5,000 unit SC Q12HR [facility] Stop: 06/30/25 01:14 Last Admin: 06/16/25 20:57 Dose: 5,000 unit Documented By: ZULAY Co-signed By: KAREN Insulin Human Regular (Myxredlin) 100 unit in 100 mls @ 6.759 mls/hr IV .[id number] PRN; Protocol PRN Reason: PER PROTOCOL Stop: 07/15/25 21:09 Last Titration: 06/16/25 02:02 Dose: Infused Documented By: KITA Co-signed By: SAYRA Titration: 06/16/25 01:27 Dose: 0.05 unit/kg/hr, 3.379 mls/hr Documented By: KITA Co-signed By: VALERY Titration: 06/16/25 00:24 Dose: 0.1 unit/kg/hr, 6.759 mls/hr Documented By: VALERY Co-signed By: KITA Admin: 06/15/25 23:18 Dose: 0.1 unit/kg/hr, 6.759 mls/hr Documented By: KITA Co-signed By: SE Influenza Virus Vaccine Quadrival (Influenza Virus 0.5 Ml Syringe ) 0.5 ml IMi .ONCE ONE Stop: 06/17/25 06:01 Insulin Degludec (Insulin Degludec 5 Unit/0.05 Ml (Per 5 Units)) 40 unit SC HS [facility] Stop: 07/16/25 20:59 Last Admin: 06/16/25 20:57 Dose: 40 unit Documented By: ZULAY Co-signed By: KAREN Insulin Human Lispro (Insulin Lispro (Admelog) 1 Unit/0.01 Ml Unit) 0 unit SC AC [facility]; Protocol Stop: 07/16/25 07:29 Last Admin: 06/16/25 17:18 Dose: 4 unit Documented By: MIKE Co-signed By: AZAR Admin: 06/16/25 12:12 Dose: 4 unit Documented By: MIKE Co-signed By: AZAR Admin: 06/16/25 07:59 Dose: 5 unit Documented By: MIKE Co-signed By: LOBITO Ondansetron HCl (Ondansetron Inj 2 Mg/Ml Inj 2 Ml) 4 mg IVP Q6H PRN; Protocol PRN Reason: NAUSEA OR VOMITING Stop: 07/16/25 01:10 Pantoprazole Sodium (Pantoprazole Inj 40 Mg Vial) 40 mg IVP BID [facility] Stop: 07/16/25 08:59 Last Admin: 06/16/25 20:58 Dose: 40 mg Documented By: Admin: 06/16/25 09:29 Dose: 40 mg Documented By: MIKE Pharmacy Consult (Pharmacy To Consult Pneumovacc) 1 each XX PRN PRN PRN Reason: CONSULT Stop: 07/17/25 05:59 Sennosides (Senna/Docusate Sod 1 Tab Tablet) 1 tab PO QDAY PRN; Protocol PRN Reason: CONSTIPATION Stop: 07/16/25 01:49 Thiamine HCl (Thiamine Inj 100 Mg/Ml Vial 2 Ml) 100 mg IVP QDAY [facility] Stop: 07/16/25 10:14 Last Admin: 06/16/25 11:23 Dose: 100 mg Documented By: MIKE Discontinued Medications Heparin Sodium (Porcine) (Heparin Sod Inj 5000 Unit/Ml Vial) 5,000 unit SC Q12H [facility] Stop: 06/30/25 01:14 Last Admin: 06/16/25 12:57 Dose: 5,000 unit Documented By: MIKE Co-signed By: LOBITO Admin: 06/16/25 01:55 Dose: 5,000 unit Documented By: KITA Co-signed By: JERMAINE Lactated Ringer's (Lactated Ringers) 1,000 mls @ 1,000 mls/hr IV .Q1H ONE Stop: 06/15/25 22:08 Last Infusion: 06/15/25 23:25 Dose: Infused Documented By: Admin: 06/15/25 22:18 Dose: 1,000 mls/hr Documented By: KITA Sodium Chloride (Ns) 1,000 mls @ 999 mls/hr IV .Q1H1M ONE Stop: 06/15/25 23:39 Last Infusion: 06/16/25 00:26 Dose: Infused Documented By: Admin: 06/15/25 23:14 Dose: 999 mls/hr Documented By: KITA Lactated Ringer's (Lactated Ringers) 1,000 mls @ 100 mls/hr IV .Q10H ONE Stop: 06/16/25 11:11 Last Admin: 06/16/25 02:00 Dose: Not Given Documented By: KITA Non-Admin Reason: Discontinued Lactated Ringer's (Lactated Ringers) 1,000 mls @ 150 mls/hr IV .Q6H40M ONE Stop: 06/16/25 07:51 Last Admin: 06/16/25 01:56 Dose: 150 mls/hr Documented By: KITA Lactated Ringer's (Lactated Ringers) 1,000 mls @ 125 mls/hr IV .Q8H [facility] Stop: 06/17/25 00:06 Last Admin: 06/16/25 17:19 Dose: 125 mls/hr Documented By: Infusion: 06/16/25 17:19 Dose: Infused Documented By: Admin: 06/16/25 09:26 Dose: 125 mls/hr Documented By: MIKE Magnesium Sulfate (Magnesium Sulfate Ivpb) 4 gm in 50 mls @ 12.5 mls/hr IV X1 ONE Stop: 06/16/25 12:10 Last Admin: 06/16/25 09:26 Dose: 12.5 mls/hr Documented By: MIKE Thiamine HCl 100 mg/ Sodium (Chloride) 101 mls @ 202 mls/hr IV QDAY [facility] Stop: 07/16/25 10:14 Insulin Degludec (Insulin Degludec 5 Unit/0.05 Ml (Per 5 Units)) 30 unit SC X1 ONE Stop: 06/16/25 00:43 Last Admin: 06/16/25 01:01 Dose: 30 unit Documented By: KITA Co-signed By: VALERY Insulin Degludec (Insulin Degludec 5 Unit/0.05 Ml (Per 5 Units)) 30 unit SC HS [facility] Stop: 07/16/25 20:59 Insulin Human Lispro (Insulin Lispro (Admelog) 1 Unit/0.01 Ml Unit) 0 unit SC AC [facility]; Protocol Stop: 07/16/25 07:29 Insulin Human Lispro (Insulin Lispro (Admelog) 1 Unit/0.01 Ml Unit) 6 unit SC X1 ONE Stop: 06/16/25 08:19 Last Admin: 06/16/25 09:26 Dose: 6 unit Documented By: MIKE Co-signed By: TEGAN Insulin Human Regular (Insulin Hum Regular 1 Unit/0.01 Ml (Per Unit)) 10 unit IV X1 ONE Stop: 06/15/25 21:10 Last Admin: 06/15/25 22:24 Dose: 10 unit Documented By: KITA Co-signed By: Nicotine (Nicotine Patch 7 Mg/24 Hr Patch.Td24) 7 mg TOP X1 ONE Stop: 06/16/25 02:56 Last Admin: 06/16/25 04:29 Dose: 7 mg Documented By: MANUEL Ondansetron HCl (Ondansetron Inj 2 Mg/Ml Inj 2 Ml) 4 mg IVP X1 ONE; Protocol Stop: 06/15/25 21:10 Last Admin: 06/15/25 22:20 Dose: 4 mg Documented By: KITA Pantoprazole Sodium (Pantoprazole Inj 40 Mg Vial) 40 mg IVP QDAY [facility] Stop: 07/16/25 08:59 Pneumococcal Polyvalent Vaccine (Pneumoc 20 Vaccine 0.5 Ml Syringe) 0.5 ml IMi .ONCE ONE Stop: 06/16/25 09:01 Treatment here FROM ME included: IVF Zofran 4 mg IV Insulin bolus and drip Consultations Consultation(s) initiated? (list below): Yes Consultation #1 (Physician, Specialty, Details): I discussed the case with our ICU service. About the presentation and exam and diagnostics and treatments here. And need of further care in the hospital. Will accept the patient. Diagnosis Differential diagnosis abdominal pain: other (DKA, dehydration, sepsis, electrolyte abnormalities) Most likely diagnosis given after review of the tests above:: DKA Admission Indicated Admission indicated?: indicated Explain why admission is indicated or not indicated:: DKA Admission Request Was there a request for admission?: Yes Admission Attestation Admission request attestation: I discussed the case with our ICU service. About the presentation and exam and diagnostics and treatments here. And need of further care in the hospital. Will accept the patient. Disposition Plan Disposition Plan: Admit Critical Care Time Critical Care Time Critical Care Time: Yes Total Critical Care Time (min.): 45 Attestation: Due to a high probability of clinically significant, life threatening deterioration, the patient required my highest level of preparedness to intervene emergently and I personally spent this critical care time directly and personally managing the patient. This critical care time included obtaining a history; examining the patient; ordering and review of studies; arranging urgent treatment with development of a management plan; evaluation of patient's response to treatment; frequent reassessment; and discussions with family and other providers. It was exclusive of separately billable procedures and treating other patients and teaching time. Javy Araiza MD Discharge Plan Plan Patient Disposition: Admit Acute Care w/in Hospital Problem List Clinical Impression: DKA (diabetic ketoacidosis)
--- NOTE | 2025-06-15 21:11 | EKG_ITS ---
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
--- NOTE | 2025-06-15 21:11 | XR_ITS ---
EXAMINATION: AP chest single view TECHNIQUE: AP portable upright chest single view Date and time: June 15, 2025, 0940 hours INDICATIONS: Shortness of breath today. FINDINGS: No significant cardiac enlargement No pneumonia or pulmonary edema. Moderate osteopenia IMPRESSION: No pneumonia or pulmonary edema
[2025-06-15 21:38] LABS: Basophils # (Auto) 0.1 Thou/mm3 (0.0-0.2); Basophils % (Auto) 1 % (0-2.5); Eosinophils # (Auto) 0.0 Thou/mm3 (0.0-0.5); Eosinophils % (Auto) 0 % (0-10); Hematocrit 46.5 % (36.0-46.0); Hemoglobin 15.4 g/dL (12.0-16.0); Immature Granulocytes Auto 0.04 Thou/mm3 (0.00-0.00); Lymphocytes # (Auto) 2.4 Thou/mm3 (1.0-4.8); Lymphocytes % (Auto) 25 % (10-50); Mean Corpuscular HGB Conc 33.1 g/dl (31.0-37.0); Mean Corpuscular Hemoglobin 29.4 pg (25.0-35.0); Mean Corpuscular Volume 89 fL (80-100); Monocytes # (Auto) 0.6 Thou/mm3 (0.0-0.8); Monocytes % (Auto) 7 % (0-12); Neutrophils # (Auto) 6.4 Thou/mm3 (1.8-7.7); Neutrophils % (Auto) 67 % (37-80); Nucleated Red Blood Cell # 0.00 Thou/mm3 (0.00-0.00); Nucleated Red Blood Cell % 0 /100 WBC (0); Platelet Count 494 Thou/mm3 (140-440); RDW Standard Deviation 43.6 fL (36.4-46.3); Red Blood Count 5.24 Miln/mm3 (4.00-5.20); White Blood Count 9.5 Thou/mm3 (3.6-11.0)
[2025-06-15 21:39] LABS: Lactate (Lactic Acid) 4.4 mMol/L (0.4-2.0)
[2025-06-15 21:45] LABS: Sed Rate (ESR) 35 mm/hr (0-30)
[2025-06-15 21:51] LABS: Beta Hydroxybutyrate > 6.4 mmol/L (<0.6)
[2025-06-15 21:53] LABS: HCG,Qualitative Serum Negative
[2025-06-15 21:58] LABS: Glucose Estimated Average 223 mg/dL (80-131); Hemoglobin A1C 9.4 % Hgb (4.8-6.0)
[2025-06-15 21:59] LABS: B-Type Natriuretic Peptide < 20 pg/mL (0-100)
[2025-06-15 22:09] LABS: Alanine Aminotransferase 80 U/L (10-49); Albumin, Serum 5.0 gm/dL (3.5-5.0); Albumin/Globulin Ratio 1.4 (1.2-2.2); Alkaline Phosphatase 102 U/L (46-116); Amylase 33 U/L (30-118); Anion Gap 23 (7-16); Aspartate Amino Transferase 54 U/L (0-34); BUN/Creatinine Ratio 22 Ratio (12-20); Bilirubin,Direct 0.2 mg/dL (0.0-0.3); Bilirubin,Total 0.8 mg/dL (0.3-1.2); Blood Urea Nitrogen 28 mg/dL (9-23); C-Reactive Protein 2.2 mg/dL (0.0-0.9); Calcium 13.0 mg/dL (8.3-10.6); Calcium (Corrected) 13.0 mg/dL (8.5-10.1); Carbon Dioxide 19.1 mMol/L (20.0-31.0); Chloride 87 mMol/L (98-107); Creatine Kinase 20 U/L (34-171); Creatinine (Component) 1.3 mg/dL (0.6-1.3); Estimated Creatinine Clearance 44.6 mL/min (>60); Globulin 3.5 gm/dL (2.3-3.5); Lipase 29 U/L (12-53); Magnesium 1.9 mg/dL (1.6-2.6); Potassium 4.8 mMol/L (3.4-5.1); Procalcitonin 0.14 ng/ml (0.0-0.49); Sodium 129 mMol/L (136-145); Thyroid Stimulating Hormone 1.64 uIU/mL (0.55-4.78); Total Protein 8.5 gm/dL (5.7-8.2); Troponin I < 0.020 ng/mL (0.0-0.045); eGFR 49 See Note
[2025-06-15 22:10] LABS: Alcohol, Blood Medical < 3.0 mg/dL (0-10.0); Osmolality,Calculated 291 (275-295)
[2025-06-15 22:15] LABS: Glucose 586 mg/dL (74-106)
[2025-06-15] MEDS: RINGERS LACTATED 1000 ML 1,000 ML IV (22:18)
[2025-06-15] MEDS: ONDANSETRON INJ 2 MG/ML INJ 2 ML 4 MG IVP (22:20)
[2025-06-15] MEDS: INSULIN HUM REGULAR 1 UNIT/0.01 ML (PER UNIT) 10 UNIT IV (22:24)
[2025-06-15 22:28] VITALS: BP 113/75; PULSE 108; RESP 19; TEMP 36.9; O2SAT 98
[2025-06-15 22:30] LABS: Collection Type, Urine Clean Catch
[2025-06-15 22:42] LABS: Bilirubin,Urine Negative (Negative); Blood,Urine Negative (Negative); Clarity,Urine Clear (Clear/Hazy); Color,Urine Lt-Yellow (Lt Yel-Yel); Culture Indicated,Urine Not Indicated; Glucose, Urine 4+ (Negative); Ketones,Urine 4+ (Negative); Leukocyte Esterase,Urine Negative (Negative); Nitrite,Urine Negative (Negative); PH,Urine 5.5 (5.0-7.0); Protein,Urine Negative (Neg - Trace); RBC,Urine 1 /hpf (0-3); Specific Gravity,Urine 1.025 (1.001-1.035); Squamous Epithelial Cell,Urine 2 /hpf (0-5); Urobilinogen,Urine Negative mg/dL (0.0-1.0); WBC,Urine 2 /hpf (0-5)
[2025-06-15 22:46] LABS: Amphetamine/Methamp Scrn,U Positive (Negative); Barbiturate Screen,Urine Negative (Negative); Benzodiazepines Screen,Urine Negative (Negative); Benzoylecgonine Screen, Ur Negative (Negative); Fentanyl Screen,Urine Negative (Negative); Opiate Screen,Urine Negative (Negative); THC Screen,Urine Negative (Negative)
[2025-06-15] MEDS: SODIUM CHLORIDE 0.9% 1000 ML 1,000 ML 999 ML IV (23:14)
[2025-06-15 23:15] LABS: Base Excess -5 (-3-3); HCO3 20 mEq/L (20-26); Inspired Oxygen, FIO2 21 %; O2 Saturation 96 % (91-98); PCO2 36 mmHg (32.0-48.0); PO2 80 mmHg (83-108); pH, Arterial 7.36 (7.35-7.45)
[2025-06-15 23:16] LABS: Allen Test Performed/OK; Puncture Site Right Radial
[2025-06-15] MEDS: INSULIN REG 100 UNITS/100 ML 100 UNIT/100 ML BAG 6.759 UNIT IV (23:18)
[2025-06-16] VITALS (10 sets, daily range): BP systolic 95–116; BP diastolic 60–67; PULSE 81–108; RESP 15–97; TEMP 36.1–36.5; O2SAT 96–100; BMI 26.9
[2025-06-16 00:13] LABS: Base Excess, Venous -2 (-3-3); O2 Saturation, Venous 55 % (96-97); PCO2, Venous 50 mmHg (36-56); PO2, Venous 32 mmHg (15-58); pH, Venous 7.30 (7.33-7.66)
[2025-06-16 00:32] LABS: Reflex Lactate? Y
[2025-06-16 00:34] LABS: Anion Gap 17 (7-16); BUN/Creatinine Ratio 25 Ratio (12-20); Blood Urea Nitrogen 25 mg/dL (9-23); Calcium 10.6 mg/dL (8.3-10.6); Carbon Dioxide 23.1 mMol/L (20.0-31.0); Chloride 99 mMol/L (98-107); Creatinine (Component) 1.0 mg/dL (0.6-1.3); Estimated Creatinine Clearance 58.0 mL/min (>60); Glucose 261 mg/dL (74-106); Osmolality,Calculated 290 (275-295); Potassium 3.8 mMol/L (3.4-5.1); Sodium 139 mMol/L (136-145); eGFR > 60 See Note
[2025-06-16 00:36] LABS: Lactic Acid, 3 HR 2.6 mMol/L (0.4-2.0)
[2025-06-16] MEDS: INSULIN DEGLUDEC 5 UNIT/0.05 ML (PER 5 UNITS) 30 UNIT SC (01:01)
--- NOTE | 2025-06-16 01:23 | ESHP_ITS ---
<Statement entered by Fausto Enciso MD - 06/19/25 20:00> I have personally seen and examined the patient, agree with residents assessment and plan Patient plan of care was discussed with the attending physician, Dr. Aimee Enciso, PGY2 Documentation for date of: 06/16/25 HPI History of Present Illness Chief complaint: Abdominal pain and vomiting History of present illness: This patient is a 55-year-old female with a history of type 1 diabetes mellitus, hepatitis C, methamphetamine use, and peptic ulcer disease who presented to [facility] ED on 06/15 for abdominal pain and vomiting. Patient was admitted for management of starvation ketoacidosis. According to the patient, she was diagnosed with diabetes later in her adulthood and firmly believes that it is late onset type 1 diabetes mellitus. The patient previously followed with a PCP who, per the patient, did multiple labs and found that the patient did in fact have type 1 diabetes mellitus. The patient denies any other autoimmune conditions that she is aware of. The patient reports that she has had difficulty with her medical insurance for several years and has had financial hardships in addition to that. About 2 days ago, the patient ran out of her long-acting insulin and barely ate any food, however she was still able to use her short acting insulin. Sometime this afternoon, the patient started noticing that she was having abdominal pain and vomiting, which she has noted to be similar to when she previously had DKA, and so she sought medical care at [facility] ED as she thought she was in DKA. The patient was recently admitted back on 05/03 for DKA which was appropriately treated and was also found to have peptic ulcer disease and candidal esophagitis on EGD. The patient was discharged on Protonix 40 mg twice daily for 3 to 6 months, Reglan for 3 to 6 months, and fluconazole for 21 days. The patient complete her course of fluconazole and plans to still be taking her Protonix and Reglan. Patient endorses headache, constipation, and chest pain, however the chest pain resolved after being given IV fluids and insulin drip by ED physician. Patient denies fevers, chills, shortness of breath, and dysuria. ED course: Initial vitals significant for heart rate of 129 and respiratory rate of 28. Initial labs significant for sodium of 129, chloride of 87, bicarb of 19.1, BUN of 28, creatinine of 1.3, glucose of 586, lactic acid of 4.4, calcium of 13.0, AST of 54, ALT of 80, CRP of 2.2, ESR of 35, and beta hydroxybutyrate of over 6.4. ABG was drawn which showed pH of 7.36. Urine was positive for 4+ glucose, 4+ ketones, and urine toxicology was positive for methamphetamines. Patient was given 1 L of LR, 1 L of NS, 10 units of insulin regular, Zofran, and started on an insulin drip in the ED. Repeat renal panel shows resolution of electrolyte abnormalities, glucose of 261, and lactic acid of 2.6. Past Surgical History: Tubal ligation and tonsillectomy Current Medication(s): Pending med rec Allergies (w/ Reactions): NKDA, patient does endorse vomiting from codeine and ampicillin Family History: Mother had esophageal cancer and long history of smoking Alcohol Intake: Patient denies Tobacco/Vape Use: Patient currently vapes 4 times a day over the last 4 years, before that she smoked cigarettes since she was about 13 years old, about half a pack a day Other Drug Use: Patient endorses methamphetamine use, did not specify when her last use was Review of Systems Review of Systems Systems Reviewed: All systems reviewed, normal except as documented Exam Vital Signs Temp Pulse Resp BP Pulse Ox O2 Del Method 97.7 F 102 H 20 104/65 100 Room Air 06/16/25 01:05 06/16/25 01:05 06/16/25 01:05 06/16/25 01:05 06/16/25 01:05 06/16/25 01:05 Narrative Exam Physical Exam: General: Alert, no acute distress. Skin: Warm, dry, intact. Head: Normocephalic, atraumatic. Eye: Normal conjunctiva, PERRL. Throat: Oral mucosa moist. No obvious lesions in oropharynx. Cardiovascular: Regular rate and rhythm, systolic murmur best heard at cardiac apex, +S1/S2. Respiratory: Lungs are clear to auscultation, respirations unlabored, no crackles, no wheezing. Gastrointestinal: Soft, nontender, non-distended. No guarding or rebound tenderness. Extremities: No edema, no cyanosis, no clubbing. 2+ radial pulse bilaterally, 2+ pedal pulse bilaterally. Neuro: No focal deficits observed. Conversant, moving all extremities. No overt cerebellar signs/incoordination. Psychiatric: Cooperative, hyperactive affect. Results: Labs 06/17/25 05:52 06/17/25 05:52 Labs: Short CBC 06/15/25 Range/Units 21:25 WBC 9.5 (3.6-11.0) Thou/mm3 Hgb 15.4 (12.0-16.0) g/dL Hct 46.5 H (36.0-46.0) % Plt Count 494 H D (140-440) Thou/mm3 BMP 06/15/25 06/16/25 21:25 00:05 Sodium 129 L 139 D Potassium 4.8 3.8 D Chloride 87 L 99 Carbon Dioxide 19.1 L 23.1 BUN 28 H 25 H Creatinine 1.3 1.0 Glucose 586 H* 261 H D Calcium 13.0 H* 10.6 D Cardiac Enzymes 06/15/25 Range/Units 21:25 Total Creatine Kinase 20 L (34-171) U/L Troponin I < 0.020 (0.0-0.045) ng/mL Liver Function 06/15/25 Range/Units 21:25 Total Bilirubin 0.8 (0.3-1.2) mg/dL Direct Bilirubin 0.2 (0.0-0.3) mg/dL AST 54 H (0-34) U/L ALT 80 H (10-49) U/L Alkaline Phosphatase 102 (46-116) U/L Albumin 5.0 (3.5-5.0) gm/dL Urine 06/15/25 Range/Units 22:18 Urine Color Lt-Yellow (Lt Yel-Yel) Urine Clarity Clear (Clear/Hazy) Urine pH 5.5 (5.0-7.0) Ur Specific [place] 1.025 (1.001-1.035) Urine Protein Negative (Neg - Trace) Urine Glucose (UA) 4+ A (Negative) ABG Interpretation ABG results: 06/15/25 06/16/25 23:00 00:05 ABG pH 7.36 ABG pCO2 36 ABG pO2 80 L ABG HCO3 20 ABG O2 Saturation 96 ABG Base Excess -5 L VBG pH 7.30 L VBG pCO2 50 VBG pO2 32 VBG Base Excess -2 Quality Measures Quality Measures VTE prophylaxis Medications Home Medications and Allergies Allergies Allergy/AdvReac Type Severity Reaction Status Date / Time codeine Allergy Mild Vomiting Verified 06/15/25 20:48 Visit Medications Acetaminophen (Acetaminophen 325 Mg Tablet) 650 mg PO Q6H PRN PRN Reason: Fever >101.5 or pain 1-3 Stop: 07/16/25 01:10 Dextrose (Dextrose 50%-Water Inj 50 Ml Syringe) 25 ml IV Q15MIN PRN PRN Reason: BG 50-70 responsive npo pt Stop: 07/16/25 01:10 Dextrose (Dextrose 50%-Water Inj 50 Ml Syringe) 50 ml IV Q15MIN PRN PRN Reason: BG <50 OR BG <70 & pt unresponsive Stop: 07/16/25 01:10 Glucagon (Glucagon Inj 1 Mg Vial) 1 mg IM Q15MIN PRN PRN Reason: BG <70, and no IV access Heparin Sodium (Porcine) (Heparin Sod Inj 5000 Unit/Ml Vial) 5,000 unit SC Q12H [facility] Stop: 06/30/25 01:14 Insulin Human Regular (Myxredlin) 100 unit in 100 mls @ 6.759 mls/hr IV .[id number] PRN; Protocol PRN Reason: PER PROTOCOL Stop: 07/15/25 21:09 Last Titration: 06/16/25 00:24 Dose: 0.1 unit/kg/hr, 6.759 mls/hr Lactated Ringer's (Lactated Ringers) 1,000 mls @ 100 mls/hr IV .Q10H ONE Stop: 06/16/25 11:11 Insulin Degludec (Insulin Degludec 5 Unit/0.05 Ml (Per 5 Units)) 30 unit SC [facility] Stop: 07/16/25 20:59 Insulin Human Lispro (Insulin Lispro (Admelog) 1 Unit/0.01 Ml Unit) 0 unit SC [facility]; Protocol Stop: 07/16/25 07:29 Ondansetron HCl (Ondansetron Inj 2 Mg/Ml Inj 2 Ml) 4 mg IVP Q6H PRN; Protocol PRN Reason: NAUSEA OR VOMITING Stop: 07/16/25 01:10 Pantoprazole Sodium (Pantoprazole Inj 40 Mg Vial) 40 mg IVP QDAY [facility] Stop: 07/16/25 08:59 Discontinued Medications Lactated Ringer's (Lactated Ringers) 1,000 mls @ 1,000 mls/hr IV .Q1H ONE Stop: 06/15/25 22:08 Last Infusion: 06/15/25 23:25 Dose: Infused Sodium Chloride (Ns) 1,000 mls @ 999 mls/hr IV .Q1H1M ONE Stop: 06/15/25 23:39 Last Infusion: 06/16/25 00:26 Dose: Infused Insulin Degludec (Insulin Degludec 5 Unit/0.05 Ml (Per 5 Units)) 30 unit SC X1 ONE Stop: 06/16/25 00:43 Last Admin: 06/16/25 01:01 Dose: 30 unit Insulin Human Regular (Insulin Hum Regular 1 Unit/0.01 Ml (Per Unit)) 10 unit IV X1 ONE Stop: 06/15/25 21:10 Last Admin: 06/15/25 22:24 Dose: 10 unit Ondansetron HCl (Ondansetron Inj 2 Mg/Ml Inj 2 Ml) 4 mg IVP X1 ONE; Protocol Stop: 06/15/25 21:10 Last Admin: 06/15/25 22:20 Dose: 4 mg Assessment & Plan Plan This patient is a 55-year-old female with a history of type 1 diabetes mellitus, hepatitis C, methamphetamine use, and peptic ulcer disease who presented to [facility] ED on 06/15 for abdominal pain and vomiting. Patient was admitted for management of starvation ketoacidosis. #Type 1 diabetes mellitus #Hyperglycemia #High anion gap metabolic acidosis #Lactic acidosis #Starvation ketoacidosis Patient endorses a history of late onset type 1 diabetes mellitus. When to the patient, she has received the appropriate testing outpatient to support the diagnosis of type 1 diabetes mellitus. The patient has been having issues with her insurance and affording her medications, which has resulted in the patient not taking her long-acting insulin for the past 2 days prior to hospitalization. Additionally, the patient barely ate any food over the past 2 days. The patient recognized that she had some abdominal pain, vomiting, and chest pressure, which are signs for her that she might be going into DKA, which brought her to the ED. The symptoms resolved upon obtaining IV fluid hydration and insulin drip in the ED. Diagnostic: In ED, anion gap initially 23 with bicarb 19.1, however ABG was noted to find pH of 7.36 Lactic acid 4.4, which downtrended to 2.6 after receiving IV fluids and insulin drip in ED Beta-hydroxybutyrate on admission over 6.4 Treatment: Patient is status post 2 L IV fluid, insulin regular 10 units, and insulin drip in ED Patient was given insulin degludec 30 on admission to medical floors Resumed patient's home insulin degludec 30 units nightly Sliding scale insulin step 2 Bedside glucose checks ACHS Carbohydrate consistent low diet Continue IV fluid hydration Zofran 4 mg every 6 hours as needed for nausea/vomiting Registered dietitian referral Will trend lactic acid until within normal range #Methamphetamine intoxication #Methamphetamine use disorder Patient endorses longstanding methamphetamine use, did not state for how long, how much, and when her last use was. Diagnostic: ED urine toxicology positive for methamphetamine use Treatment: Counseled patient on methamphetamine cessation Referral to social media sr strategy manager #Vape use disorder Patient endorses actively vaping for the past 4 years, uses about 4 times a day. Prior to this, the patient smoked about half a pack of cigarettes since she was 13 years old. Treatment: Counseled the patient on vaping cessation Referral to smoking cessation counseling Nicotine patch Patient to follow-up outpatient for pulmonary monitoring #History of peptic ulcer disease Patient was recently diagnosed with peptic ulcer disease after finding of hematemesis during the patient's previous hospitalization back in late April. Patient was discharged with Protonix twice daily to complete a 3 to 6-month course. Diagnostic: EGD performed 05/04/2025 found esophageal ulcers with oozing blood and gastritis Treatment: Peptic ulcer disease diet Protonix 40 mg twice daily #Constipation Patient does endorse a history of constipation, likely secondary from her uncontrolled diabetes. Treatment: Senokot daily as needed Will consider metoclopramide if patient is unable to have a bowel movement with Senokot alone #History of hepatitis C Patient endorses a history of hepatitis C and states that she has been treated. According to the patient, she used to follow a physician in [place] for management of this condition, but no longer does as she has finished her treatment course. Diagnostic: Hepatitis C antibody reactive back in 05/03/2025 Hepatitis B antibody nonreactive back in 05/03/2025 Treatment: Patient to follow-up outpatient Patient recommended to get hepatitis B vaccination DVT Prophylaxis: Heparin GI Prophylaxis: Protonix Bowel: Senokot PRN Diet: Carbohydrate consistent low, PUD Perez: N/A Lines: PIV Antibiotics: N/A Code Status: FULL Reason for Hospitalization: Starvation ketoacidosis Other Barriers to Discharge: Blood glucose control Patient plan of care was discussed with the senior resident Dr. Enciso (PGY-2) and attending physician Dr. Aimee Cagle, PGY1 Attending Provider Attestation/Addendum After examination of the patient and review of the clinical data I feel that this patient needs admission to the hospital for further treatment/evaluation. Plan of care discussed with patient and is in agreement. I Sherrie Yu MD, attest that I was physically present for ojeda portions of evaluation, and examined patient, labs and imagings and plan of care were discussed with IM residents team, and I agree with the findings and plans documented above.
--- NOTE | 2025-06-16 01:34 | PD.RESEVENT ---
Documentation for date of: 06/16/25
[2025-06-16] MEDS: HEPARIN SOD INJ 5000 UNIT/ML VIAL SC ×3 (01:55→20:57)
[2025-06-16] MEDS: RINGERS LACTATED 1000 ML 1,000 ML 150 ML IV (01:56)
--- NOTE | 2025-06-16 02:00 | PC.NURSE ---
PT EATING SANDWICH. PER PT RESIDENT PROVIDED FOOD STATED OKAY TO EAT AND DRINK WATER.
[2025-06-16] MEDS: NICOTINE PATCH 7 MG/24 HR PATCH.TD24 TOP (04:29)
[2025-06-16 05:04] LABS: Lactate (Lactic Acid) 1.6 mMol/L (0.4-2.0)
[2025-06-16 05:22] LABS: Basophils # (Auto) 0.1 Thou/mm3 (0.0-0.2); Basophils % (Auto) 1 % (0-2.5); Eosinophils # (Auto) 0.0 Thou/mm3 (0.0-0.5); Eosinophils % (Auto) 1 % (0-10); Hematocrit 37.0 % (36.0-46.0); Hemoglobin 12.1 g/dL (12.0-16.0); Immature Granulocytes Auto 0.01 Thou/mm3 (0.00-0.00); Lymphocytes # (Auto) 1.6 Thou/mm3 (1.0-4.8); Lymphocytes % (Auto) 25 % (10-50); Mean Corpuscular HGB Conc 32.7 g/dl (31.0-37.0); Mean Corpuscular Hemoglobin 28.3 pg (25.0-35.0); Mean Corpuscular Volume 87 fL (80-100); Monocytes # (Auto) 0.7 Thou/mm3 (0.0-0.8); Monocytes % (Auto) 12 % (0-12); Neutrophils # (Auto) 3.8 Thou/mm3 (1.8-7.7); Neutrophils % (Auto) 61 % (37-80); Nucleated Red Blood Cell # 0.00 Thou/mm3 (0.00-0.00); Nucleated Red Blood Cell % 0 /100 WBC (0); Platelet Count 374 Thou/mm3 (140-440); RDW Standard Deviation 41.6 fL (36.4-46.3); Red Blood Count 4.27 Miln/mm3 (4.00-5.20); White Blood Count 6.1 Thou/mm3 (3.6-11.0)
[2025-06-16 05:43] LABS: Alanine Aminotransferase 57 U/L (10-49); Albumin, Serum 3.9 gm/dL (3.5-5.0); Albumin/Globulin Ratio 1.4 (1.2-2.2); Alkaline Phosphatase 74 U/L (46-116); Anion Gap 13 (7-16); Aspartate Amino Transferase 37 U/L (0-34); BUN/Creatinine Ratio 22 Ratio (12-20); Bilirubin,Total 0.6 mg/dL (0.3-1.2); Blood Urea Nitrogen 20 mg/dL (9-23); Calcium 9.9 mg/dL (8.3-10.6); Calcium (Corrected) 10.0 mg/dL (8.5-10.1); Carbon Dioxide 23.8 mMol/L (20.0-31.0); Chloride 99 mMol/L (98-107); Creatinine (Component) 0.9 mg/dL (0.6-1.3); Estimated Creatinine Clearance 63.9 mL/min (>60); Globulin 2.7 gm/dL (2.3-3.5); Glucose 296 mg/dL (74-106); Magnesium 1.4 mg/dL (1.6-2.6); Osmolality,Calculated 285 (275-295); Potassium 4.2 mMol/L (3.4-5.1); Sodium 136 mMol/L (136-145); Total Protein 6.6 gm/dL (5.7-8.2); eGFR > 60 See Note
[2025-06-16] MEDS: INSULIN LISPRO (AdmeLOG) 1 UNIT/0.01 ML UNIT SC ×3 (07:59→17:18)
[2025-06-16] MEDS: Magnesium Sulfate 4 GM Ivpb 4 GM/50 ML BAG IV (09:26)
[2025-06-16] MEDS: INSULIN LISPRO (AdmeLOG) 1 UNIT/0.01 ML UNIT 6 UNIT SC (09:26)
[2025-06-16] MEDS: RINGERS LACTATED 1000 ML 1,000 ML 125 ML IV ×2 (09:26→17:19)
--- NOTE | 2025-06-16 09:48 | ESPR_ITS ---
<Statement entered by Humphrey Cerda MD - 06/17/25 14:46> Patient was examined and case was reviewed with team including attending physician. Note reviewed, I agree with most of its contents and agree with the patient's care. Humphrey Cerda MD PGY-2 Documentation for date of: 06/16/25 Subjective Subjective Interval history: Patient seen and examined this morning. She reports no nausea, no vomiting, no abdominal pain, and no chest pain. No change in bowel movements. States she ran out of her long-acting insulin due to insurance issues. Lives with her . She has no primary care physician and reports a history of four prior DKAs. Denies shortness of breath, dizziness, or other acute symptoms. Exam Vital Signs Temp Pulse Resp BP Pulse Ox O2 Del Method 97.2 F 103 H 15 98/63 99 Room Air 06/16/25 08:00 06/16/25 08:00 06/16/25 08:00 06/16/25 08:00 06/16/25 08:00 06/16/25 08:00 Narrative Exam Physical Exam: General: Alert, no acute distress. Skin: Warm, dry, intact. Head: Normocephalic, atraumatic. Eye: Normal conjunctiva, PERRL. Throat: Oral mucosa moist. No obvious lesions in oropharynx. Cardiovascular: Regular rate and rhythm, systolic murmur best heard at cardiac apex, +S1/S2. Respiratory: Lungs are clear to auscultation, respirations unlabored, no crackles, no wheezing. Gastrointestinal: Soft, nontender, non-distended. No guarding or rebound tenderness. Extremities: No edema, no cyanosis, no clubbing. 2+ radial pulse bilaterally, 2+ pedal pulse bilaterally. Neuro: No focal deficits observed. Conversant, moving all extremities. No overt cerebellar signs/incoordination. Psychiatric: Cooperative, hyperactive affect. Objective Labs 06/17/25 05:52 06/17/25 05:52 Labs: Laboratory Results - last 24 hr 06/15/25 06/15/25 06/15/25 21:25 22:18 23:00 WBC 9.5 RBC 5.24 H Hgb 15.4 Hct 46.5 H MCV 89 MCH 29.4 MCHC 33.1 RDW Std Deviation 43.6 Plt Count 494 H D Neut % (Auto) 67 Lymph % (Auto) 25 Alger % (Auto) 7 Eos % (Auto) 0 Baso % (Auto) 1 Neut # (Auto) 6.4 Lymph # (Auto) 2.4 Alger # (Auto) 0.6 Eos # (Auto) 0.0 Baso # (Auto) 0.1 Immature Gran # (Auto) 0.04 H Absolute Nucleated RBC 0.00 Immature Gran % 0 Nucleated RBC % 0 ESR 35 H Puncture Site Right Radial ABG pH 7.36 ABG pCO2 36 ABG pO2 80 L ABG HCO3 20 ABG O2 Saturation 96 ABG Base Excess -5 L VBG pH VBG pCO2 VBG pO2 VBG O2 Sat (Yaron) VBG Base Excess FiO2 21 Sodium 129 L Potassium 4.8 Chloride 87 L Carbon Dioxide 19.1 L Anion Gap 23 H BUN 28 H Creatinine 1.3 Estim Creat Clear Calc 44.6 L eGFR 49 L BUN/Creatinine Ratio 22 H Glucose 586 H* Estimated Ave Glu mg/dL 223 H Hemoglobin A1c 9.4 H Calculated Osmolality 291 Lactic Acid 4.4 H* Calcium 13.0 H* Corrected Calcium 13.0 H Magnesium 1.9 Total Bilirubin 0.8 Direct Bilirubin 0.2 AST 54 H ALT 80 H Alkaline Phosphatase 102 Total Creatine Kinase 20 L Troponin I < 0.020 C-Reactive Prot, Quant 2.2 H B-Natriuretic Peptide < 20 Total Protein 8.5 H Albumin 5.0 Globulin 3.5 Albumin/Globulin Ratio 1.4 Amylase 33 Lipase 29 Beta-Hydroxybutyrate/Acetoacetate > 6.4 H Procalcitonin 0.14 TSH 1.64 HCG, Qual Negative Ur Collection Type Clean Catch Urine Color Lt-Yellow Urine Clarity Clear Urine pH 5.5 Ur Specific Withams 1.025 Urine Protein Negative Urine Glucose (UA) 4+ A Urine Ketones 4+ A Urine Blood Negative Urine Nitrite Negative Urine Bilirubin Negative Urine Urobilinogen (Auto) Negative Ur Leukocyte Esterase Negative Urine RBC 1 Urine WBC 2 Ur Squamous Epith Cells 2 Urine Bacteria None Ur Culture Indicated? Not Indicated Urine Opiates Screen Negative Urine Fentanyl Screen Negative Ur Barbiturates Screen Negative U Amphetamin/Meth Scrn Positive A U Benzodiazepines Scrn Negative U Cocaine Metab Screen Negative U Marijuana (THC) Screen Negative Ethyl Alcohol < 3.0 06/16/25 06/16/25 00:05 04:35 WBC 6.1 RBC 4.27 Hgb 12.1 D Hct 37.0 MCV 87 MCH 28.3 MCHC 32.7 RDW Std Deviation 41.6 Plt Count 374 D Neut % (Auto) 61 Lymph % (Auto) 25 Alger % (Auto) 12 Eos % (Auto) 1 Baso % (Auto) 1 Neut # (Auto) 3.8 Lymph # (Auto) 1.6 Alger # (Auto) 0.7 Eos # (Auto) 0.0 Baso # (Auto) 0.1 Immature Gran # (Auto) 0.01 H Absolute Nucleated RBC 0.00 Immature Gran % 0 Nucleated RBC % 0 ESR Puncture Site ABG pH ABG pCO2 ABG pO2 ABG HCO3 ABG O2 Saturation ABG Base Excess VBG pH 7.30 L VBG pCO2 50 VBG pO2 32 VBG O2 Sat (Yaron) 55 L VBG Base Excess -2 FiO2 Sodium 139 D 136 Potassium 3.8 D 4.2 Chloride 99 99 Carbon Dioxide 23.1 23.8 Anion Gap 17 H 13 BUN 25 H 20 Creatinine 1.0 0.9 Estim Creat Clear Calc 58.0 L 63.9 eGFR > 60 > 60 BUN/Creatinine Ratio 25 H 22 H Glucose 261 H D [address] Glu mg/dL Hemoglobin A1c Calculated Osmolality 290 285 Lactic Acid 2.6 H 1.6 Calcium 10.6 D 9.9 Corrected Calcium 10.0 D Magnesium 1.4 L Total Bilirubin 0.6 Direct Bilirubin AST 37 H ALT 57 H Alkaline Phosphatase 74 D Total Creatine Kinase Troponin I C-Reactive Prot, Quant B-Natriuretic Peptide Total Protein 6.6 Albumin 3.9 D Globulin 2.7 Albumin/Globulin Ratio 1.4 Amylase Lipase Beta-Hydroxybutyrate/Acetoacetate Procalcitonin TSH HCG, Qual Ur Collection Type Urine Color Urine Clarity Urine pH Ur Specific Withams Urine Protein Urine Glucose (UA) Urine Ketones Urine Blood Urine Nitrite Urine Bilirubin Urine Urobilinogen (Auto) Ur Leukocyte Esterase Urine RBC Urine WBC Ur Squamous Epith Cells Urine Bacteria Ur Culture Indicated? Urine Opiates Screen Urine Fentanyl Screen Ur Barbiturates Screen U Amphetamin/Meth Scrn U Benzodiazepines Scrn U Cocaine Metab Screen U Marijuana (THC) Screen Ethyl Alcohol ABG Interpretation ABG results: 06/15/25 06/16/25 23:00 00:05 ABG pH 7.36 ABG pCO2 36 ABG pO2 80 L ABG HCO3 20 ABG O2 Saturation 96 ABG Base Excess -5 L VBG pH 7.30 L VBG pCO2 50 VBG pO2 32 VBG Base Excess -2 Quality Measures Quality Measures VTE prophylaxis Assessment & Plan Assessment Current Active Medications: Generic Name Dose Route Start Last Admin Trade Name Louie PRN Reason Stop Dose Admin Acetaminophen 650 mg 06/16/25 01:11 Acetaminophen 325 Mg Tablet PO 07/16/25 01:10 Q6H PRN Fever >101.5 or pain 1-3 Dextrose 25 ml 06/16/25 01:11 Dextrose 50%-Water Inj 50 Ml Syringe IV 07/16/25 01:10 Q15MIN PRN BG 50-70 responsive npo pt Dextrose 50 ml 06/16/25 01:11 Dextrose 50%-Water Inj 50 Ml Syringe IV 07/16/25 01:10 Q15MIN PRN BG <50 OR BG <70 & pt unresponsive Glucagon 1 mg 06/16/25 01:11 Glucagon Inj 1 Mg Vial IM Q15MIN PRN BG <70, and no IV access Heparin Sodium (Porcine) 5,000 unit 06/16/25 01:15 06/16/25 01:55 Heparin Sod Inj 5000 Unit/Ml Vial SC 06/30/25 01:14 5,000 unit Q12H CHUY Administration Insulin Human Regular 100 unit in 100 mls @ 6.759 mls/hr 06/15/25 21:10 06/16/25 02:02 Myxredlin IV 07/15/25 21:09 Infused .[id number] PRN Titration PER PROTOCOL Protocol 0.1 UNIT/KG/HR Lactated Ringer's 1,000 mls @ 125 mls/hr 06/16/25 08:07 06/16/25 09:26 Lactated Ringers IV 06/17/25 00:06 125 mls/hr .Q8H CHUY Administration Magnesium Sulfate 4 gm in 50 mls @ 12.5 mls/hr 06/16/25 08:11 06/16/25 09:26 Magnesium Sulfate Ivpb IV 06/16/25 12:10 12.5 mls/hr X1 ONE Administration Influenza Virus Vaccine Quadrival 0.5 ml 06/17/25 06:00 Influenza Virus 0.5 Ml Syringe IMi 06/17/25 06:01 .ONCE ONE Insulin Degludec 40 unit 06/16/25 21:00 Insulin Degludec 5 Unit/0.05 Ml (Per 5 Units) SC 07/16/25 20:59 HS [facility] Insulin Human Lispro 0 unit 06/16/25 07:30 06/16/25 07:59 Insulin Lispro (Admelog) 1 Unit/0.01 Ml Unit SC 07/16/25 07:29 5 unit AC CHUY Administration Protocol Ondansetron HCl 4 mg 06/16/25 01:11 Ondansetron Inj 2 Mg/Ml Inj 2 Ml IVP 07/16/25 01:10 Q6H PRN NAUSEA OR VOMITING Protocol Pantoprazole Sodium 40 mg 06/16/25 09:00 06/16/25 09:29 Pantoprazole Inj 40 Mg Vial IVP 07/16/25 08:59 40 mg BID CHUY Administration Pharmacy Consult 1 each 06/17/25 06:00 Pharmacy To Consult Pneumovacc XX 07/17/25 05:59 PRN PRN CONSULT Sennosides 1 tab 06/16/25 01:50 Senna/Docusate Sod 1 Tab Tablet PO 07/16/25 01:49 QDAY PRN CONSTIPATION Protocol Plan 55F with type 1 diabetes mellitus, methamphetamine use disorder, hepatitis C, and history of four DKAs, admitted for starvation ketoacidosis after running out of long-acting insulin. Improving with fluids and insulin therapy. #Type 1 diabetes mellitus #Hyperglycemia #High anion gap metabolic acidosis #Lactic acidosis #Starvation ketoacidosis Patient endorses a history of late onset type 1 diabetes mellitus. When to the patient, she has received the appropriate testing outpatient to support the diagnosis of type 1 diabetes mellitus. The patient has been having issues with her insurance and affording her medications, which has resulted in the patient not taking her long-acting insulin for the past 2 days prior to hospitalization. Additionally, the patient barely ate any food over the past 2 days. The patient recognized that she had some abdominal pain, vomiting, and chest pressure, which are signs for her that she might be going into DKA, which brought her to the ED. The symptoms resolved upon obtaining IV fluid hydration and insulin drip in the ED. Diagnostic: In ED, anion gap initially 23 with bicarb 19.1, however ABG was noted to find pH of 7.36 Lactic acid 4.4, which downtrended to 2.6 after receiving IV fluids and insulin drip in ED Beta-hydroxybutyrate on admission over 6.4 06/16: GAP closing, symptoms resolved; due to 2 days without basal insulin and poor PO intake. BG this morning 290s administered 6 units lispro and increased degludec to 40, patient states shes on 30 units of long acting BID. Plan: * Increase insulin degludec to 40 units nightly. * Continue SSI step 2; AC/HS glucose checks. * Repeat renal panel for GAP closure x2 * Carb-consistent diet. * Replete magnesium. * Continue IV fluids until glucose consistently <250 and tolerating PO well. * Trend beta-hydroxybutyrate until normalizing. * Discussed importance of adherence; patient attributes lapse to insurance issues -> case management will assist for coverage assistance and follow-up resources. * Zofran 4 mg every 6 hours as needed for nausea/vomiting * Registered dietitian referral * Patient has no PCP -> arrange outpatient PCP before discharge. #Methamphetamine use disorder Patient endorses longstanding methamphetamine use, did not state for how long, how much, and when her last use was. Diagnostic: ED urine toxicology positive for methamphetamine use Plan: * Continue cessation counseling. * Social work for substance use resources. * Screen for withdrawal symptoms daily. #Vape use disorder Patient endorses actively vaping for the past 4 years, uses about 4 times a day. Prior to this, the patient smoked about half a pack of cigarettes since she was 13 years old. Plan: * Smoking/vaping cessation counseling. * Offer nicotine patch. * Outpatient pulmonary follow-up recommended. #History of peptic ulcer disease Patient was recently diagnosed with peptic ulcer disease after finding of hematemesis during the patient's previous hospitalization back in late April. Patient was discharged with Protonix twice daily to complete a 3 to 6-month course. Diagnostic: EGD performed 05/04/2025 found esophageal ulcers with oozing blood and gastritis Plan: * Continue Protonix 40 mg BID. * Continue Reglan before meals. * PUD diet. #Constipation Patient does endorse a history of constipation, likely secondary from her uncontrolled diabetes. Plan: * Senokot PRN. * Consider metoclopramide if needed. #History of hepatitis C Patient endorses a history of hepatitis C and states that she has been treated. According to the patient, she used to follow a physician in [place] for management of this condition, but no longer does as she has finished her treatment course. Diagnostic: Hepatitis C antibody reactive back in 05/03/2025 Hepatitis B antibody nonreactive back in 05/03/2025 Plan: * Outpatient follow-up. * Recommend hepatitis B vaccination. Health maintenance: DVT Prophylaxis: Heparin GI Prophylaxis: Protonix Bowel: Senokot PRN Diet: Carbohydrate consistent low, PUD Perez: N/A Lines: PIV Antibiotics: N/A Code Status: FULL Reason for Hospitalization: Starvation ketoacidosis Other Barriers to Discharge: Blood glucose control ----- Plan discussed with attending physician Dr. Steele and senior resident Dr. Matthew Decker MD PGY-1 Internal Medicine Attending Provider Attestation/Addendum I have seen and examined the patient. I was physically present for the ojeda portions of the services provided including history, physical exam, diagnosis, treatment plans and orders. I agree with assessment and plan of care as documented by residents. Even though this this note was carefully revised there may still be minor errors in soccer ball assembler due to voice recognition software. Duarte Steele MD
[2025-06-16] MEDS: THIAMINE INJ 100 MG/ML VIAL 2 ML IVP (11:23)
[2025-06-16 14:15] LABS: Albumin, Serum 3.6 gm/dL (3.5-5.0); Anion Gap 8 (7-16); BUN/Creatinine Ratio 23 Ratio (12-20); Blood Urea Nitrogen 16 mg/dL (9-23); Calcium 8.4 mg/dL (8.3-10.6); Calcium (Corrected) 8.7 mg/dL (8.5-10.1); Carbon Dioxide 29.0 mMol/L (20.0-31.0); Chloride 100 mMol/L (98-107); Creatinine (Component) 0.7 mg/dL (0.6-1.3); Estimated Creatinine Clearance 80.1 mL/min (>60); Glucose 218 mg/dL (74-106); Osmolality,Calculated 282 (275-295); Phosphorous 2.8 mg/dL (2.4-5.1); Potassium 3.5 mMol/L (3.4-5.1); Sodium 137 mMol/L (136-145); eGFR > 60 See Note
--- NOTE | 2025-06-16 14:48 | PC.SS ---
Rounding: SS spoke to financial veneer sample maker pt is not a candidate for HPE, pt also cannot afford covered [place], pt to be treated as shyann.
--- NOTE | 2025-06-16 15:10 | PC.NURSE ---
Went in to check on patient. Patient visibly upset and states that she wants to leave. She is tired of people coming in her room and bothering her. She does not want to be here anymore. She stated that her is on his way and she needs to leave. She wants to go home and She has outside matters she needs to deal with. She asked about leaving against medical advice. Talked to the patient and educated her that consistent high blood sugar is extremely dangerous and can severly harm the patient. Educated her that we need to ensure that we have the patient on the correct sliding scale before she is discharged that way she can go home and continue to monitor her blood sugars safely and has the right recources. Explained to patient that I can place a sign on the door that says, check with nurse before entering to allow her some privacy. She was thankful for the education. She said she will stay because she wants to make sure she doesn't end up going back in to DKA. Informed patient that if she would like to speak with me again about any other concerns that she can call me on the call light anytime. Patient said she feels better and she will stay after all.
[2025-06-16] MEDS: INSULIN DEGLUDEC 5 UNIT/0.05 ML (PER 5 UNITS) 40 UNIT SC (20:57)
[2025-06-17] VITALS: BP 138/84; PULSE 86; PULSE 91; RESP 15; TEMP 36.1; O2SAT 96
[2025-06-17 04:00] VITALS: BP 97/59; PULSE 79; PULSE 85; RESP 18; TEMP 36.1; O2SAT 97
[2025-06-17] MEDS: ACETAMINOPHEN 325 MG TABLET 650 MG PO (05:28)
[2025-06-17 06:26] LABS: Basophils # (Auto) 0.0 Thou/mm3 (0.0-0.2); Basophils % (Auto) 1 % (0-2.5); Eosinophils # (Auto) 0.1 Thou/mm3 (0.0-0.5); Eosinophils % (Auto) 3 % (0-10); Hematocrit 35.9 % (36.0-46.0); Hemoglobin 11.8 g/dL (12.0-16.0); Immature Granulocytes Auto 0.00 Thou/mm3 (0.00-0.00); Lymphocytes # (Auto) 1.7 Thou/mm3 (1.0-4.8); Lymphocytes % (Auto) 49 % (10-50); Mean Corpuscular HGB Conc 32.9 g/dl (31.0-37.0); Mean Corpuscular Hemoglobin 28.8 pg (25.0-35.0); Mean Corpuscular Volume 88 fL (80-100); Monocytes # (Auto) 0.4 Thou/mm3 (0.0-0.8); Monocytes % (Auto) 12 % (0-12); Neutrophils # (Auto) 1.3 Thou/mm3 (1.8-7.7); Neutrophils % (Auto) 36 % (37-80); Nucleated Red Blood Cell # 0.00 Thou/mm3 (0.00-0.00); Nucleated Red Blood Cell % 0 /100 WBC (0); Platelet Count 304 Thou/mm3 (140-440); RDW Standard Deviation 41.4 fL (36.4-46.3); Red Blood Count 4.10 Miln/mm3 (4.00-5.20); White Blood Count 3.6 Thou/mm3 (3.6-11.0)
[2025-06-17 06:56] LABS: Alanine Aminotransferase 48 U/L (10-49); Albumin, Serum 3.4 gm/dL (3.5-5.0); Albumin/Globulin Ratio 1.4 (1.2-2.2); Alkaline Phosphatase 66 U/L (46-116); Anion Gap 9 (7-16); Aspartate Amino Transferase 43 U/L (0-34); BUN/Creatinine Ratio 14 Ratio (12-20); Bilirubin,Total 0.3 mg/dL (0.3-1.2); Blood Urea Nitrogen 7 mg/dL (9-23); Calcium 8.3 mg/dL (8.3-10.6); Calcium (Corrected) 8.8 mg/dL (8.5-10.1); Carbon Dioxide 27.3 mMol/L (20.0-31.0); Chloride 103 mMol/L (98-107); Creatinine (Component) 0.5 mg/dL (0.6-1.3); Estimated Creatinine Clearance 115.0 mL/min (>60); Globulin 2.5 gm/dL (2.3-3.5); Glucose 222 mg/dL (74-106); Magnesium 1.5 mg/dL (1.6-2.6); Osmolality,Calculated 282 (275-295); Phosphorous 2.1 mg/dL (2.4-5.1); Potassium 3.6 mMol/L (3.4-5.1); Sodium 139 mMol/L (136-145); Total Protein 5.9 gm/dL (5.7-8.2); eGFR > 60 See Note
[2025-06-17] MEDS: INSULIN LISPRO (AdmeLOG) 1 UNIT/0.01 ML UNIT SC ×2 (07:50→12:30)
[2025-06-17 08:00] VITALS: BP 104/62; PULSE 87; PULSE 93; RESP 26; TEMP 36.8; O2SAT 98
[2025-06-17] MEDS: THIAMINE INJ 100 MG/ML VIAL 2 ML IVP (08:41)
[2025-06-17] MEDS: HEPARIN SOD INJ 5000 UNIT/ML VIAL SC (08:42)
[2025-06-17 08:44] VITALS: PULSE 102; RESP 18; RESP 98
[2025-06-17] MEDS: MAGNESIUM OXIDE 400 MG TABLET PO (09:08)
[2025-06-17] MEDS: Magnesium Sulfate 2 GM Ivpb 2 GM/50 ML BAG IV (09:08)
[2025-06-17] MEDS: SODIUM CHLORIDE 0.9% 1000 ML 1,000 ML 125 ML IV (09:09)
--- NOTE | 2025-06-17 10:48 | ESDS_ITS ---
Planned Discharge Date 06/17/25 DS: Providers Provider Date of admission: 06/16/25 01:19 Primary care physician: Physician No Primary/Family Admitting Provider: Sherrie Yu MD Attending Provider on Admission: Sherrie Yu MD Consults: 06/16/25 02:23 Referral Registered Dietitian Routine Comment: 06/16/25 02:27 Referral Smoking Cessation Counseling Routine Comment: Smoking Cessation Education Needed Instructions: Patient vapes 4 times per day for 4 years, smoked cigarettes before that since 13 y/o, 1/2 pack per day 06/16/25 02:28 Health Equity Referral - Knowledge Deficit Routine Comment: Positive screening for knowledge deficit needs. Health Equity Referral - Nutrition Routine Comment: Positive screening for nutrition needs. 06/16/25 02:29 Referral Financial Counseling Routine Comment: Attending Provider on DC: Duarte Steele MD Discharging Provider: Kyung Decker MD DS: Diagnosis Problem List Completed Was Problem List Reviewed/Reconciled?: Yes Hospital Course Hospital Course Hospital course: 55-year-old female with a history of type 1 diabetes mellitus, hepatitis C, peptic ulcer disease, and methamphetamine use disorder who presented with abdominal pain, vomiting, and hyperglycemia after running out of her long-acting insulin for two days. She reported minimal oral intake during this period and recognized symptoms similar to prior DKA episodes. Initial evaluation showed high anion gap metabolic acidosis with elevated beta-hydroxybutyrate, mild lactic acidosis, and significant hyperglycemia. She was treated in the emergency department with IV fluids, IV insulin, and electrolyte correction and showed rapid improvement. She was transitioned off the insulin drip once her anion gap closed and her glucose stabilized. Her nausea and abdominal pain resolved, she was tolerating oral intake, and her electrolytes, including magnesium, were repleted to normal range. She reported no further nausea, vomiting, chest pain, or bowel changes before discharge. The underlying cause of this episode was lack of insulin access due to insurance issues, and the patient also endorsed having had four prior DKA admissions for similar reasons. Case management met with the patient regarding insurance resources and assistance establishing outpatient care, as she currently does not have a primary care provider. Her PUD regimen was resumed, and no acute complications were noted during hospitalization. Methamphetamine use was discussed, and social work resources were offered. The patient was stable, alert, and medically appropriate for discharge. Diagnosis during admission: #Type 1 diabetes mellitus #Hyperglycemia #High anion gap metabolic acidosis #Lactic acidosis #Starvation ketoacidosis #Methamphetamine use disorder #Vape use disorder #History of peptic ulcer disease #Constipation #History of hepatitis C Discharge Instructions: Medications * Take your long-acting insulin (Degludec) 50 units once daily at night * This is extremely important to prevent another DKA episode. * Continue using your short-acting insulin (novolog) 6 units three times with meals as you normally do. * Continue Protonix 40 mg twice daily for your stomach ulcers. Follow-Up * You must establish a primary care doctor. If you wish, you may see one of our residents at the [facility] at address below. Please call the number below to make an appointment. Case management will help you set this up. * Follow up in 1-2 weeks for insulin adjustment and repeat labs. Diet * Follow a carbohydrate-controlled diet. * Drink plenty of water. When to Return to the ER Come back immediately if you have: * Persistent Vomiting * Severe abdominal pain * Rapid breathing * Blood sugar >300 not coming down after insulin administration. * Cannot eat or drink * Confusion or feeling faint Substance Use * Urine showed methamphetamine use. We strongly recommend stopping as it worsens dehydration and increases DKA risk. * Social work has been asked to help if you?d like assistance quitting. [facility] [address] [place] [address] ----- Plan discussed with attending physician Dr. Cedric Decker MD PGY-1 Internal Medicine Time Spent with Patient Time attestation: Total time spent providing and/or coordinating discharge services: 35 minutes Time spent: Greater than 30 minutes Exam Vital Signs Temp Pulse Resp BP Pulse Ox O2 Del Method 98.2 F 102 H 18 104/62 98 Room Air 06/17/25 08:00 06/17/25 08:44 06/17/25 08:44 06/17/25 08:00 06/17/25 08:00 06/17/25 08:00 Narrative Exam General: Alert, no acute distress. Skin: Warm, dry, intact. Head: Normocephalic, atraumatic. Eye: Normal conjunctiva, PERRL. Throat: Oral mucosa moist. No obvious lesions in oropharynx. Cardiovascular: Regular rate and rhythm, systolic murmur best heard at cardiac apex, +S1/S2. Respiratory: Lungs are clear to auscultation, respirations unlabored, no crackles, no wheezing. Gastrointestinal: Soft, nontender, non-distended. No guarding or rebound tenderness. Extremities: No edema, no cyanosis, no clubbing. 2+ radial pulse bilaterally, 2+ pedal pulse bilaterally. Neuro: No focal deficits observed. Conversant, moving all extremities. No overt cerebellar signs/incoordination. Psychiatric: Cooperative, hyperactive affect. Discharge Plan Plan Patient Disposition: HOME (Self Care) Care Plan Goals: Discharge Instructions: Medications * Take your long-acting insulin (Degludec) 50 units once daily at night * This is extremely important to prevent another DKA episode. * Continue using your short-acting insulin (novolog) 6 units three times with meals as you normally do. * Continue Protonix 40 mg twice daily for your stomach ulcers. Follow-Up * You must establish a primary care doctor. If you wish, you may see one of our residents at the [facility] at address below. Please call the number below to make an appointment. Case management will help you set this up. * Follow up in 1-2 weeks for insulin adjustment and repeat labs. Diet * Follow a carbohydrate-controlled diet. * Drink plenty of water. When to Return to the ER Come back immediately if you have: * Persistent Vomiting * Severe abdominal pain * Rapid breathing * Blood sugar >300 not coming down after insulin administration. * Cannot eat or drink * Confusion or feeling faint Substance Use * Urine showed methamphetamine use. We strongly recommend stopping as it worsens dehydration and increases DKA risk. * Social work has been asked to help if you?d like assistance quitting. [facility] [address] [place] [address] Prescriptions/Referrals Prescriptions/Med Rec: Continued (DME) Accu-Chek Evelyn Plus test strp Strip See Rx Instructions .Route Qty: 100 0RF Rx Instructions: As directed (DME) pen needle, diabetic [1st Tier Unifine Pentips] 31 gauge x 3/16 needle See Rx Instructions .Route Qty: 100 0RF Rx Instructions: As directed glucagon 3 mg/actuation spray,non-aerosol 3 mg intranasal [id number] PRN (Reason: hypoglycemia) Qty: 2 0RF pantoprazole 40 mg tablet,delayed release (DR/EC) 40 mg PO BID 30 Days Qty: 60 1RF (DME) Truetest Test Strips Strip See Rx Instructions .Route Qty: 100 0RF Rx Instructions: As directed (DME) blood-glucose meter [True Metrix Glucose Meter] Misc See Rx Instructions .Route Qty: 1 0RF Rx Instructions: As directed (DME) lancets [Accu-Chek Softclix Lancets] Misc See Rx Instructions .Route Qty: 200 0RF Rx Instructions: As directed Changed insulin aspart U-100 [Novolog FlexPen U-100 Insulin] 100 unit/mL (3 mL) insulin pen 6 unit subcut TIDWMEAL 30 Days Qty: 5.4 2RF insulin degludec 200 unit/mL (3 mL) insulin pen 50 unit subcut HS 30 Days Qty: 7.5 2RF Referrals: No Primary/Family,Physician [Primary Care Provider] Patient/Caregiver Discharge Instructions Education Materials: Diabetes: Keeping Feet Healthy, Diabetes: Meal Planning, Diabetic Ketoacidosis Print Language: Kuwaiti Stand Alone Forms: Consuelo Award Info., Patient Portal Info Letter Discharge Order Discharge Orders: Discharge (Routine); Ordered 06/17/25 Ordered By: Humphrey Cerda Quality Discharge Quality Measures VTE prophylaxis MD Attestestation MD Attestation I have seen and examined the patient. I was physically present for the ojeda portions of the services provided including history, physical exam, diagnosis, treatment plans and orders. I agree with assessment and plan of care as documented by residents. Even though this this note was carefully revised there may still be minor errors in senior functional analyst due to voice recognition software. Duarte Steele MD
[2025-06-17 12:00] VITALS: BP 99/68; PULSE 75; PULSE 78; RESP 18; TEMP 36.6; O2SAT 97
[2025-06-17] MEDS: NAPH,KPH MBDB 1 PACKET (1.5 GM) PO (13:58)
[2025-06-17 16:00] VITALS: BP 107/59; PULSE 74; RESP 18; TEMP 36.7; O2SAT 97
== END 2025-06-17 16:08 | disposition home or self-care (01) | DRG 639 ==
LOC: SERX 06-16 00:41 → SERHOLD 06-16 01:28 → S2NX 06-16 04:05
PROVIDERS: Student in an Organized Health Care Education/Training Program; Admitting Provider Student in an Organized Health Care Education/Training Program; Emergency Provider Emergency Medicine; Visit Provider Student in an Organized Health Care Education/Training Program
DX: E10.10 Type 1 diabetes mellitus with ketoacidosis without coma (principal); B19.20 Unspecified viral hepatitis C without hepatic coma; Z87.11 Personal history of peptic ulcer disease; F15.10 Other stimulant abuse, uncomplicated; K59.00 Constipation, unspecified; U07.0 Vaping-related disorder; Z79.899 Other long term (current) drug therapy; Z87.891 Personal history of nicotine dependence; Z88.5 Allergy status to narcotic agent
CPT/HCPCS: 36415; 36600; 71045; 80048; 80053; 80069; 80307; 80320; 81001; 82010; 82150; 82248; 82550; 82803; 83036; 83605; 83690; 83735; 83880; 84100; 84145; 84443; 84484; 84703; 85025; 85652; 86140; 87040; 87502; 87635; 90677; 90686; 93005; 96361; 96374; 99284; J1644; J1815; J2405; J2470; J3411; J3475; J7030; J7120; A9270; G0480; J9060